=== PATIENT | female | born 1935 | race Caucasian/White ===

== ENCOUNTER 2018-06-27 12:54 | Emergency (ER) | payer MEDICARE, OTHER ==
[~2018-06-27] VITALS: Ht 154.9 cm; Wt 52.6 kg
[2018-06-27] MEDS ORDERED: CHLORTHALIDONE25 MG PO (13:20)
[2018-06-27] MEDS ORDERED: POTASSIUM CHLO10 ME1 PO (13:20)
--- NOTE | 2018-06-28 00:53 | EKG ---
[facility] [address] [place] [address] Signed Sinus rhythm with 1st degree AV block with frequent premature ventricular complexes and premature atrial complexes Otherwise normal ECG No previous ECGs available Confirmed by CANDACE POSADAS MD ([id number]) on 06/28/2018 12:53:19 AM Electronically Signed By: CANDACE POSADAS MD 06/28/18 0053 PATIENT NAME: MICHELLE LOMBARDI Stacia Electrocardiogram DATE OF : 35 PHYSICIAN: CANDACE POSADAS MD REPORT #: [id number] REPORT IS CONFIDENTIAL AND NOT TO BE RELEASED WITHOUT AUTHORIZATION
== END 2018-06-27 15:17 | disposition home or self-care (01) ==
LOC: ED 12:54
DX: T78.40XA Allergy, unspecified, initial encounter (principal); R05 Cough; I10 Essential (primary) hypertension; Z90.49 Acquired absence of other specified parts of digestive tract; Z91.030 Bee allergy status; Z91.048 Other nonmedicinal substance allergy status; Z79.899 Other long term (current) drug therapy
CPT/HCPCS: 71046; 80053; 83735; 83880; 84484; 85025; 93005; 93010; 94640; 99284-25

== ENCOUNTER 2018-12-10 07:46 | Emergency (ER) | payer MEDICARE, OTHER ==
[~2018-12-10] VITALS: Ht 154.9 cm; Wt 52.6 kg
[~2018-12-10 07:46] MED LIST: CHLORTHALIDONE25 MG PO; POTASSIUM CHLO10 ME1 PO
[2018-12-10] MEDS ORDERED: GABAPENTIN300 MG PO (07:56)
[2018-12-10] MEDS ORDERED: VENTOLIN HFA18 GM INH ×2 (07:57→10:26)
[2018-12-10] MEDS ORDERED: PREDNISONE20 MG PO (09:44)
== END 2018-12-10 10:33 | disposition home or self-care (01) ==
LOC: ED 07:46
DX: J45.901 Unspecified asthma with (acute) exacerbation (principal); I10 Essential (primary) hypertension; Z87.891 Personal history of nicotine dependence; Z91.030 Bee allergy status; Z79.899 Other long term (current) drug therapy
CPT/HCPCS: 71045; 80053; 83880; 84484; 85025; 94640; 96374; 99285-25; J2930

== ENCOUNTER 2018-12-25 17:39 | Emergency (ER) | payer MEDICARE, OTHER ==
[~2018-12-25] VITALS: Ht 154.9 cm; Wt 52.6 kg
[~2018-12-25 17:39] MED LIST changes: +GABAPENTIN300 MG PO; +PREDNISONE20 MG PO; +VENTOLIN HFA18 GM INH
--- OUTSIDE RECORDS SUMMARY | 2018-12-25 17:42 | XMS ---
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 - 2 Visits in 30 Days CARE PROVIDERS CK GILMORE Physician Floor Scraper 12/10/2018-Current PHONE: [phone] Ck Castro Treatment Current PAC PHONE: Unknown [facility] Current Orthopedic Surgery \T\ Fracture Clinic PHONE: Unknown Faisal has no Care Guidelines for this patient. E.DZabrina VISIT COUNT (12 MO.) 3 KATHY Echeverria TOTAL 3 NOTE: Visits indicate total known visits. ED/UCC VISIT TRACKING (12 MO.) 12/25/2018 17:40 [facility] [place] TYPE: Emergency COMPLAINT: - AFIB 12/10/2018 07:47 [facility] [place] TYPE: Emergency COMPLAINT: - SOB DIAGNOSES: - Shortness of breath - Personal history of nicotine dependence - Other usp (current) drug therapy - Essential (primary) hypertension - Bee allergy status - Unspecified asthma with (acute) exacerbation 06/27/2018 13:03 KATH[facility] [place] TYPE: Emergency COMPLAINT: - SOB/COUGH DIAGNOSES: - Essential (primary) hypertension - Cough - Other nonmedicinal substance allergy status - Acquired absence of other specified parts of digestive tract - Bee allergy status - Other terminal clerk (current) drug therapy - Allergy, unspecified, initial encounter INPATIENT VISIT TRACKING (12 MO.) No inpatient visits to display in this time frame [email or web address]
--- NOTE | 2018-12-26 11:24 | EKG ---
[facility] [address] [facility] [place], [place] [address] Signed Sinus tachycardia Inferior infarct , age undetermined Abnormal ECG When compared with ECG of 27-JUN-2018 13:12, Inferior infarct is now present Confirmed by MIRA TRIPATHI DO ([id number]) on 12/26/2018 11:23:41 AM Electronically Signed By: MIRA TRIPATHI DO 12/26/18 1124 PATIENT NAME: MARIA CMICHELLE Electrocardiogram DATE OF : 35 PHYSICIAN: MIRA TRIPATHI DO REPORT #: [id number] REPORT IS CONFIDENTIAL AND NOT TO BE RELEASED WITHOUT AUTHORIZATION
== END 2018-12-25 19:47 | disposition home or self-care (01) ==
LOC: ED 17:39
DX: R00.0 Tachycardia, unspecified (principal); I10 Essential (primary) hypertension; Z91.030 Bee allergy status; Z88.8 Allergy status to other drugs, medicaments and biological substances; Z79.899 Other long term (current) drug therapy
CPT/HCPCS: 71045; 80048; 84484; 85025; 85379; 93005; 93010; 96374; 99285-25

== ENCOUNTER 2019-09-17 11:11 | Emergency (ER) | payer MEDICARE, OTHER ==
[~2019-09-17] VITALS: Ht 154.9 cm; Wt 52.6 kg
--- OUTSIDE RECORDS SUMMARY | ~2019-09-17 | XMS | Encounter Summary ---
Demographics + + + | Address | [address] | | | [place] [address] | + + + | Home Phone | | + + + | Preferred Language | Unknown | + + + | Marital Status | | + + + | Amish Affiliation | Unknown | + + + | Race | Unknown | + + + | Ethnic Group | Unknown | + + + Author + + + | Author | [facility] | | | and [place] | + + + | Organization | [facility] | | | [...] Team Providers + +------+ + | Care Linderman Machine Operator Name | Role | Phone | + +------+ + | Jaz Desir | PCP | | | PA-C | | | + +------+ + Reason for Visit +--------+ + | Reason | Comments | +--------+ + | Other | [facility] Urgent Report | +--------+ + Encounter Details +--------+ + + + + | Date | Type | Department | Care Team | Description | +--------+ + + + + | 09/15/ | Documentati | [facility] | Raghu Montilla, | Other ([facility] | | 2019 | on | CARDIOLOGY [place] | Technologist | Urgent Report) | | | | [address] | | | | | | [place] | | | | | | [address] | | | | | | [phone] | | | +--------+ + + + [...] documented as of this encounter Progress Notes Raghu Montilla, Technologist - 09/16/2019 11:45 AM PDTReceived urgent report on : 020 Pt had an an urgent report: 09/15/2019 00:01, Possible 2nd degree AV block. 09/08/2019 04:26, Possible 2nd degree AV block. 09/13/2019 00:51, Possible 2nd degree AV block. 14 day monitor was placed on 09/04/2019 Medications: I called patient and I will continue to monitor. Please see attachment. 12:0 9 PM PDTdocumented in this encounter Plan of Treatment +--------+ + + + + | Date | Type | Specialty | Care Team | Description | +--------+ + + + + | 09/30/ | Office | Cardiology | Ana Cross | | | 2019 | Visit | | [address] | | | | | | [address] | | | | | | [place] [address] | | | | | | [phone] | | | | | | | | +--------+ + + + + | 11/09/ | Virtual | Cardiology | America Ana | | 2019 | Office | | [address] | | | | Visit | | [address] | | | | | | [place] [address] | | | | | | [phone] | | | | | | | | +--------+ + + + + | 12/01/ | Office | Cardiology | Alexander Darnell, | | | 2019 | Visit | | MD [address] | | | | | | [place], | | | | | | [place] [address] | | | | | | [phone] | | | | | | | | +--------+ + + + + documented as of this encounter Visit Diagnoses Not on filedocumented in this encounter"
--- OUTSIDE RECORDS SUMMARY | ~2019-09-17 | XMS | Encounter Summary ---
Demographics + + + | Address | [address] | | | [place] [address] | + + + | Home Phone | | + + + | Preferred Language | Unknown | + + + | Marital Status | | + + + | Synagogue Affiliation | Unknown | + + + | Race | Unknown | + + + | Ethnic Group | Unknown | + + + Author + + + | Author | [facility] | | | and [place] | + + + | Organization | [facility] | | | [...] Team Providers + +------+ + | Care Product Tester Name | Role | Phone | + +------+ + | Jaz Desir | PCP | | | PA-C | | | + +------+ + Reason for Visit +--------+ + | Reason | Comments | +--------+ + | Other | urgent report | +--------+ + Encounter Details +--------+ + + + + | Date | Type | Department | Care Team | Description | +--------+ + + + + | 09/11/ | Documentati | [facility] | Hermelinda Mcgovern, | Other (urgent | | 2020 | on | CARDIOLOGY [place] | Technologist | report) | | | | [address] | | | | | | [place] | | | | | | [address] | | | | | | [phone] | | | +--------+ + + + [...] + documented as of this encounter Progress Hermelinda Nunez Technologist - 09/12/2019 10:11 AM PDTReceived urgent report on :09/12/19 Pt had an an urgent report. 09/12/19 at 04:50 72 BPM for possible 2nd degree AV block with 2 :1 conduction < 40 BPM 14 day monitor was placed on 09/04/19 Medications:aspirin 325 MG EC tablet dilTIAZem (CARDIZEM CD) 180 mg 24 hr capsule I will continue to monitor. Please see attachment. documented in this encounter Plan of Treatment +--------+ + + + + | Date | Type | Specialty | Care Team | Description | +--------+ + + + + | 09/30/ | Office | Cardiology | Ana Cross | | | 2019 | Visit | | [address] | | | | | | [address] | | | | | | [place] [address] | | | | | | [phone] | | | | | | | | +--------+ + + + + | 11/09/ | Virtual | Cardiology | Ana Cross | | 2019 | Office | | [address] | | | | Visit | | [address] | | | | | | [place] [address] | | | | | | [phone] | | | | | | | | +--------+ + + + + | 12/01/ | Office | Cardiology | Alexander Darnell, | | | 2020 | Visit | | [address] | | | | | | [place], | | | | | | [place] [address] | | | | | | [phone] | | | | | | | | +--------+ + + + + documented as of this encounter Visit Diagnoses Not on filedocumented in this encounter"
--- OUTSIDE RECORDS SUMMARY | ~2019-09-17 | XMS | Encounter Summary ---
Demographics + + + | Address | [address] | | | [place] [address] | + + + | Home Phone | | + + + | Preferred Language | Unknown | + + + | Marital Status | | + + + | Episcopalian Affiliation | Unknown | + + + | Race | Unknown | + + + | Ethnic Group | Unknown | + + + Author + + + | Author | [facility] | | | and [place] | + + + | Organization | [facility] | | | [...] Team Providers + +------+ + | Care Private Eye Name | Role | Phone | + +------+ + | Jaz Desir | PCP | | | PA-C | | | + +------+ + Reason for Visit +---------+--------+ + | Reason | Onset | Comments | | | Date | | +---------+--------+ + | Testing | 08/17/ | | | | 2020 | | +---------+--------+ + Encounter Details +--------+ + + + + | Date | Type | Department | Care Team | Description | +--------+ + + + + | 08/17/ | Telephone | [facility] | Ana Cross | Testing | | 2020 | | CARDIOLOGY [place] | [address] | | | | | [address] | [address] | | | | | [place] | [place] [address] | | | | | [address] | [phone] | | | | | [phone] | | | +--------+ + + + [...] this encounter Miscellaneous Notes Telephone Encounter - AmericaAna, CLAMMER - 08/18/2019 4:58 PM PDTI called and spoke to her daughter Briseida about her recent labs, which had shown a potassium of 2.8, with a nor mal thyroid and renal function. I told her I was very concerned about the low potassium, an d have ordered her 20 mEq of potassium twice daily to start immediately. I also told her I would repeat the BMP in 1 week, and order the digoxin level again, as it was not done. I will see her as planned on August 27.Electronically signed by MYLES Cooper at 0 08/18/2019 5:00 PM PDTdocumented in this encounter Plan of [...] [address] | | | | | | [place] [address] | | | | | | [phone] | | | | | | | | +--------+ + + + + | 11/09/ | Virtual | Cardiology | Ana Cross | | 2019 | Office | | [address] | | | | Visit | | [address] | | | | | | [place] [address] | | | | | | [phone] | | | | | | | | +--------+ + + + + | 12/01/ | Office | Cardiology | Alexander Darnell, | | | 2019 | Visit | | MD [address] | | | | | | [place], | | | | | | [place] [address] | | | | | | [phone] | | | | | | | | +--------+ + + + + documented as of this encounter Visit Diagnoses Not on filedocumented in this encounter"
--- OUTSIDE RECORDS SUMMARY | ~2019-09-17 | XMS | Clinical Summary ---
Demographics + + + | Address | [address] | | | [place] [address] | + + + | Home Phone | | + + + | Preferred Language | Unknown | + + + | Marital Status | | + + + | Alevism Affiliation | Unknown | + + + | Race | Unknown | + + + | Ethnic Group | Unknown | + + + Author + + + | Author | [facility] | | | and [place] | + + + | Organization | [facility] | | [...] Team Providers + +------+ + | Care Cellophane Bath Mixer Name | Role | Phone | + +------+ + | Jaz Desir | PCP | | | PA-C | | | + +------+ + Allergies + + + + + + | Active Allergy | Reactions | Severity | Noted | Comments | | | | | Date | | + + + + + + | Methyldopa | Other (See Comments) | | 01/22/20 | Per patient | | | | | 20 | | + + + + + + | Amlodipine | Other (See Comments) | | 03/12/19 | Per patient | | | | | 20 | | + + + + + + | Bee Venom | Other (See Comments) | | 03/12/19 | Per patient | | | | | 20 | | + + + + + + | Valacyclovir | Nausea And Vomiting | | 03/12/19 | | | | | | 20 | | + + + + + + Medications + + + +---------+------+------+-------+ | Medication | Sig | Dispensed | Refills | Star | End | Statu | | | | | | t | Date | s | | | | | | Date | | | + + + +---------+------+------+-------+ | gabapentin | Take 300 mg by mouth | | 0 | | | Activ | | (NEURONTIN) 300 mg | 3 times daily. | | | | | e | | capsule | | | | | | | + + + +---------+------+------+-------+ | | Inhale 1 puff into | | 0 | | | Activ | | fluticasone-salmeter | the lungs 2 times | | | | | e | | ol (ADVAIRZAIDELA | daily. | | | | | | | INHUB) 250-50 | | | | | | | | mcg/puff diskus | | | | | | | | inhaler | | | | | | | + + + +---------+------+------+-------+ | Albuterol Sulfate | Inhale 2 puffs into | | 0 | | | Activ | | (VENTOLIN HFA IN) | the lungs as needed. | | | | | e | + + + +---------+------+------+-------+ | dilTIAZem | Take 1 capsule by | 30 | 11 | 02/2 | | Activ | | (CARDIZEM CD) 180 mg | mouth Daily. | capsule | | 4/20 | | e | | 24 hr capsule | | | | 20 | | | + + + +---------+------+------+-------+ | potassium chloride | Take 20 mEq by mouth | | 0 | | | Activ | | (KLOR-CON) 10 MEQ | Daily. | | | | | e | | ER tablet | | | | | | | + + + +---------+------+------+-------+ | aspirin 325 MG EC | Take 1 tablet by | 360 | 0 | 07/0 | | Activ | | tablet | mouth Daily. | tablet | | 9/20 | | e | | | | | | 20 | | | + + + +---------+------+------+-------+ | chlorthalidone 25 | Take 25 mg by mouth | | 0 | | 07/0 | Disco | | mg tablet | Daily. | | | | 11/08 | ntinu | | | | | | | 20 | ed | | | | | | | | (Ther | | | | | | | | apy | | | | | | | | compl | | | | | | | | eted) | + + + +---------+------+------+-------+ | digoxin (LANOXIN) | Take 1 tablet by | 30 | 11 | 06/19 | 08/20 | Disco | | 125 mcg tablet | mouth Daily. | tablet | | 10/08 | 03/10 | ntinu | | | | | | 20 | 20 | ed | | | | | | | | (Side | | | | | | | | | | | | | | | | effec | | | | | | | | ts) | + + + +---------+------+------+-------+ | potassium chloride | Take 2 capsules by | 120 | 11 | 07/21 | 070 | Disco | | (MICRO-K) 10 mEq CR | mouth 2 times daily | capsule | | 11/08 | 11/08 | ntinu | | capsule | (with breakfast & | | | 20 | 20 | ed | | | dinner). | | | | | (Charity | | | | | | | | ent | | | | | | | | Not | | | | | | | | Takin | | | | | | | | g) | + + + +---------+------+------+-------+ Active Problems + + + | Problem | Noted Date | + + + | Premature atrial contractions | 04/14/2019 | + + + | First degree AV block | 04/14/2019 | + + + | Essential hypertension | 04/14/2019 | + + + | Nonrheumatic aortic valve insufficiency | 04/14/2019 | + + + | Moderate mitral regurgitation by prior echocardiogram | 04/14/2019 | + + + | Mild tricuspid regurgitation by prior echocardiogram | 04/14/2019 | + + + | Tachycardia | 03/12/2019 | + + + Resolved Problems + + + + | Problem | Noted | Resolved | | | Date | Date | + + + + | Cardiac arrhythmia, unspecified | 03/12/19 | | | | 20 | 0 | + + + + Encounters +--------+ + + + + | Date | Type | Specialty | Care Team | Description | +--------+ + + + + | 09/16/ | Telephone | Cardiology | Ana Cross | Patient Concerns | 2019 | | | MY[address] Espinoza | | +--------+ + + + + | 09/16/ | Telephone | Cardiology | Betty Novoa, | Weakness; Emesis | | 2019 | | | RN | | +--------+ + + + + | 09/15/ | Documentati | Cardiology | Raghu Montilla, | Other ([facility] | 2019 | on | | Technologist | Urgent Report) | +--------+ + + + + | 09/11/ | Documentati | Cardiology | Hermelinda Mcgovern, | Other (urgent | 2019 | on | | Technologist | report) | +--------+ + + + + | 09/11/ | Documentati | Cardiology | Hermelinda Mcgovern, | Other (urgent | | 2019 | on | | Technologist | report) | +--------+ + + + + | 09/10/ | Documentati | Cardiology | Hermelinda Mcgovern, | Other (urgent | | 2019 | on | | Technologist | report) | +--------+ + + + + | 09/08/ | Telephone | Cardiology | Ana Cross | Testing | | 2019 | | | MYLES Espinoza | | +--------+ + + + + | 09/07/ | Documentati | Cardiology | Hermelinda Mcgovern, | Other (urgent | | 2019 | on | | Technologist | report) | +--------+ + + + + | 09/03/ | Procedure | Cardiology | Ana Cross | Tachycardia; First | | 2019 | visit | | MYLES Espinoza | degree AV block; | | | | | | Premature atrial | | | | | | contractions; | | | | | | Palpitations | +--------+ + + + + | 08/27/ | Office | Cardiology | Ana Cross | Tachycardia (Primary | | 2019 | Visit | | MYLES Espinoza | Dx); First degree | | | | | | AV block; Premature | | | | | | atrial contractions; | | | | | | Essential | | | | | | hypertension; | | | | | | Nonrheumatic aortic | | | | | | valve insufficiency; | | | | | | Moderate mitral | | | | | | regurgitation by | | | | | | prior | | | | | | echocardiogram; Mild | | | | | | tricuspid | | | | | | regurgitation by | | | | | | prior | | | | | | echocardiogram; | | | | | | Hypokalemia; | | | | | | Encounter for | | | | | | monitoring digoxin | | | | | | therapy; | | | | | | Palpitations | +--------+ + + + + | 08/20/ | Telephone | Cardiology | Ana Cross | Testing | | 2019 | | | MYLES Espinoza | | +--------+ + + + + | 08/17/ | Telephone | Cardiology | Ana Cross | Testing | | 2020 | | | MYLES Espinoza | | +--------+ + + + + | 07/06/ | Office | Cardiology | Ana Cross | Tachycardia (Primary | | 2019 | Visit | | MYLES Espinoza | Dx); First degree | | | | | | AV block; Premature | | | | | | atrial contractions; | | | | | | Essential | | | | | | hypertension; | | | | | | Nonrheumatic aortic | | | | | | valve insufficiency; | | | | | | Moderate mitral | | | | | | regurgitation by | | | | | | prior | | | | | | echocardiogram; Mild | | | | | | tricuspid | | | | | | regurgitation by | | | | | | prior | | | | | | echocardiogram; | | | | | | Screening for | | | | | | thyroid disorder; | | | | | | Encounter for | | | | | | monitoring digoxin | | | | | | therapy; Hypokalemia | +--------+ + + + + from Last 3 Months Social History + +-------+ +--------+------+ | Tobacco [...] on file | | + + + Last Filed Vital Signs + + + + + | Vital Sign | Reading | Time Taken | Comments | + + + + + | Blood Pressure | 110/64 | 08/28/2019 2:37 PM | | | | | PDT | | + + + + + | Pulse | 72 | 08/28/2019 2:37 PM | | | | | PDT | | + + + + + | Temperature | - | - | | + + + + + | Respiratory Rate | - | - | | + + + + + | Oxygen Saturation | 96% | 08/28/2019 2:37 PM | | | | | PDT | | + + + + + | Inhaled Oxygen | - | - | | | Concentration | | | | + + + + + | Weight | 51 kg (112 lb 8 oz) | 08/28/2019 2:37 PM | | | | | PDT | | + + + + + | Height | 152.4 cm (5') | 08/28/2019 2:37 PM | | | | | PDT | | + + + + + | Body Mass Index | 21.97 | 08/28/2019 2:37 PM | | | | | PDT | | + + + + + Plan of Treatment +--------+ + + + + | Date | Type | Specialty | Care Team | Description | +--------+ + + + + | 09/30/ | Office | Cardiology | Ana Cross | | | 2019 | Visit | | [address] | | | | | | [address] | | | | | | [place] [address] | | | | | | [phone] | | | | | | | | +--------+ + + + + | 11/09/ | Virtual | Cardiology | Ana Cross | | | 2019 | Office | | [address] | | | | Visit | | [address] | | | | | | [place] [address] | | | | | | [phone] | | | | | | | | +--------+ + + + + | 12/01/ | Office | Cardiology | Alexander Darnell, | | | 2019 | Visit | | [address] | | | | | | [place], | | | | | | [place] [address] | | | | | | [phone] | | | | | | | | +--------+ + + + + + + +-------+ + | Health Maintenance | Due Date | Last | Comments | | | | Done | | + + +-------+ + | Med Mgmt: Cr | | | | | | 6 | | | + + +-------+ + | Med Mgmt: K | | | | | | 6 | | | + + +-------+ + | Med Mgmt: eGFR | | | | | | 6 | | | + + +-------+ + | Medication | | | | | Management | 6 | | | + + +-------+ + | Vaccine: | | | | | Dtap/Tdap/Td (1 - | 5 | | | | Tdap) | | | | + + +-------+ + | Vaccine: Zoster (1 | | | | | of 2) | 6 | | | + + +-------+ + | Vaccine: | | | | | Pneumococcal 65+ (1 | 1 | | | | of 1 - PPSV23) | | | | + + +-------+ + | Adult Annual | | | | | Wellness Visit | 9 | | | + + +-------+ + | Vaccine: Influenza | | | | | (#1) | 0 | | | + + +-------+ + Procedures + +--------+ + + + | Procedure Name | Priori | Date/Time | Associated Diagnosis | Comments | | | ty | | | | + +--------+ + + + | ECG 12 LEAD | Routin | 08/28/2019 | Tachycardia First | Results for this | | | e | 2:50 PM | degree AV block | procedure are in the | | | | PDT | Premature atrial | results section. | | | | | contractions | | | | | | Essential | | | | | | hypertension | | | | | | Nonrheumatic aortic | | | | | | valve insufficiency | | | | | | Moderate mitral | | | | | | regurgitation by | | | | | | prior echocardiogram | | | | | | Mild tricuspid | | | | | | regurgitation by | | | | | | prior echocardiogram | | | | | | Hypokalemia | | | | | | Encounter for | | | | | | monitoring digoxin | | | | | | therapy | | + +--------+ + + + | LABS - EXTERNAL SCAN | | 08/15/2019 | | Results for this | | | | 12:00 AM | | procedure are in the | | | | PDT | | results section. | + +--------+ + + + from Last 3 Months Results ECG 12 lead (08/28/2019 2:50 PM PDT) + + + + + + | Component | Value | Ref Range | Performed | Pathologist | | | | | At | Signature | + + + + + + | VENTRICULAR | 76 | BPM | [facility] | | | RATE EKG | | | | | + + + + + + | ATRIAL RATE | 76 | BPM | [facility] | | + + + + + + | P-R | 346 | ms | [facility] | | | INTERVAL | | | | | + + + + + + | QRS | 68 | ms | [facility] | | | DURATION | | | | | + + + + + + | Q-T | 348 | ms | [facility] | | | INTERVAL | | | | | + + + + + + | Q-T | 391 | ms | [facility] | | | INTERVAL | | | | | | (CORRECTED) | | | | | + + + + + + | P WAVE AXIS | 60 | degrees | [facility] | | + + + + + + | QRS AXIS | 38 | degrees | [facility] | | + + + + + + | T AXIS | 47 | degrees | [facility] | | + + + + + + | INTERPRETAT | Sinus rhythm with marked | | [facility] | | | ION TEXT | sinus arrhythmia with | | | | | | 1st degree A-V blockLow | | | | | | voltage QRSNonspecific | | | | | | ST and T wave | | | | | | abnormalityAbnormal | | | | | | ECGWhen compared with | | | | | | ECG of 22-ETAHN-2020 | | | | | | 15:14,Premature | | | | | | supraventricular | | | | | | complexes are no longer | | | | | | PresentNonspecific T | | | | | | wave abnormality now | | | | | | evident in Anterior | | | | | | leadsQT has | | | | | | shortenedConfirmed by | | | | | | ANA JARAMILLO | | | | | | ([id number]) on 08/28/2019 | | | | | | 5:55:54 PM | | | | + + + + + + + + | Specimen | + + | | + + + + + | Narrative | Performed At | + + + | | | + + + + +---------+ + + | Performing | Address | City/State/Zipcode | Phone Number | | Organization | | | | + +---------+ + + | [facility] | | | | + +---------+ + + LABS - EXTERNAL SCAN (08/15/2019 12:00 AM PDT) + + + | Narrative | Performed At | + + + | Ordered by an | | | unspecified provider. | | + + + from Last 3 Months Insurance + +--------+ +--------+ +---------+--------+ | Payer | Benefi | Subscriber | Effect | Phone | Address | Type | | | t Plan | ID | tito | | | | | | / | | Dates | | | | | | Group | | | | | | + +--------+ +--------+ +---------+--------+ | MEDICARE | MEDICA | [id number] | 05/21/19 | [phone] | | Medica | | | RE | | 01-Pre | 5 | | re | | | PART A | | sent | | | | | | AND B | | | | | | + +--------+ +--------+ +---------+--------+ | CIGNA | CIGNA | [id number] | | [phone] | | Indemn | | | MDCR | | 017-Pr | 1 | | ity | | | SUPPLE | | esent | | | | | | MENT | | | | | | | | SOLUTI | | | | | | | | ONS | | | | | | + +--------+ +--------+ +---------+--------+ + +--------+ +--------+ + + | Guarantor Name | Accoun | Relation to | Date | Phone | Billing Address | | | t Type | Patient | of | | | | | | | | | | + +--------+ +--------+ + + | Kae Jeter | Person | Self [birth year] | [address] | | | al/Fam | | 1936 | [phone] | [place], [place] | | | [place] | | | [address] (Home) | [address] | + +--------+ +--------+ + + Advance Directives + + + + + | Type | Date Recorded | Patient | Explanation | | | | Insert Molding Operator | | + + + + + | Power of | | | | | Resolution Agent | | | | + + + + + | Advance | | | | | Directive | | | | + + + + +"
--- OUTSIDE RECORDS SUMMARY | ~2019-09-17 | XMS | Encounter Summary ---
Demographics + + + | Address | [address] | | | [place] [address] | + + + | Home Phone | | + + + | Preferred Language | Unknown | + + + | Marital Status | | + + + | Voodoo Affiliation | Unknown | + + + | Race | Unknown | + + + | Ethnic Group | Unknown | + + + Author + + + | Author | [facility] | | | and [place] | + + + | Organization | [facility] | | | [...] Team Providers + +------+ + | Care Supervisor Cold Rolling Name | Role | Phone | + [...] + + | 09/03/ | Procedure | [facility] | Ana Cross | Tachycardia; First | | 2019 | visit | CARDIOLOGY [place] | [address] | degree AV block; | | | | [address] | [address] | Premature atrial | | | | [address] | [place] [address] | contractions; | | | | [place] | [phone] | Palpitations | | | | [address] | | | | | | [phone] | | | +--------+ + + + [...] PDT14 day cardiac event [facility] EOB/Billing information discussed. Instructions given and [...] | | 2019 | Visit | | [address] | | | | | | [address] | | | | | | [place] [address] | | | | | | [phone] | | | | | | | | +--------+ + + + + | 11/09/ | Virtual | Cardiology | Ana Cross | | | 2019 | Office | | [address] | | | | Visit | | [address] | | | | | | [place] [address] | | | | | | [phone] | | | | | | | | +--------+ + + + + | 12/01/ | Office | Cardiology | Alexander Darnell, | | | 2019 | Visit | | MD [address] | | | | | | [place], | | | | | | [place] [address] | | | | | | | | | | | | (Fax) | | +--------+ + + + + [...]
--- OUTSIDE RECORDS SUMMARY | ~2019-09-17 | XMS | Encounter Summary ---
Demographics + + + | Address | [address] | | | [place] [address] | + + + | Home Phone | | + + + | Preferred Language | Unknown | + + + | Marital Status | | + + + | Roman Catholic Affiliation | Unknown | + + + | Race | Unknown | + + + | Ethnic Group | Unknown | + + + Author + + + | Author | [facility] | | | and [place] | + + + | Organization | [facility] | | | [...] Team Providers + +------+ + | Care Plant Controller Name | Role | Phone | + +------+ + | Jaz Desir | PCP | | | PA-C | | | + +------+ + Reason for Referral Diagnostic/Screening (Routine) + +--------+ + + + + | Status | Reason | Specialty | Diagnoses / | Referred By | Referred To | | | | | Procedures | Contact | Contact | + +--------+ + + + + | Authorizatio | | Radiology | Diagnoses | Alqaisi, | [facility] | | n not | | | Tachycardia | MD Martín | [address] | | Required | | | Cardiac | [address] | | | | | arrhythmia, | [address] | [place], [place] | | | | | unspecified | [place], | [address] | | | | | cardiac | [place] [address] | Phone: | | | | | arrhythmia | Phone: | [phone] | | | | | type | [phone] | Fax: | | | | | Procedures | Fax: | [phone] | | | | | ECHO | [phone] | | | | | | Complete | | | + +--------+ + + + + Reason for Visit + + + [...] Authorized | | Cardiology | Diagnoses | Brown, | Alerikaaitamela, | | | | | Unspecified | Jaz | MD Martín | | | | | atrial | Bhavani, | [address] | | | | | fibrillation | PA-C [address] | | | | | | (HCC) | [address] | [place], [place] | | | | | Procedures | Ave | [address] Phone: | | | | | CONSULT & 14 | [place], | [phone] | | | | | day monitor | [place] | Fax: | | | | | | [address] | [phone] | | | | | | Phone: | | | | | | | [phone] | | | | | | | Fax: | | | | | | | [phone] | | + +--------+ + + + + Encounter Details +--------+---------+ + + + | Date | Type | Department | Care Team | Description | +--------+---------+ + + + | 03/12/ | Office | [facility] | Martín Auguste MD | Tachycardia; Cardiac | | 2019 | Visit | CARDIOLOGY [place] | [address] | arrhythmia, | | | | [address] | [place] [address] | unspecified cardiac | | | | [place], [place] | [phone] | arrhythmia type | | | | [address] | | | | | | [phone] | | | +--------+---------+ + + + [...] +---------+ + | Yes | | | | + + +---------+ + + + + | Sex Assigned at | Date Recorded | | | | + + + | Not on file | | + + + documented as of this encounter Last Filed Vital Signs + + + + + | Vital Sign | Reading | Time Taken | Comments | + + + + + | Blood Pressure | 108/72 | 03/12/2019 2:25 PM | | | | | PST | | + + + + + | Pulse | 90 | 03/12/2019 2:25 PM | | | | | PST | | + + + + + | Temperature | - | - | | + + + + + | Respiratory Rate | - | - | | + + + + + | Oxygen Saturation | 100% | 03/12/2019 2:25 PM | | | | | PST | | + + + + + | Inhaled Oxygen | - | - | | | Concentration | | | | + + + + + | Weight | 53.5 kg (118 lb) | 03/12/2019 2:25 PM | | | | | PST | | + + + + + | Height | 152.4 cm (5') | 03/12/2019 2:25 PM | | | | | PST | | + + + + + | Body Mass Index | 23.05 | 03/12/2019 2:25 PM | | | | | PST | | + + + + + documented in this encounter Progress Notes Martín Auguste MD - 03/12/2019 2:00 PM PST Date of visit: 03/12/2019 Primary Care Physician: Jaz Desir PA-C CHIEF COMPLAINT: Chief Complaint Patient presents with Establish Care HISTORY OF PRESENT ILLNESS: Kae Jeter is 83 y.o. lady who was referred to my clinic with concerns about atria l fibrillation. She went to the doctor's office complaining of shortness of breath. She was found to have fast and irregular heart rate. ECG was suggestive of atrial fibrilla tion. The patient denied chest pain, palpitations or dizziness. She was found in the ER to have a low saturation and high heart rate. She feels better. Shortness of breath has improved. She has limited activity. REVIEW OF SYSTEMS: Negative except for pertinent items noted in HPI. Review of Systems Constitutional: Negative for fatigue. HENT: Negative for nosebleeds. Eyes: Negative for visual disturbance. Respiratory: Negative for cough. Shortness of breath. Cardiovascular: Negative for chest pain, palpitations and leg swelling. Gastrointestinal: Negative for nausea, vomiting, abdominal pain and blood in stool. Genitourinary: Negative for hematuria. Musculoskeletal: Negative for myalgias, back pain and arthralgias. Skin: Negative for color change. Neurological: Negative for dizziness, syncope and numbness. Hematological: Does not bruise/bleed easily. Psychiatric/Behavioral: The patient is not nervous/anxious. PHYSICAL EXAM: BP 108/72 | Pulse 90 | Ht 1.524 m (5') | Wt 53.5 kg (118 lb) | SpO2 100% | BMI 23.05 k g/m Physical Exam Constitutional: Well-developed. Neck: No JVD present. No thyromegaly present. Cardiovascular: Irregular rhythm, S1 normal and S2 normal. No murmur heard. Pulses: Carotid pulses are 2+ on the right side, and 2+ on the left side. Radial pulses are 2+ on the right side, and 2+ on the left side. Pulmonary/Chest: Effort normal and breath sounds normal. No wheezes. No rales. Abdominal: Soft. No tenderness. Musculoskeletal: No edema. Neurological: Alert. No cranial nerve deficit. Skin: Warm and dry. DATA: Blood tests: No results found for: WBC, RBC, HGB, HCT, PLT No results found for: NA, K, CL, CO2, ANIONGAP, GLUF, BUN, CREATININE, EGFR No results found for: CHOL, TRIG, LDL, LDL, GLUF No results found for: BNP, TSH, CRP No results found for: TOTEPI December 2018 WBC 7.6, hemoglobin 15.9, platelet 235 Sodium 136, potassium 3.4, BUN 18, creatinine 0.62 Troponin negative. EKG: January 11, 2020, reviewed personally on January 11, 2020. Sinus rhythm, heart rate 90, sinus arrhythmia, PACs, normally conducted, first-degree AV block. December 25, 2018, reviewed personally on March 12, 2019. Sinus tachycardic, heart rate 1 19, evidence of P waves on the tail of the T waves. Normal QRS voltage in duration, normal ST-T segment and QT interval. Last Echo: Last stress test: Last cath: Carotid US: AAA screening: Lower extremity US: OTHERS: Monitor for 14 days. January 2019. Predominantly sinus rhythm, average rate 97, slowest 6 4, maximum 158. 4325 single PVCs, 87 couplets and 1 triplet. 2 episodes of nonsustained V. tach, longest 6 beats. Total ventricular activity 0.24%. 87,524 single PACs, 1790 couplets and 60 triplets. Total supraventricular activity 4.89%. 579 episodes mainly at night. No atrial fibrillation. No symptoms were reported. Plan ASSESSMENT & PLAN: Kae Jeter is a 83 y.o. lady with the following medical conditions: 1. Hypertension 2. Asthma Referred for evaluation of arrhythmia with concerns about atrial fibrillation. I have reviewed her ECGs in details as well as the monitor. I do not believe the patient has atrial fibrillation. Her rhythm was sinus tachycardia, sinus arrhythmia with frequent PACs. The first-degree AV block made the P waves merges with the T waves. There is no indication for anticoagulation. I recommended an echocardiogram and Cardizem 120 mg once a day. Follow-up with [facility] [place] for review the results and the effect of the Cardizem. Follow-up with me as needed. Medications Placed This Encounter Medications dilTIAZem (DILTIAZEM CD) 120 mg 24 hr capsule Sig: Take 1 capsule by mouth Daily. Dispense: 90 capsule Refill: 3 The following portions of the patient's history were reviewed and updated as appropriate: Allergies, current medications. Family history, past medical history, past social history, past surgical history. Problem list. Thank you for allowing me to participate in the care of this patient. Please, do not hesitate to contact me for any further questions. Martín Auguste MD 03/12/2019 documented in this encounter Plan of Treatment +--------+ + + + + | Date | Type | Specialty | Care Team | Description | +--------+ + + + + | 09/30/ | Office | Cardiology | Ana Cross | | | 2019 | Visit | | [address] | | | | | | [address] | | | | | | [place] [address] | | | | | | [phone] | | | | | | | | +--------+ + + + + | 11/09/ | Virtual | Cardiology | Ana Cross | | | 2019 | Office | | [address] | | | | Visit | | [address] | | | | | | [place] [address] | | | | | | [phone] | | | | | | | | +--------+ + + + + | 12/01/ | Office | Cardiology | Alexander Darnell, | | | 2019 | Visit | | MD [address] | | | | | | [place] | | | | | | [place] [address] | | | | | | [phone] | | | | | | | | +--------+ + + + + + + +--------+ + + | Name | Type | Priori | Associated Diagnoses | Order Schedule | | | | ty | | | + + +--------+ + + | ECHO Complete | Echocardiog | Routin | Tachycardia | Expected: | | | mio | e | Cardiac arrhythmia, | 03/12/2019, Expires: | | | | | unspecified cardiac | 03/12/2020 | | | | | arrhythmia type | | + + +--------+ + + documented as of this encounter Procedures + +--------+ + + + | Procedure Name | Priori | Date/Time | Associated Diagnosis | Comments | | | ty | | | | + +--------+ + + + | ECG 12 LEAD | Routin | 03/12/2019 | Tachycardia | Results for this | | | e | 3:14 PM | | procedure are in the | | | | PST | | results section. | + +--------+ + + + documented in this encounter Results ECG 12 lead (03/12/2019 3:14 PM PST) + + + + + + | Component | Value | Ref Range | Performed | Pathologist | | | | | At | Signature | + + + + + + | VENTRICULAR | 90 | BPM | [facility] | | | RATE EKG | | | | | + + + + + + | ATRIAL RATE | 90 | BPM | [facility] | | + + + + + + | P-R | 254 | ms | [facility] | | | INTERVAL | | | | | + + + + + + | QRS | 74 | ms | [facility] | | | DURATION | | | | | + + + + + + | Q-T | 362 | ms | [facility] | | | INTERVAL | | | | | + + + + + + | Q-T | 442 | ms | [facility] | | | INTERVAL | | | | | | (CORRECTED) | | | | | + + + + + + | P WAVE AXIS | 78 | degrees | [facility] | | + + + + + + | QRS AXIS | 33 | degrees | [facility] | | + + + + + + | T AXIS | 28 | degrees | [facility] | | + + + + + + | INTERPRETAT | Sinus rhythm with 1st | | [facility] | | | ION TEXT | degree A-V block with | | | | | | Premature | | | | | | supraventricular | | | | | | complexesOtherwise | | | | | | normal ECGNo previous | | | | | | ECGs availableConfirmed | | | | | | by MARTÍN AUGUSTE MD | | | | | | ([id number]) on 03/12/2019 | | | | | | 3:52:02 PM | | | | + + [...] | | | + +---------+ + + documented in this encounter Visit Diagnoses + + | Diagnosis | + + | Tachycardia Tachycardia, unspecified | + + | Cardiac arrhythmia, unspecified cardiac arrhythmia type | + + documented in this encounter"
--- OUTSIDE RECORDS SUMMARY | ~2019-09-17 | XMS | Encounter Summary ---
Demographics + + + | Address | [address] | | | [place] [address] | + + + | Home Phone | | + + + | Preferred Language | Unknown | + + + | Marital Status | | + + + | Samaritan Affiliation | Unknown | + + + | Race | Unknown | + + + | Ethnic Group | Unknown | + + + Author + + + | Author | [facility] | | | and [place] | + + + | Organization | [facility] | | | [...] Team Providers + +------+ + | Care Digital Asset Manager Name | Role | Phone | [...] | | | | | fibrillation | [address] | | | | | | ([facility]) | [address] | [place], [place] | | | | | Procedures | Ave | [address] Phone: | | | | | CONSULT & 14 | [place], | [phone] | | | | | day monitor | [place] | Fax: | | | | | | [address] | [phone] | | | | | | Phone: | | | | | | | [phone] | | | | | | | Fax: | | | | | | | [phone] | | + +--------+ + + + + Encounter Details +--------+---------+ + + + | Date | Type | Department | Care Team | Description | +--------+---------+ + + + | 04/14/ | Office | [facility] | Ana Cross | Tachycardia (Primary | | 2019 | Visit | CARDIOLOGY [place] | [address] | Dx); Premature | | | | [address] | [address] | atrial contractions; | | | | [address] | [place] [address] | First degree AV | | | | [place] | [phone] | block; Essential | | | | [address] | | hypertension; | | | | [phone] | | Nonrheumatic aortic | | | [...] use. Exer cises seldom . Lives in [place] [facility] Medications Prior to Visit Medication Sig [...] mmHg v alve not well visualized, trace [place] EKG/EVENT MONITOR Event Monitor 2 week : [...] and anterior le ads.Rate 90 bpm , KS 254, QRS 74 ms, QTC 443, tracing personally reviewed by ms LABS Labs: 12/10/2018:( [facility] ER) CBC: WBC 5.7, RBC 4.9, hemoglobin 16.3, hematocrit 47.4, platel ets 202. CMP: Glucose 121, BUN 10, creatinine 0.55, GFR 106, sodium 137, potassium 3.2, alb umin 3.5 bilirubin 0.9, AST 24, ALT 15, alk phos 99, troponin T i <0.010, BNP 124 Labs: 12/25/2018: ( [facility] ER):CBC: WBC 7.6, RBC 4.9, hemoglobin 15.9, [...] for continuity of care purp ron MEEKS [facility] Cardiology 04/14/2019 Zach watson in this [...] [address] | | | | | | [place] [address] | | | | | | [phone] | | | | | | | | +--------+ + + + + | 11/09/ | Virtual | Cardiology | Ana Cross | | 2019 | Office | | [address] | | | | Visit | | [address] | | | | | | [place] [address] | | | | | | [phone] | | | | | | | | +--------+ + + + + | 12/01/ | Office | Cardiology | Alexander Darnell, | | | 2019 | Visit | | MD [address] | | | | | | [place], | | | | | | [place] [address] | | | | | | [phone] | | | | | | | [...]
--- OUTSIDE RECORDS SUMMARY | ~2019-09-17 | XMS | Encounter Summary ---
Demographics + + + | Address | [address] | | | [place] [address] | + + + | Home Phone | | + + + | Preferred Language | Unknown | + + + | Marital Status | | + + + | Episcopal Affiliation | Unknown | + + + | Race | Unknown | + + + | Ethnic Group | Unknown | + + + Author + + + | Author | [facility] | | | and [place] | + + + | Organization | [facility] | | [...] Team Providers + +------+ + | Care Crepe Machine Operator Name | Role | Phone [...] + + | 09/11/ | Documentati | [facility] | Hermelinda Mcgovern, | Other (urgent | | 2020 | on | CARDIOLOGY [place] | Technologist | report) | | | | [address] | | | | | | [place] | | | | | | [address] | | | | | | [phone] | | | +--------+ + + + [...] [address] | | | | | | [place] [address] | | | | | | [phone] | | | | | | | | +--------+ + + + + | 11/09/ | Virtual | Cardiology | Ana Cross | | | 2019 | Office | | [address] | | | | Visit | | [address] | | | | | | [place] [address] | | | | | | [phone] | | | | | | | | +--------+ + + + + | 12/01/ | Office | Cardiology | Alexander Darnell, | | | 2020 | Visit | | [address] | | | | | | [place], | | | | | | [place] [address] | | | | | | [phone] | | | | | | | | +--------+ + + + + documented as of this encounter Visit Diagnoses Not on filedocumented in this encounter"
--- OUTSIDE RECORDS SUMMARY | ~2019-09-17 | XMS | Encounter Summary ---
Demographics + + + | Address | [address] | | | [place] [address] | + + + | Home Phone | | + + + | Preferred Language | Unknown | + + + | Marital Status | | + + + | Sikhism Affiliation | Unknown | + + + | Race | Unknown | + + + | Ethnic Group | Unknown | + + + Author + + + | Author | [facility] | | | and [place] | + + + | Organization | [facility] | | | [...] Team Providers + +------+ + | Care Atm Mechanic Name | Role | Phone | [...] + + | 09/08/ | Telephone | [facility] | Ana Cross | Testing | | 2020 | | [facility]ARDIOLOGY [facility] | [address] | | | | | [address] | [address] | | | | | [address] | [place] [address] | | | | | [address] | [phone] | | | | | [phone] | | | +--------+ + + + [...] | Ana Cross | | 2019 | Visit | | [address] | | | | | | [address] | | | | | | [place] [address] | | | | | | [phone] | | | | | | | | +--------+ + + + + | 11/09/ | Virtual | Cardiology | Ana Cross | | 2019 | Office | | [address] | | | | Visit | | [address] | | | | | | [place] [address] | | | | | | [phone] | | | | | | | | +--------+ + + + + | 12/01/ | Office | Cardiology | Alexander Darnell, | | | 2020 | Visit | | [address] | | | | | | [place], | | | | | | [place] [address] | | | | | | [phone] | | | | | | | | +--------+ + + + + documented as of this encounter Visit Diagnoses Not on filedocumented in this encounter"
--- OUTSIDE RECORDS SUMMARY | ~2019-09-17 | XMS | Encounter Summary ---
Demographics + + + | Address | [address] | | | [place] [address] | + + + | Home Phone [...] Team Providers + +------+ + | Care Airdox Fitter Name | Role | Phone | + [...] + + | 02/06/ | Procedure | [facility] | Jaz Desir | Atrial fibrillation, | | 2019 | visit | CARDIOLOGY [place] | [address] | unspecified type | | | | [address] | [address] | ([facility] | | | | [address] | [place], [place] | | | | | [place], [place] | [address] | | | | | [address] | [phone] | | | | | [phone] | | | | | | | Inga Phelps DO | | | | | | [address] | | | | | | [place] | | | | | | [address] | | | | | | | [...] of this encounter Progress Notes Sandra Carrillo, Monument Stonecutter - 02/06/2019 2:15 PM PST14 day cardiac event monitor placed on patient. EOB/Billing information discussed. Instructions given and understood. P atient instructed to call [employer] for any billing or monitor questions. JDW:INTEGRITY ANALYST-AAMA. doc umented in this encounter Plan of [...] | | | | | | [place] [address] | | | | | | [phone] | | | | | | | | +--------+ + + + + | 11/09/ | Virtual | Cardiology | Ana Cross | | | 2019 | Office | | [address] | | | | Visit | | [address] | | | | | | [place] [address] | | | | | | [phone] | | | | | | | | +--------+ + + + + | 12/01/ | Office | Cardiology | Alexander Darnell, | | | 2019 | Visit | | MD [address] | | | | | | [place], | | | | | | [place] [address] | | | | | | [phone] | | | | | | | | +--------+ + + + + documented as of this encounter Visit Diagnoses + + | Diagnosis | + + | Atrial fibrillation, unspecified type (HCC) | + + documented in this encounter"
--- OUTSIDE RECORDS SUMMARY | ~2019-09-17 | XMS | Encounter Summary ---
Demographics + + + | Address | [address] | | | [place] [address] | + + + | Home Phone | | + + + | Preferred Language | Unknown | + + + | Marital Status | | + + + | Advent Affiliation | Unknown | + + + | Race | Unknown | + + + | Ethnic Group | Unknown | + + + Author + + + | Author | [facility] | | | and [place] | + + + | Organization | [facility] | | [...] + + | 09/10/ | Documentati | [facility] | Hermelinda Mcgovern, | Other (urgent | | 2020 | on | CARDIOLOGY [place] | Technologist | report) | | | | [address] | | | | | | [place] | | | | | | [address] | | | | | | [phone] | | | +--------+ + + + [...] [address] | | | | | | [place] [address] | | | | | | [phone] | | | | | | | | +--------+ + + + + | 11/09/ | Virtual | Cardiology | Ana Cross | | 2019 | Office | | [address] | | | | Visit | | [address] | | | | | | [place] [address] | | | | | | [phone] | | | | | | | | +--------+ + + + + | 12/01/ | Office | Cardiology | Alexander Darnell, | | | 2019 | Visit | | MD [address] | | | | | | [place], | | | | | | [place] [address] | | | | | | [phone] | | | | | | | | +--------+ + + + + documented as of this encounter Visit Diagnoses Not on filedocumented in this encounter"
--- OUTSIDE RECORDS SUMMARY | ~2019-09-17 | XMS | Encounter Summary ---
Demographics + + + | Address | [address] | | | [place] [address] | + + + | Home Phone [...] Team Providers + +------+ + | Care Air Control Electronics Operator Name | Role | Phone | [...] + + | 02/13/ | Documentati | [facility] | Hermelinda Mcgovern, | Other (urgent | | 2019 | on | CARDIOLOGY [place] | Technologist | report) | | | | [address] | | | | | | [facility] [place] | | | | | | [address] | | | | | | [phone] | | | +--------+ + + + [...] | | | | | | [place] [address] | | | | | | [phone] | | | | | | | | +--------+ + + + + | 11/09/ | Virtual | Cardiology | Ana Cross | | | 2019 | Office | | [address] | | | | Visit | | [address] | | | | | | [place] [address] | | | | | | [phone] | | | | | | | | +--------+ + + + + | 12/01/ | Office | Cardiology | Alexander Darnell, | | | 2019 | Visit | | MD [address] | | | | | | [place], | | | | | | [place] [address] | | | | | | [phone] | | | | | | | | +--------+ + + + + documented as of this encounter Visit Diagnoses Not on filedocumented in this encounter"
--- OUTSIDE RECORDS SUMMARY | ~2019-09-17 | XMS | Encounter Summary ---
Demographics + + + | Address | [address] | | | [place] [address] | + + + | Home Phone [...] Team Providers + +------+ + | Care Rubber Thread Spooler Name | Role | Phone | + [...] + + | 09/16/ | Telephone | [facility] | Betty Novoa, | Weakness; Emesis | | 2019 | | CARDIOLOGY [place] Rogers RN | | | | | [address] | | | | | | [place] | | | | | | [address] | | | | | | [phone] | | | +--------+ + + + [...] with any changes or concerns. AKASH Hernández [facility] umcaryn in this encounter Plan of Treatment +--------+ + + + + | Date | Type | Specialty | Care Team | Description | +--------+ + + + + | 09/30/ | Office | Cardiology | Ana Cross | | 2019 | Visit | | [address] | | | | | | [address] | | | | | | [place] [address] | | | | | | [phone] | | | | | | | | +--------+ + + + + | 11/09/ | Virtual | Cardiology | IjeomamauroAna | | | 2019 | Office | | [address] | | | | Visit | | [address] | | | | | | [place] [address] | | | | | | [phone] | | | | | | | | +--------+ + + + + | 12/01/ | Office | Cardiology | Alexander Darnell, | | | 2019 | Visit | | [address] | | | | | | [place], | | | | | | [place] [address] | | | | | | [phone] | | | | | | | | +--------+ + + + + documented as of this encounter Visit Diagnoses Not on filedocumented in this encounter"
--- OUTSIDE RECORDS SUMMARY | ~2019-09-17 | XMS | Encounter Summary ---
Demographics + + + | Address | [address] | | | [place] [address] | + + + | Home Phone | | + + + | Preferred Language | Unknown | + + + | Marital Status | | + + + | Sabianist Affiliation | Unknown | + + + [...] Team Providers + +------+ + | Care Dumpman Name | Role | Phone | + [...] + + | 09/07/ | Documentati | [facility] | Hermelinda Mcgovern, | Other (urgent | | 2020 | on | CARDIOLOGY [place] | Technologist | report) | | | | [address] | | | | | | [place] | | | | | | [address] | | | | | | [phone] | | | +--------+ + + + [...] documented as of this encounter Progress Hermelinda Nunez, Technologist - 09/08/2019 8:28 AM PDTReceived urgent [...] [address] | | | | | | [place] [address] | | | | | | [phone] | | | | | | | | +--------+ + + + + | 11/09/ | Virtual | Cardiology | Ana Cross | | 2019 | Office | | [address] | | | | Visit | | [address] | | | | | | [place] [address] | | | | | | [phone] | | | | | | | | +--------+ + + + + | 12/01/ | Office | Cardiology | Alexander Darnell, | | | 2019 | Visit | | MD [address] | | | | | | [place], | | | | | | [place] [address] | | | | | | [phone] | | | | | | | | +--------+ + + + + documented as of this encounter Visit Diagnoses Not on filedocumented in this encounter"
--- OUTSIDE RECORDS SUMMARY | ~2019-09-17 | XMS | Encounter Summary ---
Demographics + + + | Address | [address] | | | [place] [address] | + + + | Home Phone [...] Team Providers + +------+ + | Care Administrative Office Specialist Name | Role | Phone | [...] + + | 07/06/ | Office | [facility] | Soila Cross | Tachycardia (Primary | | 2019 | Visit | CARDIOLOGY TOMY | [address] | Dx); First degree | | | | [address] | [address] | AV block; Premature | | | | [address] | [place] [address] | atrial contractions; | | | | [place] | [phone] | Essential | | | | [address] | | hypertension; | | | | [phone] | | Nonrheumatic aortic | | | [...] in this encounter Patient Instructions Patient Instructions Soila Cross FNP - 07/07/2019 2:00 PM PDTI have ordered you non fasting labs to be done at [facility] in one month , but can drink water prior to [facility] labs done . Do not take your digoxin the day of your lab draw, take it after lab drawn I made changes to medications by adding digoxin 125 mcg daily in the morning See me back in 6 weeks, and I will have you establish care with Dr. Darnell in 4-5 months so h greyson primary life skills worker who comes to [place]. documented in this encounter Progress Notes Soila Cross FNP - 07/07/2019 2:00 PM PDTFormatting [...] pulmonary function since her asthma exacerbation in [facility]. She reports occasional mild pedal edema , [...] use. Exer cises seldom . Lives in [place] Outpatient Medications Prior to Visit Medication Sig [...] mmHg v alve not well visualized, trace NV EKG/EVENT MONITOR Event Monitor 2 week : [...] and anterior le ads.Rate 90 bpm , NV 254, QRS 74 ms, QTC 443, tracing personally reviewed by me EK07/07/2019:( Cardizem 180 mg) Sinus tachycardia with first-degree AV block, ongoing lo w voltage QRS leads III, aVL, aVF and anterolateral leads. Rate 103 bpm, NV 236 ms, QRS 75 ms, QTC 403 ms, tracing personally reviewed by me, and compared to EKG performed in February, rate is less well-controlled LABS Labs: 12/10/2018:( [facility]) CBC: WBC 5.7, RBC 4.9, hemoglobin 16.3, hematocrit 47.4, platel ets 202. CMP: Glucose 121, BUN 10, creatinine 0.55, GFR 106, sodium 137, potassium 3.2, alb umin 3.5 bilirubin 0.9, AST 24, ALT 15, alk phos 99, troponin T i <0.010, BNP 124 Labs: 12/25/2018: ( [facility] ER):CBC: WBC 7.6, RBC 4.9, hemoglobin [...] care with Dr. Darnell as her primary life skills worker who comes t o [place] so that she has a complete cardiology team of a life skills worker, as well as [facility]. She has an appointment with [...] previous notes for continuity of care purp ose Karen MEEKS [facility] Cardiology 07/07/2019 docume nted in this encounter Miscellaneous Notes Addendum Note - Soila Cross FNP - 07/07/2019 2:00 PM PDT Addended by: SOILA CROSS on: 08/18/2019 04:58 PM Modules accepted: Orders documented in this encounter Plan of Treatment +--------+ + + + + | Date | Type | Specialty | Care Team | Description | +--------+ + + + + | 09/30/ | Office | Cardiology | Soila Cross | | | 2019 | Visit | | [address] | | | | | | [address] | | | | | | [place] [address] | | | | | | [phone] | | | | | | | | +--------+ + + + + | 11/09/ | Virtual | Cardiology | Soila Cross | | 2019 | Office | | [address] | | | | Visit | | [address] | | | | | | [place] [address] | | | | | | [phone] | | | | | | | | +--------+ + + + + | 12/01/ | Office | Cardiology | Alexander Darnell, | | | 2019 | Visit | | [address] | | | | | | [place], | | | | | | [place] [address] | | | | | | [phone] | | | | | | | [...]
--- OUTSIDE RECORDS SUMMARY | ~2019-09-17 | XMS | Encounter Summary ---
Demographics + + + | Address | [address] | | | [place] [address] | + + + | Home Phone | | + + + | Preferred Language | Unknown | + + + | Marital Status | | + + + | Mormonism Affiliation | Unknown | + + + | Race | Unknown | + + + | Ethnic Group | Unknown | + + + Author + + + | Author | [facility] | | | and [place] | + + + | Organization | [facility] | | | and [...] Team Providers + +------+ + | Care Track Laying Equipment Operator Name | Role | Phone | [...] + + | 08/27/ | Office | [facility] | Ana Cross | Tachycardia (Primary | | 2020 | Visit | CARDIOLOGY ANA LAURA | [address] | Dx); First degree | | | | [address] | [address] [place] | AV block; Premature | | | | [address] | [place] [address] | atrial contractions; | | | | [place] | [phone] | Essential | | | | [address] | | hypertension; | | | | [phone] | | Nonrheumatic aortic | | | [...] non fasting labs to be done at [facility] in one month , but can drink [...] to follow up reports fro m her prosthetics lab technician that she may have atrial fibrillation as [...] evaluation for planned cataract surgery from her prosthetics lab technician Dr. Steve. Today, I reviewed all previous [...] weak. I r eceived notification from her prosthetics lab technician, Dr. Steve about her possible atrial fib, [...] use. Exer cises seldom . Lives in [place] Outpatient Medications Prior to Visit Medication Sig [...] mmHg v alve not well visualized, trace [place] EKG/EVENT MONITOR Event Monitor 2 week : [...] and anterior le ads.Rate 90 bpm , MN 254, QRS 74 ms, QTC 443, tracing personally reviewed by me EK07/07/2019:( Cardizem 180 mg) Sinus tachycardia with first-degree AV block, ongoing lo w voltage QRS leads III, aVL, aVF and anterolateral leads. Rate 103 bpm, MN 236 ms, QRS 75 ms, QTC 403 ms, tracing personally reviewed by me, and compared to EKG performed in February, rate is less well-controlled EK08/28/2019 (Cardizem 180/digoxin 125 )sinus rhythm with prolonged first-degree AV block. Rate 76 bpm, MN 346 ms, QRS 68 ms, QTC 391 ms, tracing personally reviewed by me and denise red to EKG performed in June, first-degree AV block has increased, and rate better controlled LABS Labs: 12/10/2018:( [facility]) CBC: WBC 5.7, RBC 4.9, hemoglobin 16.3, hematocrit 47.4, platel ets 202. CMP: Glucose 121, BUN 10, creatinine 0.55, GFR 106, sodium 137, potassium 3.2, alb umin 3.5 bilirubin 0.9, AST 24, ALT 15, alk phos 99, troponin T i <0.010, BNP 124 Labs: 12/25/2018: ( [facility] ER):CBC: WBC 7.6, RBC 4.9, hemoglobin [...] for planned cat aract surgery, as her prosthetics lab technician, Dr. Steve, had thought she might be [...] care with Dr. Darnell as her primary retinal angiographer who comes to [place] on 12/02/2019 so that she has a complete cardiology team of a retinal angiographer, as well as a ca rdiology nurse [...] notes for [facility] CAdoarnoldme walter in this encounter Plan of Treatment +--------+ + + + + | Date | Type | Specialty | Care Team | Description | +--------+ + + + + | 09/30/ | Office | Cardiology | America Ana | | 2019 | Visit | | [address] | | | | | | [address] | | | | | | [place] [address] | | | | | | [phone] | | | | | | | | +--------+ + + + + | 11/09/ | Virtual | Cardiology | Ana Cross | | 2019 | Office | | [address] | | | | Visit | | [address] | | | | | | [place] [address] | | | | | | [phone] | | | | | | | | +--------+ + + + + | 12/01/ | Office | Cardiology | Alexander Darnell, | | | 2019 | Visit | | MD [address] | | | | | | [place], | | | | | | [place] [address] | | | | | | [phone] | | | | | | | [...] Palpitations | | + +------+--------+ + + | Basic Metabolic | Lab | Routin | Essential | Expected: | | Panel | | e | hypertension | 09/28/2019, Expires: | | | | | Hypokalemia | 08/27/2020 | + +------+--------+ + + documented as [...] JARAMILLO | | | | | | ([id number]) on 08/28/2019 | | | | | [...]
--- OUTSIDE RECORDS SUMMARY | ~2019-09-17 | XMS | Encounter Summary ---
Demographics + + + | Address | [address] | | | [place] [address] | + + + | Home Phone | | + + + | Preferred Language | Unknown | + + + | Marital Status | | + + + | Quaker Affiliation | Unknown | + + + [...] Team Providers + +------+ + | Care Self Propelled Mining Machine Operator Name | Role | Phone [...] + + | 02/06/ | Documentati | [facility] | Hermelinda Mcgovern, | Other (end of study) | | 2019 | on | CARDIOLOGY [place]ERRON | Technologist | | | | | [address] | | | | | | [place], [place] | | | | | | [address] | | | | | | [phone] | | | +--------+ + + + [...] Technologist - 02/06/2019 11:59 PM PST Cardiac Flumer Date of Event Monitor: 02/06/19 Referring Physician: [...] | 09/30/ | Office | Cardiology | IjeomajasssooAna | | | 2019 | Visit | | [address] | | | | | | [address] [place] | | | | | | [place] [address] | | | | | | [phone] | | | | | | | | +--------+ + + + + | 11/09/ | Virtual | Cardiology | Ana Cross | | | 2019 | Office | | [address] | | | | Visit | | [address] | | | | | | [place] [address] | | | | | | [phone] | | | | | | | | +--------+ + + + + | 12/01/ | Office | Cardiology | Alexander Darnell, | | | 2019 | Visit | | [address] | | | | | | [place] | | | | | | [place] [address] | | | | | | [phone] | | | | | | | | +--------+ + + + + documented as of this encounter Visit Diagnoses + + | Diagnosis | + + | Atrial fibrillation, unspecified type (HCC) | + + documented in this encounter"
--- OUTSIDE RECORDS SUMMARY | ~2019-09-17 | XMS | Encounter Summary ---
Demographics + + + | Address | [address] [facility] [facility] | | | [place] [address] | + + + | Home Phone | | + + + | Preferred Language | Unknown | + + + | Marital Status | | + + + | Yarsanism Affiliation | Unknown | + + + | Race | Unknown | + + + | Ethnic Group | Unknown | + + + Author + + + | Author | [facility] | | | and [place] | + + + | Organization | [facility] | | | and [...] Team Providers + +------+ + | Care Woods Superintendent Name | Role | Phone | + [...] + + | 08/20/ | Telephone | [facility] | Ana Cross | Testing | | 2020 | | CARDIOLOGY ANA LAURA | [address] | | | | | [address] | [address] | | | | | [address] | [place] [address] | | | | | [place] | [phone] | | | | | [address] | | | | | | [phone] | | | +--------+ + + + [...] this encounter Miscellaneous Notes Telephone Encounter - IjeomaAna wade, MYLES - 08/21/2019 12:24 PM PDTReceived notificat ion from her regroover Dr. Steve on August 21, 2019 that she may be in atrial fib, and needs cardiac risk evaluation for cardiac surgery. I am seeing her on August 27, and we will repeat her EKG, and possibly order an event monitor if indicated. [facility] umcaryn in this encounter Plan of Treatment +--------+ + + + + | Date | Type | Specialty | Care Team | Description | +--------+ + + + + | 09/30/ | Office | Cardiology | Ana Cross | | 2019 | Visit | | [address] | | | | | | [address] | | | | | | [place] [address] | | | | | | [phone] | | | | | | | | +--------+ + + + + | 11/09/ | Virtual | Cardiology | Ana Cross | | 2019 | Office | | [address] | | | | Visit | | [address] | | | | | | [place] [address] | | | | | | [phone] | | | | | | | | +--------+ + + + + | 12/01/ | Office | Cardiology | Alexander Darnell, | | | 2019 | Visit | | MD [address] | | | | | | [place], | | | | | | [place] [address] | | | | | | [phone] | | | | | | | | +--------+ + + + + documented as of this encounter Visit Diagnoses Not on filedocumented in this encounter"
--- OUTSIDE RECORDS SUMMARY | ~2019-09-17 | XMS | Encounter Summary ---
Demographics + + + | Address | [address] | | | [place] [address] | + + + | Home Phone | | + + + | Preferred Language | Unknown | + + + | Marital Status | | + + + | Jainism Affiliation | Unknown | + + + | Race | Unknown | + + + | Ethnic Group | Unknown | + + + Author + + + | Author | [facility] | | | and [place] | + + + | Organization | [facility] | | | [...] Team Providers + +------+ + | Care Client Care Representative Name | Role | Phone | + +------+ + | Jaz Desir | PCP | | | PA-C | | | + +------+ + Reason for Visit + +--------+ + | Reason | Onset | Comments | | | Date | | + +--------+ + | Patient Concerns | 09/16/ | | | | 2020 | | + +--------+ + Encounter Details +--------+ + + + + | Date | Type | Department | Care Team | Description | +--------+ + + + + | 09/16/ | Telephone | [facility] | Ana Cross | Patient Concerns | | 2019 | | CARDIOLOGY CLAIRE | [address] | | | | | [address] | | | | | [address] | [place] [address] | | | | | [address] | [phone] | | | | | [phone] | | | +--------+ + + + [...] this encounter Miscellaneous Notes Telephone Encounter - America Ana Espinoza, MYLES - 09/17/2019 9:36 AM BLANCAI called her Daugh Perez back and spoke to her. She reports her mother is not having a lot of emesis, but is having a small amount at [facility] every other day, and though [...] to see her back sooner, possibly in [place] on September 29. She appreciated the call. [...] [address] | | | | | | [place] [address] | | | | | | [phone] | | | | | | | | +--------+ + + + + | 11/09/ | Virtual | Cardiology | Ana Cross | | | 2019 | Office | | [address] | | | | Visit | | [address] [place] | | | | | | [place] [address] | | | | | | [phone] | | | | | | | | +--------+ + + + + | 12/01/ | Office | Cardiology | Alexander Darnell, | | | 2019 | Visit | | [address] | | | | | | [place], | | | | | | [place] [address] | | | | | | [phone] | | | | | | | | +--------+ + + + + documented as of this encounter Visit Diagnoses Not on filedocumented in this encounter"
--- OUTSIDE RECORDS SUMMARY | ~2019-09-17 | XMS | Encounter Summary ---
Demographics + + + | Address | [address] | | | [place] [address] | + + + | Home Phone | | + + + | Preferred Language | Unknown | + + + | Marital Status | | + + + | Pentecostal Affiliation | Unknown | + + + | Race | Unknown | + + + | Ethnic Group | Unknown | + + + Author + + + | Author | [facility] | | | and [place] | + + + | Organization | [facility] | | | [...] Providers + +------+ + | Care Track Equipment Operator Name | Role | Phone | + +------+ + | Jaz Desir | PCP | | | PA-C | | | + +------+ + Encounter Details +--------+ + + + + | Date | Type | Department | Care Team | Description | +--------+ + + + + | 11// | Transcribed | [facility] | Jaz Desir | Atrial fibrillation, | | 2019 | Orders | CARDIOLOGY [place] | CAROL Beckham | unspecified type | | | | [address] | [address] | ([facility]) (Primary Dx) | | | | [place], [place] | [place], [place] | | | | | [address] | [address] | | | | | [phone] | [phone] | | | | | | | [...] [address] | | | | | | [place] [address] | | | | | | [phone] | | | | | | | | +--------+ + + + + | 11/09/ | Virtual | Cardiology | Ana Cross | | | 2019 | Office | | [address] | | | | Visit | | [address] | | | | | | [place] [address] | | | | | | [phone] | | | | | | | | +--------+ + + + + | 12/01/ | Office | Cardiology | Alexander Darnell, | | | 2019 | Visit | | MD [address] | | | | | | [place], | | | | | | [place] [address] | | | | | | [phone] | | | | | | | [...]
[2019-09-17] MEDS ORDERED: ONDANSETRON ODT8 MG PO (18:50)
[2019-09-17] MEDS ORDERED: K-TAB ER20 MEQ PO (18:50)
--- NOTE | 2019-09-18 21:33 | EKG ---
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
== END 2019-09-17 19:16 | disposition home or self-care (01) ==
LOC: ED 11:11
DX: E87.6 Hypokalemia (principal); I10 Essential (primary) hypertension; J45.909 Unspecified asthma, uncomplicated; Z91.030 Bee allergy status; Z88.8 Allergy status to other drugs, medicaments and biological substances; Z79.899 Other long term (current) drug therapy
CPT/HCPCS: 71046; 80053; 83735; 84443; 84484; 85025; 93005; 93010; 96374; 99285-25; J3480; J7040; J7060

== ENCOUNTER 2019-12-09 17:48 | Observation (INO) | payer MEDICARE, OTHER ==
[~2019-12-09] VITALS: Ht 154.9 cm; Wt 53.0 kg
--- OUTSIDE RECORDS SUMMARY | ~2019-12-09 | XMS | Encounter Summary ---
Demographics + + + | Address | [address] | | | [place] [address] | + + + | Home Phone | | + + + | Preferred Language | Unknown | + + + | Marital Status | | + + + | Denominational Affiliation | Unknown | + + + | Race | White | + + + | Ethnic Group | Not or | + + + Author + + + | Author | [facility] | | | and [place] | + + + | Organization | [facility] | | | and [place] | + + + | Address | Unknown | + + + | Phone | Unavailable | + + + Support + + +---------+ + | Name | Relationship | Address | Phone | + + +---------+ + | Briseida Guerrero | ECON | Unknown | | + + +---------+ + Care Team Providers + +------+ + | Care Snowmobile Mechanic Name | Role | Phone | + +------+ + | Jaz Desir | PCP | | | PA-C | | | + +------+ + Reason for Visit +---------+--------+ + | Reason | Onset | Comments | | | Date | | +---------+--------+ + | Results | 10/26/ | | | | 2020 | | +---------+--------+ + Encounter Details +--------+ + + + + | Date | Type | Department | Care Team | Description | +--------+ + + + + | 10/26/ | Telephone | [facility] | Mariah Ogden Jo | Results | | 2020 | | [facility] | L, Curer [employer]am [employer]ber | | | | | CARE [address] | | | | | | [place] | | | | | | [address] | | | | | | [phone] | | | +--------+ + + + + Social History + +-------+ +--------+------+ | Tobacco Use | Types | Packs/Day | Years | Date | | | | | Used | | + +-------+ +--------+------+ | Never Smoker | | | | | + +-------+ +--------+------+ + +---+---+---+ | Smokeless Tobacco: | | | | | Never Used | | | | + +---+---+---+ + + +---------+ + | Alcohol Use | Drinks/Week | oz/Week | Comments | + + +---------+ + | Yes | | | 1 beer every 2-3 | | | | | month | + + +---------+ + + + + + | Alcohol Habits | Answer | Date Recorded | + + + + | How often do you have a drink containing | Monthly or less | 04/15/2019 | | alcohol? | | | + + + + | How many drinks containing alcohol do you | 1 or 2 | 04/15/2019 | | have on a typical day when you are | | | | drinking? | | | + + + + | How often do you have six or more drinks on | Never | 04/15/2019 | | one occasion? | | | + + + + + + + | Sex Assigned at | Date Recorded | | | | + + + | Not on file | | + + + documented as of this encounter Miscellaneous Notes Telephone Encounter - Mariah Ogden, Curer Foam [employer]ber - 10/27/2019 10:54 AM PDTFormat ting of this note might be different from the original. Reason For Call: RESULTS Called patient and left message to call us back. When patient calls back please notify of the following results: COVID-19 testing as of: 10:54 AM PDT 10/27/2019 Lab Results Component Value Date/Time COVID19 Not Detected 10/25/2019 07:31 AM [facility] umented in this encounter Plan of Treatment +--------+ + + + + | Date | Type | Specialty | Care Team | Description | +--------+ + + + + | 12/10/ | Procedure | Cardiology | Alexander Darnell, | | 2019 | visit | | MD [address] | | | | | | [place] | | | | | | [place] [address] | | | | | | [phone] | | | | | | | | +--------+ + + + + | 03/18/ | Office | Cardiology | Ana Cross | | | 2020 | Visit | | [address] | | | | | | [address] [place] | | | | | | [place] [address] | | | | | | [phone] | | | | | | | | +--------+ + + + + documented as of this encounter Visit Diagnoses Not on filedocumented in this encounter"
--- OUTSIDE RECORDS SUMMARY | ~2019-12-09 | XMS | Encounter Summary ---
Demographics + + + | Address | [address] | | | [place] [address] | + + + | Home Phone | | + + + | Preferred Language | Unknown | + + + | Marital Status | | + + + | Church Affiliation | Unknown | + + + | Race | White | + + + | Ethnic Group | Not or | + + + Author + + + | Author | [facility] | | | and [place] | + + + | Organization | [facility] | | | and [...] Team Providers + +------+ + | Care Jewel Oliving Machine Operator Name | Role | Phone | + +------+ + | Jaz Desir | PCP | | | PA-C | | | + +------+ + Encounter Details +--------+ + + + + | Date | Type | Department | Care Team | Description | +--------+ + + + + | 10/29/ | [facility] | [facility] | Aries Steve | | | 2019 | Encounter | MED CTR OR [facility] | MD [address] | | | | | [address] | [place] | | | | | [place] | [address] | | | | | [address] | | | | | | [phone] | | | +--------+ + + + [...] + + documented as of this encounter Last Filed Vital Signs + + + + + | Vital Sign | Reading | Time Taken | Comments | + + + + + | Blood Pressure | 141/77 | 10/30/2019 12:20 PM | | | | | PDT | | + + + + + | Pulse | 70 | 10/30/2019 12:20 PM | | | | | PDT | | + + + + + | Temperature | 36.4 C (97.5 F) | 10/30/2019 12:01 PM | | | | | PDT | | + + + + + | Respiratory Rate | 16 | 10/30/2019 12:01 PM | | | | | PDT | | + + + + + | Oxygen Saturation | 95% | 10/30/2019 12:20 PM | | | | | PDT | | + + + + + | Inhaled Oxygen | - | - | | | Concentration | | | | + + + + + | Weight | 51.7 kg (114 lb) | 10/30/2019 9:15 AM | | | | | PDT | | + + + + + | Height | 152.4 cm (5') | 10/30/2019 9:15 AM | | | | | PDT | | + + + + + | Body Mass Index | 22.26 | 10/30/2019 9:15 AM | | | | | PDT | | + + + + + documented in this encounter Discharge Instructions Instructions Aries Steve MD - 10/30/2019 INSTRUCTIONS FOR AFTER YOUR CATARACT SURGERY 1. Your doctor will tell you when to remove your patch and when to use drops if t hey are needed. Expect your vision may be blurry and that your eye may be red and/or puffy. You may experience some double vision. You may take Tylenol or Ibuprofen the night of surger y if you experience some discomfort or pain. 2. No heavy lifting (25 pound maximum), no strenuous activity, no bending over, a nd no eye makeup for one week. Avoid eye rubbing. 3. Expect a small amount of irritation and itching in the eye, especially during the first week after surgery. If you experience significant pain or decreasing vision, plehortencia e call the office immediately. If this is after normal business hours, tell the answering se karena that you recently had cataract surgery and need to speak with the doctor. 4. There are no limitations on walking, reading, watching TV, working on the [employer] uter, shaving, bathing, or shampooing your hair. Do take care to avoid getting dirty water i n your eye though. 5. We suggest using sunglasses when you are outside. You may use your current gla sses or readers for reading. 6. Eye drops are sometimes needed after surgery. If instructed to use them, pleas e do so to ensure proper healing. Do not discontinue drops until directed by the doctor. If you are running out, call our office or your pharmacy for a refill. 7. If you have any questions or concerns at all, please call our office at . YOUR APPOINTMENT WITH YOUR SURGEON TOMORROW. Please bring your surgery kit and all drops to each follow-up appointment, including other eye drops you may be taking. MD Ada Carrion MD Daniel Hanson, MD David A. Lewis, M D [address] | [place] [address] | P: [phone] | F: [phone] | [place] documented in this encounter Medications at Time of Discharge + + + +---------+ + + | Medication | Sig | Dispensed | Refills | Start | End Date | | | | | | Date | | + + + +---------+ + + | Albuterol Sulfate | Inhale 2 puffs into | | 0 | | | | (VENTOLIN HFA IN) | the lungs as needed. | | | | | + + + +---------+ + + | | Inhale 1 puff into | | 0 | | | | fluticasone-salmeter | the lungs 2 times | | | | | | ol (ADVAIRZAIDELA | daily. | | | | | | INHUB) 250-50 | | | | | | | mcg/puff diskus | | | | | | | inhaler | | | | | | + + + +---------+ + + | gabapentin | Take 300 mg by mouth | | 0 | | | | (NEURONTIN) 300 mg | 2 times daily . | | | | | | capsule | | | | | | + + + +---------+ + + | potassium chloride | Take 20 mEq by mouth | | 0 | | | | (KLOR-CON) 10 MEQ | 2 times daily . | | | | | | ER tablet | | | | | | + + + +---------+ + + | aspirin 325 MG EC | Take 1 tablet by | 360 | 0 | 08/28/19 | | | tablet | mouth Daily. | tablet | | 20 | 0 | + + + +---------+ + + | dilTIAZem | Take 1 capsule by | 30 | 11 | 04/14/19 | | | (CARDIZEM CD) 180 mg | mouth Daily. | capsule | | 20 | 0 | | 24 hr capsule | | | | | | + + + +---------+ + + documented as of this encounter H&P Notes Aries Steve MD - 10/30/2019 10:57 AM PDTSURGICAL INTERIM HISTORY & PHYSICAL UPDATE Pt. Name/Age/: Kae Jeter 84 y.o. 1935 Date of admission: 10/30/2019 The current H&P was reviewed. The patient was reexamined. Re-evaluation of the patient co nfirms the necessity for the scheduled procedure. No change has occurred in the patient s condition since the H&P was completed less than 30 days ago. VERIFICATION OF CONSENT (PARQ) The patient was counseled regarding the procedure, its indications, risks, potential compli cations and alternatives. Any questions were answered. Consent was obtained. Electronically signed by: Aries Steve MD, 10/30/2019 10:57 AM PDT [facility] Electronically signed by Aries Steve MD at 0 10/30/2019 10:57 AM PDTEdwardsAries MD - 10/27/2019 9:28 AM PDTPROVIDENCE [address] [address] HISTORY AND PHYSICAL ARIES STEVE MD Patient: KAE JETER Admitting: ARIES STEVE MR #: [id number] LOC: PT TYPE: Adm Date: 10/30/2019 : 1935 PREOPERATIVE HISTORY AND PHYSICAL DATE OF PROCEDURE: 10/30/2019 CHIEF COMPLAINT: Poor vision. HISTORY OF PRESENT ILLNESS: Kae is an 84-year-old female, who is reporting blurry vis ion in her right eye. She is having difficulty seeing to drive, read, and recognize people when they are close to her and care for herself due to her vision. She notes glare halos an d rings around lights. She desires improved visual acuity and wants cataract extraction fro m her right eye. PAST MEDICAL HISTORY: Arthritis, asthma, GERD, hypertension, history of shingles. FAMILY HISTORY: Hypertension, arthritis, and cancer. SOCIAL HISTORY: Drinks alcohol socially. Denies tobacco and recreational drug use. SURGICAL HISTORY: Stomach ulcer, fractured femur repair, left forearm surgery, cholecystec bri, and cataract surgery of the left eye. REVIEW OF SYSTEMS: A 13-point review of systems positive for irregular heartbeat, dry mout h, postnasal drip, asthma, arthritis, back pain, easy bruising, and seasonal allergies. MEDICATIONS: Chlorthalidone. Diltiazem. Advair. Gabapentin. Potassium chloride. ALLERGIES: AMLODIPINE, METHYLDOPA, BEE VENOM, AND VALTREX. PHYSICAL EXAMINATION: VITAL SIGNS: Blood pressure 127/83 with a pulse of 69. GENERAL: Oriented to time, place and person. Mood and affect appropriate. Well-developed , well-nourished. HEENT: Normocephalic, atraumatic. Best corrected visual acuity of the right eye is 20/60, with glare testing drops unable to see chart. Visual vann are full to finger counting bi laterally. Extraocular motility is full bilaterally. Pupils are equally round and reactive to light with no afferent pupillary defect. 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 Anterior chambers deep and q uiet. Iris is normal. There is 3-4+ nuclear sclerosis, vacuoles including centrally, corti toni changes, and 2+ oil droplet changes to the lens of the right eye. Posterior segment exa m shows a somewhat suspicious appearing optic nerve with a cup-to-disc ratio was 0.65. The retina is grossly normal in appearance. There is a vitreous floater. HEART: Irregularly irregular rhythm. At the time of auscultation, regular rate. LUNGS: Clear to auscultation bilaterally. ADMITTING IMPRESSION: Visually significant cataract of the right eye. PLAN: Extracapsular cataract extraction using phacoemulsification, intraocular lens implan t, right eye. This is to be done under monitored anesthesia care and supplemented by retrob ulbar block. The patient got clearance from cardiology to proceed, after she was assessed d ue to her irregular heart rhythm when she was here for her exam, so we will proceed as plann ed. ARIES STEVE MD Dictated by ARIES STEVE MD 10/27/2019 09:28:02 Transcribed on 10/27/2019 10:30:57 by mikel job# [id number] Confirmation #: [id number] signed by Aries Steve MD at 10/30/2019 10:56 AM PDTdocumented in this encounter Miscellaneous Notes Op Note - Aries Steve MD - 10/30/2019 12:00 PM PDTDATE OF PROCEDURE: 10/30/2019 PREOPERATIVE DIAGNOSIS: Visually significant cataract of the right eye. POSTOPERATIVE DIAGNOSIS: Visually significant cataract of the right eye. NAME OF PROCEDURE: Extracapsular cataract extraction using phacoemulsification and implant ation of an intraocular lens, right eye. SURGEON: Aries tSeve MD ANESTHESIA: MAC with retrobulbar block ESTIMATED BLOOD LOSS: Minimal COMPLICATIONS: None SUMMARY OF PROCEDURE: Risks, benefits, and alternatives were discussed with the patient, wh o wished to proceed with cataract surgery. Informed consent was freely obtained prior to pro ceeding. The patient was taken to the operating room where anesthesia was initiated without complica tion. The patient was then prepped and draped in the usual sterile ophthalmic fashion and a microscope brought into position and adjusted. Initially a paracentesis incision was made, a nd the anterior chamber of the eye was filled with Viscoat. Next, a guarded blade was used t o make an incision 0.35 mm deep and perpendicular to the corneal surface along the temporal clear cornea. A keratome was then used to tunnel into the cornea and then angle down to ent er the anterior chamber of the eye, forming a triplanar incision. A cystotome was then used to initiate a rhexis, which was completed in a continuous curvilinear fashion using capsulor rhexis forceps. Using a hydrodissection canula, the lens nucleus was then hydrodissected fro m the surrounding capsule. A phacoemulsification handpiece was then used to remove the lens nucleus using a 2-handed technique with a Stacey lens chopper. The total cumulative dispers tito energy was 14.38. An irrigation and aspiration handpiece was then used to remove the pipe s cortex, and then the capsular bag was gently polished. Provisc was then used to inflate th e capsular bag, and a PCB00 lens with a power of 22.0 diopters was inserted into the capsula r bag and adjusted using a Sinskey hook. The irrigation and aspiration handpiece was then u sed to remove the Provisc. Balanced salt solution was then used to adjust the volume and pre ssure of the eye until it was at an appropriate level. Vigamox was instilled into the anteri or chamber of the eye (approximately 0.2mL) and more to hydrate the wound edges to act as a depot antibiotic. Weck sponges were then used to confirm that these incisions were watertigh t. After confirming that they were watertight, a subconjunctival injection of 0.3 mL of Balaji alog-10 was administered, the patient was undraped, anesthesia was reversed, and a patch was applied to the eye. The patient was taken to the recovery area in stable condition, where p ostop instructions and followup instructions were given. documented in this encounter Plan of Treatment +--------+ + + + + | Date | Type | Specialty | Care Team | Description | +--------+ + + + + | 12/10/ | Procedure | Cardiology | Alexander Darnell, | | | 2019 | visit | | [address] | | | | | | [place] | | | | | | [place] [address] | | | | | | [phone] | | | | | | | | +--------+ + + + + | 03/18/ | Office | Cardiology | Ana Cross | | | 2020 | Visit | | [address] | | | | | | [address] | | | | | | [place] [address] | | | | | | [phone] | | | | | | | | +--------+ + + + + documented as of this encounter Procedures + +--------+ + + + | Procedure Name | Priori | Date/Time | Associated Diagnosis | Comments | | | ty | | | | + +--------+ + + + | EXTRACTION CATARACT | | 10/30/2019 | Age-related | | | W/ OR W/O LENS | | 11:27 AM | nuclear cataract, | | | IMPLANT | | PDT | right eye | | + +--------+ + + + documented in this encounter Visit Diagnoses Not on filedocumented in this encounter Administered Medications + +--------+---------+------+------+------+ | Medication Order | MAR | Action | Dose | Rate | Site | | | Action | Date | | | | + +--------+---------+------+------+------+ + +---+ | acetaminophen (TYLENOL) tablet | | | 325-650 mg 325-650 mg, Oral, | | | EVERY 4 HOURS PRN, Pain, Starting | | | Jackie 10/30/19 at 1157, | | | Post-op/Phase II | | + +---+ | | | + +---+ | albuterol 2.5 mg/3 mL nebulizer | | | solution 2.5 mg 2.5 mg, | | | Nebulization, ONCE PRN, Wheezing, | | | Starting Jackie 10/30/19 at 1157, | | | For 1 dose, Notify anesthesia if | | | patient is wheezing and does not | | | have a history of asthma or COPD | | | or current smoking., | | | Recovery/Phase I | | + +---+ | | | + +---+ + +-------+ +--------+---+---+ | apraclonidine (IOPIDINE) 1% | Given | 10/30/19 | 1 drop | | | | ophthalmic solution 1 drop 1 | | 20 9:46 | | | | | drop, Right Eye, EVERY 10 MIN, | | AM PDT | | | | | First dose on Sun10/30/19 at | | | | | | | 0945, For 2 doses, Pre-op | | | | | | + +-------+ +--------+---+---+ +-------+ +--------+---+---+ | Given | 10/30/19 | 1 drop | | | | | 20 9:28 | | | | | | AM PDT | | | | +-------+ +--------+---+---+ +---+---+ | | | +---+---+ + +-------+ +--------+---+---+ | cyclopentolate (CYCLOGYL) 1% | Given | 10/30/19 | 1 drop | | | | ophthalmic solution 1 drop 1 | | 20 9:54 | | | | | drop, Right Eye, EVERY 10 MIN | | AM PDT | | | | | PRN, prep eye for procedure, | | | | | | | Starting Sun10/30/19 at 0916, For | | | | | | | 3 doses, Only give 3rd dose 10 | | | | | | | minutes later if pupil is not | | | | | | | dilated at least 6mm, Pre-op | | | | | | + +-------+ +--------+---+---+ +-------+ +--------+---+---+ | Given | 10/30/19 | 1 drop | | | | | 20 9:45 | | | | | | AM PDT | | | | +-------+ +--------+---+---+ | Given | 10/30/19 | 1 drop | | | | | 20 9:26 | | | | | | AM PDT | | | | +-------+ +--------+---+---+ + +---+ | | | + +---+ | dextrose 50% injection 12.5-25 | | | g 12.5-25 g, Intravenous, EVERY | | | 15 MIN PRN, Low Blood Sugar, Give | | | 12.5g (25 mL) IV if blood | | | glucose 50-69 mg/dL. Give 25g | | | (50 mL) IV if blood glucose < 50, | | | Starting [facility] 10/30/19 at 0916, | | | Repeat in 15 min if blood glucose | | | remains < 70 mg/dL. Repeat | | | blood glucose in 30 min once | | | blood glucose > 70., Pre-op | | + +---+ | | | + +---+ | dextrose 50% injection 12.5-25 | | | g 12.5-25 g, Intravenous, EVERY | | | 15 MIN PRN, Low Blood Sugar, For | | | hypoglycemia. Give 12.5g (25ml) | | | IV if blood glucose 50-69 | | | mg/dL. Give 25g (50ml) IV if | | | blood glucose < 50, Starting Jackie | | | 10/30/19 at 1157, Give over 2 min. | | | Repeat in 15 min if blood | | | glucose remains < 70 mg/dL. | | | Repeat blood glucose in 30 min | | | once blood glucose > 70., | | | Recovery/Phase I | | + +---+ | | | + +---+ + +-------+ +--------+---+---+ | flurbiprofen (OCUFEN) 0.03% | Given | 10/30/19 | 1 drop | | | | ophthalmic solution 1 drop 1 | | 20 9:45 | | | | | drop, Right Eye, EVERY 10 MIN, | | AM PDT | | | | | First dose on Jackie 10/30/19 at | | | | | | | 0945, For 2 doses, Pre-op | | | | | | + +-------+ +--------+---+---+ +-------+ +--------+---+---+ | Given | 10/30/19 | 1 drop | | | | | 20 9:26 | | | | | | AM PDT | | | | +-------+ +--------+---+---+ +---+---+ | | | +---+---+ + +---------+ +---+---+---+ | lactated ringers (LR) infusion | New Bag | 10/30/19 | | | | | at 10-100 mL/hr, Intravenous, | | 20 11:32 | | | | | CONTINUOUS, Starting Jackie 10/30/19 | | AM PDT | | | | | at 0945, TKO., Pre-op | | | | | | + +---------+ +---+---+---+ + +---+ | | | + +---+ | ondansetron (ZOFRAN) injection | | | 4 mg 4 mg, Intravenous, EVERY 4 | | | HOURS PRN, Nausea, Vomiting, | | | Starting Jackie 10/30/19 at 1157, | | | Recovery/Phase I | | + +---+ | | | + +---+ | oxyCODONE (ROXICODONE) tablet 5 | | | mg 5 mg, Oral, ONCE PRN, Pain, | | | Starting [facility] 10/30/19 at 1157, For | | | 1 dose, If able to take oral | | | medication., Recovery/Phase I | | + +---+ | | | + +---+ + +-------+ +--------+---+---+ | phenylephrine (SHAYLA-SYNEPHRINE) | Given | 10/30/19 | 1 drop | | | | 2.5% ophthalmic solution 1 drop | | 20 9:54 | | | | | 1 drop, Right Eye, EVERY 10 MIN | | AM PDT | | | | | PRN, prep eye for procedure, | | | | | | | Starting [facility] 10/30/19 at 0916, For | | | | | | | 3 doses, Only give 3rd dose 10 | | | | | | | minutes later if pupil is not | | | | | | | dilated at least 6mm, Pre-op | | | | | | + +-------+ +--------+---+---+ +-------+ +--------+---+---+ | Given | 10/30/19 | 1 drop | | | | | 20 9:45 | | | | | | AM PDT | | | | +-------+ +--------+---+---+ | Given | 10/30/19 | 1 drop | | | | | 20 9:26 | | | | | | AM PDT | | | | +-------+ +--------+---+---+ +---+---+ | | | +---+---+ + +-------+ +--------+---+---+ | proparacaine (ALCAINE) 0.5% | Given | 10/30/19 | 1 drop | | | | ophthalmic solution 1 drop 1 | | 20 9:54 | | | | | drop, Right Eye, EVERY 10 MIN | | AM PDT | | | | | PRN, prep eye for procedure, | | | | | | | Starting Jackie 10/30/19 at 0916, For | | | | | | | 3 doses, Only give 3rd dose 10 | | | | | | | minutes later if pupil is not | | | | | | | dilated at least 6mm, Pre-op | | | | | | + +-------+ +--------+---+---+ +-------+ +--------+---+---+ | Given | 10/30/19 | 1 drop | | | | | 20 9:45 | | | | | | AM PDT | | | | +-------+ +--------+---+---+ | Given | 10/30/19 | 1 drop | | | | | 20 9:26 | | | | | | AM PDT | | | | +-------+ +--------+---+---+ +---+---+ | | | +---+---+ + +-------+ +--------+---+---+ | tropicamide (MYDRIACYL) 1% | Given | 10/30/19 | 1 drop | | | | ophthalmic solution 1 drop 1 | | 20 9:54 | | | | | drop, Right Eye, EVERY 10 MIN | | AM PDT | | | | | PRN, prep eye for procedure, | | | | | | | Starting [facility] 10/30/19 at 0916, For | | | | | | | 3 doses, Only give 3rd dose 10 | | | | | | | minutes later if pupil is not | | | | | | | dilated at least 6mm, Pre-op | | | | | | + +-------+ +--------+---+---+ +-------+ +--------+---+---+ | Given | 10/30/19 | 1 drop | | | | | 20 9:45 | | | | | | AM PDT | | | | +-------+ +--------+---+---+ | Given | 10/30/19 | 1 drop | | | | | 20 9:26 | | | | | | AM PDT | | | | +-------+ +--------+---+---+ +---+---+ | | | +---+---+ documented in this encounter"
--- OUTSIDE RECORDS SUMMARY | ~2019-12-09 | XMS | Encounter Summary ---
Demographics + + + | Address | [address] | | | [place] [address] | + + + | Home Phone | | + + + | Preferred Language | Unknown | + + + | Marital Status | | + + + | Jain Affiliation | Unknown | + + + | Race | White | + + + | Ethnic Group | Not or | + + + Author + + + | Author | [facility] | | | and [place] | + + + | Organization | [facility] | | | [...] Team Providers + +------+ + | Care Knife Blade Polisher Name | Role | Phone | + +------+ + | Jaz Desir | PCP | | | PA-C | | | + +------+ + Reason for Visit + + + | Reason | Comments | + + + | Pre-op Exam | | + + + Encounter Details +--------+ + + + + | Date | Type | Department | Care Team | Description | +--------+ + + + + | 09/26/ | Clinical | [facility] | [facility], | Pre-op testing | | 2020 | Support | CARE [address] | Jaime Garcia MD | (Primary Dx) | | | | [place] | [address] | | | | | [address] | [place] | | | | | [phone] | [address] | | | | | | | [...] + + + | Blood Pressure | - | - | | + + + + + | Pulse | 104 | 09/27/2019 7:16 AM | | | | | PDT | | + + + + + | Temperature | 36.8 C (98.2 F) | 09/27/2019 7:16 AM | | | | | PDT | | + + + + + | Respiratory Rate | - | - | | + + + + + | Oxygen Saturation | 90% | 09/27/2019 7:16 AM | | | | | PDT | | + + + + + | Inhaled Oxygen | - | - | | | Concentration | | | | + + + + + | Weight | - | - | | + + + + + | Height | - | - | | + + + + + | Body Mass Index | - | - | | + + + + + documented in this encounter Progress Notes Stephy Vega RN - 09/27/2019 7:20 AM PDTPatient had low 02 at 90% and HR at 104. Zhang felipe is feeling well, asymptomatic. Advised to go in to be evaluated. Daughter and patient declined and only wanting covid swab for pre procedure. Stephy Vega RN Bettye Bradford Feed Preparation Operator - 09/27/2019 7:20 AM PDT.PRE-PROCEDURE COVID TEST (Asymptomatic Testing Only) Affix Patient Label [] Photo ID Verified Patient Name:Kae Jeter Provider:MATTIE MACIAS URGENT NURSE :1935 Date:09/27/19 MyChart: Pending Activation Symptom Screen: [] Patient identified as having at least one of the symptoms below: ? Cough, Shortness of Breath, Fever >100.4, Chills, Sore Throat, Body Aches or Muscle Pain, Headache, nausea, vomiting, diarrhea, change in smell and/or taste [] Patient is not symptomatic of symptoms consistent with COVID-19 Testing Protocol: MA/RN Proceed to testing if ANY of the following conditions are present: DRIVE THRU SWAB SCREENING [x] Asymptomatic, regardless of age, pre-procedure screening only [] Asymptomatic - testing requested by authorized [facility] personnel, [facility] Infection Prevention Nurse or Caregiver Health [] Asymptomatic, regardless of age, pre-travel screening only [] Asymptomatic, regardless of age, housing screening PROVIDER EVALUATION REQUIRED [] Patient identified as having symptoms associated with COVID-19, patient encouraged to notify their PCP or procedure ordering physician of symptoms. Discharge: [] Social Distancing/Quarantine Guidelines documented in this encounter Plan of Treatment [...] | | | | | | [place] [address] | | | | | | [phone] | | | | | | | | +--------+ + + + + | 03/18/ | Office | Cardiology | Ana Cross | | | 2020 | Visit | | [address] | | | | | | [address] | | | | | | [place] [address] | | | | | | [phone] | | | | | | | | +--------+ + + + + documented as of this encounter Procedures + +--------+ + + + | Procedure Name | Priori | Date/Time | Associated Diagnosis | Comments | | | ty | | | | + +--------+ + + + | CORONAVIRUS | Routin | 09/27/2019 | Pre-op testing | Results for this | | (COVID-19) NAAT | e | 7:17 AM | | procedure are in the | | | | PDT | | results section. | + +--------+ + + + documented in this encounter Results Coronavirus (COVID-19) NAAT (09/27/2019 7:17 AM PDT) + + + + + + | Component | Value | Ref Range | Performed | Pathologist | | | | | At | Signature | + + + + + + | SARS-CoV-2, | Not DetectedComment: | Not Detected | REFERENCE | | | NAAT | Testing was performed | | LAB [facility] | | | (COVID-19) | using the Aptima | | - [facility] | | | | SARS-CoV-2 assay.This | | | | | | test was developed and | | | | | | its performance | | | | | | characteristics | | | | | | determinedby [facility] | | | | | | Laboratories. This test | | | | | | has not been FDA cleared | | | | | | orapproved. This test | | | | | | has been authorized by | | | | | | FDA under an Emergency | | | | | | UseAuthorization (EUA). | | | | | | This test is only | | | | | | authorized for the | | | | | | duration oftime the | | | | | | declaration that | | | | | | circumstances exist | | | | | | justifying | | | | | | theauthorization of the | | | | | | emergency use of in | | | | | | vitro diagnostic tests | | | | | | fordetection of | | | | | | SARS-CoV-2 virus and/or | | | | | | diagnosis of COVID-19 | | | | | | infectionunder section | | | | | | 564(b)(1) of the Act, 21 | | | | | | U.S.C. 360bbb-3(b)(1), | | | | | | unlessthe authorization | | | | | | is terminated or revoked | | | | | | sooner.When diagnostic | | | | | | testing is negative, the | | | | | | possibility of a | | | | | | falsenegative result | | | | | | should be considered in | | | | | | the context of a | | | | | | patient'srecent | | | | | | exposures and the | | | | | | presence of clinical | | | | | | signs and | | | | | | symptomsconsistent with | | | | | | COVID-19. An individual | | | | | | without symptoms of | | | | | | COVID-19and who is not | | | | | | shedding SARS-CoV-2 | | | | | | virus would expect to | | | | | | have anegative (not | | | | | | detected) result in this | | | | | | assay. | | | | + + + + + + + + | Specimen | + + | Tissue - Specimen | | from throat | | (specimen) | + + + + + | Narrative | Performed At | + + + | Performed at: [address] [address], | REFERENCE LAB | | [place], [place] [id number] Glass Crusher: Geovany Yost MD, Phone: | [facility] [place] | | [phone] | | + + + + + + + + | Performing | Address | City/State/Zipcode | Phone Number | | Organization | | | | + + + + + | REFERENCE LAB | [address] | [place], [place] | [phone] | | [facility] | [address] [address] | [address] | | + + + + + documented in this encounter Visit Diagnoses + + | Diagnosis | + + | Pre-op testing - Primary Preoperative examination, unspecified | + + documented in this encounter Additional Health Concerns + + + + + | Infection | Onset Date | Last Indicated | Resolved Time | + + + + + | Rule out COVID-19 | 09/27/2019 | 09/27/2019 | 09/29/2019 1:05 AM | | | | | PDT | + + + + + documented as of this encounter"
--- OUTSIDE RECORDS SUMMARY | ~2019-12-09 | XMS | Encounter Summary ---
Demographics + + + | Address | [address] | | | [place] [address] | + + + | Home Phone | | + + + | Preferred Language | Unknown | + + + | Marital Status | | + + + | Gnosticism Affiliation | Unknown | + + + | Race | White | + + + | Ethnic Group | Not or | + + + Author + + + | Author | [facility] | | | and [place] | + + + | Organization | [facility] | | | [...] Team Providers + +------+ + | Care Glazier Metal Furniture Name | Role | Phone | + +------+ + | Jaz Desir | PCP | | | PA-C | | | + +------+ + Encounter Details +--------+ + + + + | Date | Type | Department | Care Team | Description | +--------+ + + + + | 10/29/ | [facility] | [facility] | Aries Steve | | | 2019 | Encounter | MED CTR OR INTRA OP | MD [address] | | | | | [address] | [place] | | | | | [place] | [address] | | | | | [address] | | | | | | [phone] | | | +--------+ + + + [...] walking, reading, watching TV, working on the Patreon uter, shaving, bathing, or shampooing your hair. [...] Lewis, M D [address] | [place] [address] | P: [phone] | F: [phone] | [employer] documented in this encounter Medications at Time [...] Steve MD, 10/30/2019 10:57 AM PDT [facility] Electronically signed by Aries Steve MD at 0 10/30/2019 10:57 AM PDTEdwardsAries MD - 10/27/2019 9:28 AM PDTPROVIDENCE [address] [address] HISTORY AND PHYSICAL ARIES STEVE MD Patient: KAE JETER Admitting: ARIES STEVE MR #: [id number] LOC: PT TYPE: Adm Date: 10/30/2019 : [...] Transcribed on 10/27/2019 10:30:57 by mikel job# [id number] Confirmation #: [id number] signed by Aries Steve MD at 10/30/2019 [...] an intraocular lens, right eye. SURGEON: Aries Stvee MD ANESTHESIA: MAC with retrobulbar block ESTIMATED [...] [place] | | | | | | [place] [address] | | | | | | [phone] | | | | | | | | +--------+ + + + + | 03/18/ | Office | Cardiology | Ana Cross | | | 2020 | Visit | | [address] | | | | | | [address] | | | | | | [place] [address] | | | | | | [phone] | | | | | | | [...] glucose < 50, | | | Starting [facility] 10/30/19 at 0916, | | | [...] ONCE PRN, Pain, | | | Starting [facility] 10/30/19 at 1157, For | | [...] | | | | | | Starting [facility] 10/30/19 at 0916, For | | [...] | | | | | | Starting [facility] 10/30/19 at 0916, For | | [...]
--- OUTSIDE RECORDS SUMMARY | ~2019-12-09 | XMS | Encounter Summary ---
Demographics + + + | Address | [address] [facility] | | | [place] [address] | + + + | Home Phone | | + + + | Preferred Language | Unknown | + + + | Marital Status | | + + + | Mosque Affiliation | Unknown | + + + | Race | White | + + + | Ethnic Group | Not or | + + + Author + + + | Author | [facility] | | | and [place] | + + + | Organization | [facility] | | | [...] Team Providers + +------+ + | Care Customer Care Manager Name | Role | Phone | + +------+ + | Jaz Desir | PCP | | | PA-C | | | + +------+ + Reason for Visit + +--------+ + | Reason | Onset | Comments | | | Date | | + +--------+ + | Medication Question | 10/28/ | | | | 2019 | | + +--------+ + Encounter Details +--------+ + + + + | Date | Type | Department | Care Team | Description | +--------+ + + + + | 10/28/ | Telephone | [facility] | Ana Cross | Medication Question | | 2019 | | CARDIOLOGY CLAIRE | [address] | | | | | [address] | | | | | [address] | [place] [address] | | | | | [address] | [phone] | | | | | [phone] | | | +--------+ + + + [...] this encounter Miscellaneous Notes Telephone Encounter - Kovatch, Elaine L, Air Antisubmarine Officer - 10/29/2019 1:45 PM PDTCalled and relayed message to pt daughter. No questions at this time. elephone Encounter - Elaine Grullon Air Antisubmarine Officer - 2019 1:29 PM PDTPt daughter called and is wondering if Kae is to continue taking 4 tab s of potassium or cut back to 2 tabs a day. Please advise. Thank you elephone Encounter - Elaine Grullon Medical Assistant - 10/29/2019 1:28 PM PDT ----- Message from MYLES Cooper sent at 10/16/2019 12:06 PM PDT ----- Regarding: labs Pauline, Please let her daughter Briseida know I saw her labs performed 10/15/2019, and they looked goo d with normal potassium and kidney function. Thanks MB doc umented in this encounter Plan of Treatment +--------+ + + + + | Date | Type | Specialty | Care Team | Description | +--------+ + + + + | 12/10/ | Procedure | Cardiology | Alexander Darnell, | | | 2019 | visit | | [address] | | | | | | [place], | | | | | | [place] [address] | | | | | | [phone] | | | | | | | | +--------+ + + + + | 03/18/ | Office | Cardiology | Ana Cross | | | 2020 | Visit | | [address] | | | | | | [address] | | | | | | [place] [address] | | | | | | [phone] | | | | | | | | +--------+ + + + + documented as of this encounter Visit Diagnoses Not on filedocumented in this encounter"
--- OUTSIDE RECORDS SUMMARY | ~2019-12-09 | XMS | Encounter Summary ---
Demographics + + + | Address | [address] | | | [place] [address] | + + + | Home Phone | | + + + | Preferred Language | Unknown | + + + | Marital Status | | + + + | Mosque Affiliation | Unknown | + + + | Race | White | + + + | Ethnic Group | Not or | + + + Author + + + | Author | [facility] | | | and [place] | + + + | Organization | [facility] | | | [...] Team Providers + +------+ + | Care Ux Developer Designer Name | Role | Phone | + [...] Clinical | [facility] | [facility], | Pre-op testing | | 2020 | Support | CARE [address] | Jaime Garcia MD | (Primary Dx) | | | | [place] | [address] | | | | | [address] | [place] | | | | | [phone] | [address] | | | | | | | [...] only wanting covid swab for pre procedure. Stpehy Vega RN Bettye Bradford Digital Media Sales Consultant - 09/27/2019 7:20 AM PDT.PRE-PROCEDURE COVID TEST [...] [] Asymptomatic - testing requested by authorized [facility] personnel, [facility] Infection Prevention Nurse or Caregiver Health [] [...] | | | | | | [place] [address] | | | | | | [phone] | | | | | | | | +--------+ + + + + | 03/18/ | Office | Cardiology | Ana Cross | | | 2020 | Visit | | [address] | | | | | | [address] | | | | | | [place] [address] | | | | | | [phone] | | | | | | | [...] + | Performed at: [address] - [address] [address], | REFERENCE LAB | | [place], [place] [id number] Associate Professor Of Physics: Geovany Yost MD, Phone: | [facility] [place] | | [phone] | | + + + + + + + + | Performing | Address | City/State/Zipcode | Phone Number | | Organization | | | | + + + + + | REFERENCE LAB | [address] | [place], [place] | [phone] | | [facility] | [address] | [address] | | + + + + + [...]
--- OUTSIDE RECORDS SUMMARY | ~2019-12-09 | XMS | Encounter Summary ---
Demographics + + + | Address | [address] | | | [place] [address] | + + + | Home Phone | | + + + | Preferred Language | Unknown | + + + | Marital Status | | + + + | Restoration Affiliation | Unknown | + + + | Race | White | + + + | Ethnic Group | Not or | + + + Author + + + | Author | [facility] | | | and [place] | + + + | Organization | [facility] | | [...] Team Providers + +------+ + | Care Home Health Scheduler Name | Role | Phone | + [...] + + | 10/28/ | Telephone | [facility] | Ana Cross | Medication Question | | 2019 | | CARDIOLOGY CLAIRE | [address] | | | | | [address] | [address] | | | | | [address] | [place] [address] | | | | | [address] | [phone] | | | | | [phone] | | | +--------+ + + + [...] Notes Telephone Encounter - Kovatch, Elaine L, Fleet Maintenance Manager - 10/29/2019 1:45 PM PDTCalled and relayed message to pt daughter. No questions at this time. elephone Encounter - Elaine Grullon Fleet Maintenance Manager - 2019 1:29 PM PDTPt daughter called [...] | | | | | | [place] [address] | | | | | | [phone] | | | | | | | | +--------+ + + + + | 03/18/ | Office | Cardiology | Ana Cross | | | 2020 | Visit | | [address] | | | | | | [address] | | | | | | [place] [address] | | | | | | [phone] | | | | | | | | +--------+ + + + + documented as of this encounter Visit Diagnoses Not on filedocumented in this encounter"
--- OUTSIDE RECORDS SUMMARY | ~2019-12-09 | XMS | Encounter Summary ---
Demographics + + + | Address | [address] | | | [place] [address] | + + + | Home Phone | | + + + | Preferred Language | Unknown | + + + | Marital Status | | + + + | Catholic Affiliation | Unknown | + + + | Race | White | + + + | Ethnic Group | Not or | + + + Author + + + | Author | [facility] | | | and [place] | + + + | Organization | [facility] | | | [...] Team Providers + +------+ + | Care Site Safety Manager Name | Role | Phone | + +------+ + | Jaz Desir | PCP | | | PA-C | | | + +------+ + Encounter Details +--------+ + + + + | Date | Type | Department | Care Team | Description | +--------+ + + + + | 09/07/ | Orders Only | [facility] | Jason Steve, | Nuclear sclerotic | | 2019 | | MED CTR PROVIDER | [address] | cataract of right | | | | SURGICAL [address] | [place], [place] | eye (Primary Dx) | | | | [place], | [address] | | | | | [place] [address] | | | | | | [phone] | | | +--------+ + + + [...] + + documented as of this encounter Plan of Treatment +--------+ + + + + | Date | Type | Specialty | Care Team | Description | +--------+ + + + + | 12/10/ | Procedure | Cardiology | Alexander Darnell, | | | 2019 | visit | | [address] | | | | | | [place], | | | | | | [place] [address] | | | | | | [phone] | | | | | | | | +--------+ + + + + | 03/18/ | Office | Cardiology | Ana Cross | | | 2020 | Visit | | [address] | | | | | | [address] | | | | | | [place] [address] | | | | | | [phone] | | | | | | | | +--------+ + + + + documented as of this encounter Visit Diagnoses + + | Diagnosis | + + | 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
--- OUTSIDE RECORDS SUMMARY | ~2019-12-09 | XMS | Encounter Summary ---
Demographics + + + | Address | [address] | | | [place] [address] | + + + | Home Phone | | + + + | Preferred Language | Unknown | + + + | Marital Status | | + + + | Restoration Affiliation | Unknown | + + + | Race | White | + + + | Ethnic Group | Not or | + + + Author + + + | Author | [facility] | | | and [place] | + + + | Organization | [facility] | | | and [...] Team Providers + +------+ + | Care Director Of Global Sales Name | Role | Phone | + +------+ + | Jaz Desir | PCP | | | PA-C | | | + +------+ + Reason for Visit +--------+ + | Reason | Comments | +--------+ + | Other | 14 day event monitor | +--------+ + Encounter Details +--------+ + + + + | Date | Type | Department | Care Team | Description | +--------+ + + + + | 09/03/ | Procedure | [facility] | Ana Cross | Tachycardia; First | | 2019 | visit | CARDIOLOGY [place] | [address] | degree AV block; | | | | [address] | [address] | Premature atrial | | | | [address] | [place] [address] | contractions; | | | | [place] | [phone] | Palpitations | | | | [address] | | | | | | [phone] | | | +--------+ + + + [...] + + documented as of this encounter Progress Notes Daniella Akbar CMA - 09/04/2019 10:30 AM PDT14 day cardiac event monitor placed on [facility] nt. EOB/Billing information discussed. Instructions given and understood.Electronically sign ed by Daniella Akbar CMA at 09/04/2019 10:41 AM PDTdocumented in this encounter Plan of Treatment +--------+ + + + + | Date | Type | Specialty | Care Team | Description | +--------+ + + + + | 12/10/ | Procedure | Cardiology | Alexander Darnell, | | 2019 | visit | | MD [address] | | | | | | [place] | | | | | | [place] [address] | | | | | | [phone] | | | | | | | | +--------+ + + + + | 03/18/ | Office | Cardiology | Ana Cross | | | 2020 | Visit | | [address] | | | | | | [address] | | | | | | [place] [address] | | | | | | [phone] | | | | | | | | +--------+ + + + + documented as of this encounter Visit Diagnoses + + | Diagnosis | + + | Tachycardia Tachycardia, unspecified | + + | First degree AV block First degree atrioventricular block | + + | Premature atrial contractions Supraventricular premature beats | + + | Palpitations | + + documented in this encounter"
--- OUTSIDE RECORDS SUMMARY | ~2019-12-09 | XMS | Encounter Summary ---
Demographics + + + | Address | [address] [facility] | | | [place] [address] | + + + | Home Phone | | + + + | Preferred Language | Unknown | + + + | Marital Status | | + + + | Catholic Affiliation | Unknown | + + + | Race | White | + + + | Ethnic Group | Not or | + + + Author + + + | Author | [facility] | | | and [place] | + + + | Organization | [facility] | | [...] Team Providers + +------+ + | Care Souvenir Assembler Name | Role | Phone | + [...] eye (Primary Dx) | | | | [place], | [address] | | | | | [place] [address] | | | | | | [phone] | | | +--------+ + + + [...] [place], | | | | | | [place] [address] | | | | | | [phone] | | | | | | | | +--------+ + + + + | 03/18/ | Office | Cardiology | Ana Cross | | | 2020 | Visit | | [address] | | | | | | [address] | | | | | | [place] [address] | | | | | | [phone] | | | | | | | | +--------+ + + + + documented as of this encounter Visit Diagnoses + + | Diagnosis | + + | 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
--- OUTSIDE RECORDS SUMMARY | ~2019-12-09 | XMS | Encounter Summary ---
Demographics + + + | Address | [address] | | | [place] [address] | + + + | Home Phone | | + + + | Preferred Language | Unknown | + + + | Marital Status | | + + + | Restorationist Affiliation | Unknown | + + + | Race | White | + + + | Ethnic Group | Not or | + + + Author + + + | Author | [facility] | | | and [place] | + + + | Organization | [facility] | | | and [place] | + + + | Address | Unknown | + + + | Phone | Unavailable | + + + Support + + +---------+ + | Name | Relationship | Address | Phone | + + +---------+ + | Briseida Guererro | ECON | Unknown | | + + +---------+ + Care Team Providers + +------+ + | Care Ceo Name | Role | Phone | + +------+ + | Jaz Desir | PCP | | | PA-C | | | + +------+ + Encounter Details +--------+ + + + + | Date | Type | Department | Care Team | Description | +--------+ + + + + | 12/30/ | Transcribed | [facility] | Jaz Desir | Atrial fibrillation, | | 2019 | Orders | CARDIOLOGY [place] | CAROL Beckham | unspecified type | | | | [address] | [address] | ([facility]) (Primary Dx) | | | | [place] | [place], [place] | | | | | [address] | [address] | | | | | [phone] | [phone] | | | | | | | | +--------+ + + + + Social History + +-------+ +--------+------+ | Tobacco Use | Types | Packs/Day | Years | Date | | | | | Used | | + +-------+ +--------+------+ | Never Assessed | | | | | + +-------+ +--------+------+ + + + | Sex Assigned at [...] | | | | | | [place] [address] | | | | | | [phone] | | | | | | | | +--------+ + + + + | 03/18/ | Office | Cardiology | Ana Cross | | | 2020 | Visit | | [address] | | | | | | [address] | | | | | | [place] [address] | | | | | | [phone] | | | | | | | | +--------+ + + + + + +------+--------+ + + | Name | Type | Priori | Associated Diagnoses | Order Schedule | | | | ty | | | + +------+--------+ + + | Event monitor - 2 | ECG | Routin | Atrial | 1 Occurrences | | week | | e | fibrillation, | starting 12/30/2018 | | | | | unspecified type | until 12/31/2019 | | | | | (HCC) | | + +------+--------+ + + documented as of this encounter Visit Diagnoses + + | Diagnosis | + + | Atrial fibrillation, unspecified type (HCC) - Primary | + + documented in this encounter"
--- OUTSIDE RECORDS SUMMARY | ~2019-12-09 | XMS | Encounter Summary ---
Demographics + + + | Address | [address] | | | [place] [address] | + + + | Home Phone | | + + + | Preferred Language | Unknown | + + + | Marital Status | | + + + | Judaism Affiliation | Unknown | + + + | Race | White | + + + | Ethnic Group | Not or | + + + Author + + + | Author | [facility] | | | and [place] | + + + | Organization | [facility] | | [...] Team Providers + +------+ + | Care Avionics Repair Technician Name | Role | Phone | + [...] + + + + | 09/07/ | Documentati | [facility] | Hermelinda Mcgovern, | Other (urgent | | 2020 | on | CARDIOLOGY [place] | Technologist | report) | | | | [address] | | | | | | [place], [place] | | | | | | [address] | | | | | | [phone] | | | +--------+ + + + [...] documented as of this encounter Progress Notes Hermelinda Mcgovern, Technologist - 09/08/2019 8:28 AM PDTReceived urgent report 09/08/19 Pt had a urgent report 09/08/19 st 00:04 for possible 2nd degree AV Block with 2:1 conductio n < 40 BPM 14 day monitor was placed 09/04/19 Medication: aspirin 325 MG EC tablet digoxin (LANOXIN) 125 mcg tablet dilTIAZem (CARDIZEM CD) 180 mg 24 hr capsule Called Pt left message with her daughter Will continue to monitor Please see attachment Associated attestation - Martín Auguste MD - 09/09/2019 12:30 PM PDTEvidence of significant bradycardia and second-degree AV block. I recommend to stop digoxin. documented in this encounter Plan of Treatment [...] | | | | | | [place] [address] | | | | | | [phone] | | | | | | | | +--------+ + + + + | 03/18/ | Office | Cardiology | Ana Cross | | | 2020 | Visit | | MY[address] Espinoza [address] | | | | | | [address] | | | | | | [place] [address] | | | | | | [phone] | | | | | | | | +--------+ + + + + documented as of this encounter Visit Diagnoses Not on filedocumented in this encounter"
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
--- OUTSIDE RECORDS SUMMARY | ~2019-12-09 | XMS | Encounter Summary ---
Demographics + + + | Address | [address] | | | [place] [address] | + + + | Home Phone | | + + + | Preferred Language | Unknown | + + + | Marital Status | | + + + | Tenriism Affiliation | Unknown | + + + | Race | White | + + + | Ethnic Group | Not or | + + + Author + + + | Author | [facility] | | | and [place] | + + + | Organization | [facility] | | | [...] Team Providers + +------+ + | Care Furnace Clerk Name | Role | Phone | + +------+ + | Jaz Desir | PCP | | | PA-C | | | + +------+ + Reason for Visit +--------+ + | Reason | Comments | +--------+ + | Other | end of study | +--------+ + Encounter Details +--------+ + + + + | Date | Type | Department | Care Team | Description | +--------+ + + + + | 02/06/ | Documentati | [facility] | Hermelinda Mcgovern, | Other (end of study) | | 2019 | on | [facility]ARDI[facility]Y [place] | Technologist | | | | | [address] | | | | | [facility] [place] | | | | | | [address] | | | | | | [phone] | | | +--------+ + + + [...] encounter Progress Notes Hermelinda Mcgovern, Technologist - 02/06/2019 11:59 PM PST Cardiac Remote Sensing Surveyor Date of Event Monitor: 02/06/19 Referring Physician: No Patient:Kae Jeter : 1935 Age: 83 y.o. female INDICATIONS: Unspecified atrial fibrillation Procedure: Continuous ambulatory ECG for the duration of 13 days and 21 hours. During this recording, the underlying rhythm is in his rhythm the lowest heart rate was 64 BPM, the hig hest heart rate 158 BPM, averaging 97 BPM. During this recording interval, 4.89% PACs were recorded; there were no episodes of supraventricular tachycardia. Also, there were 0.24% PV Cs were recorded; there were 2 episodes of nonsustained ventricular tachycardia the longest and fastest of which was 6 beats at 194 bpm. There were 579 episodes of missed beats observ ed. The heart rate trends did demonstrate a normal circadian pattern. In the patient's diar y, no symptoms were reported. Impressions: 1: Sinus rhythm as described above. 2: Atrial and ventricular ectopy as above. No atrial fibrillation was identified. 3: There were 579 episodes of missed beats which occurred primarily at night. 4: No entries in Patient Diary. Recomendations: Clinical correlation suggested. Inga Phelps DO documented in this enco unter Plan of Treatment +--------+ + + + + | Date | Type | Specialty | Care Team | Description | +--------+ + + + + | 12/10/ | Procedure | Cardiology | Alexander Darnell, | | | 2019 | visit | | [address] | | | | | | [address] | | | | | | [place] [address] | | | | | | [phone] | | | | | | | | +--------+ + + + + | 03/18/ | Office | Cardiology | [facility] | | | 2020 | Visit | | [address] | | | | | | [address] | | | | | | [place] [address] | | | | | | [phone] | | | | | | | | +--------+ + + + + documented as of this encounter Visit Diagnoses + + | Diagnosis | + + | Atrial fibrillation, unspecified type (HCC) | + + documented in this encounter"
--- OUTSIDE RECORDS SUMMARY | ~2019-12-09 | XMS | Encounter Summary ---
Demographics + + + | Address | [address] | | | [place] [address] | + + + | Home Phone | | + + + | Preferred Language | Unknown | + + + | Marital Status | | + + + | Restorationism Affiliation | Unknown | + + + | Race | White | + + + | Ethnic Group | Not or | + + + Author + + + | Author | [facility] | | | and [place] | + + + | Organization | [facility] | | | [...] Team Providers + +------+ + | Care Outside Salesman Name | Role | Phone | + [...] + + | 09/10/ | Documentati | [facility] | Hermelinda Mcgovern, | Other (urgent | | 2020 | on | CARDIOLOGY [place] | Technologist | report) | | | | [address] | | | | | | [place], [place] | | | | | | [address] | | | | | | [phone] | | | +--------+ + + + [...] encounter Progress Notes Hermelinda Mcgovern, Technologist - 09/11/2019 12:37 PM PDTReceived urgent report on :09/11/19 Pt had an an urgent report. 09/11/19 at 07:00 for a possible 3rd degree AV Block 14 day monitor was placed on 09/04/19 Medications: aspirin 325 MG EC tablet digoxin (LANOXIN) 125 mcg tablet dilTIAZem (CARDIZEM CD) 180 mg 24 hr capsule I called patient and talked to her daughter and she is going to call her mother I will continue to monitor. Please see attachment. Associated attestation - Martín Auguste MD - 09/11/2019 1:04 PM PDTPatient has been called and asked to stop Digoxin. documented in this encounter Plan of Treatment +--------+ + + + + | Date | Type | Specialty | Care Team | Description | +--------+ + + + + | 12/10/ | Procedure | Cardiology | Alexander Darnell, | | 2019 | visit | | [address] | | | | | | [address] | | | | | | [place] [address] | | | | | | [phone] | | | | | | | | +--------+ + + + + | 03/18/ | Office | Cardiology | Ana Cross | | | 2020 | Visit | | [address] | | | | | | [address] | | | | | | [place] [address] | | | | | | [phone] | | | | | | | | +--------+ + + + + documented as of this encounter Visit Diagnoses Not on filedocumented in this encounter"
--- OUTSIDE RECORDS SUMMARY | ~2019-12-09 | XMS | Encounter Summary ---
Demographics + + + | Address | [address] | | | [place] [address] | + + + | Home Phone | | + + + | Preferred Language | Unknown | + + + | Marital Status | | + + + | Church Affiliation | Unknown | + + + | Race | White | + + + | Ethnic Group | Not or | + + + Author + + + | Author | [facility] | | | and [place] | + + + | Organization | [facility] | | | [...] Team Providers + +------+ + | Care Civil Design Technician Name | Role | Phone | + +------+ + | Jaz Desir | PCP | | | PA-C | | | + +------+ + Reason for Visit + +--------+ + | Reason | Onset | Comments | | | Date | | + +--------+ + | Weakness | 09/16/ | | | | 2020 | | + +--------+ + | Emesis | 09/16/ | | | | 2020 | | + +--------+ + Encounter Details +--------+ + + + + | Date | Type | Department | Care Team | Description | +--------+ + + + + | 09/16/ | Telephone | [facility] | Betty Novoa, | Weakness; Emesis | | 2019 | | CARDIOLOGY [place] | [place] | | | | | [address] | | | | | | [place] | | | | | | [address] | | | | | | [phone] | | | +--------+ + + + [...] this encounter Miscellaneous Notes Telephone Encounter - Betty Novoa RN - 09/17/2019 8:47 AM PDT I called her daughter back, and she is going to take her mother to ER. See telephone note First conversation: Patient's daughter, Briseida, called the office this morning with c/o patient deterioration. Patient has a 14 day monitor followed by MYLES Cooper. Patient also sees Dr. Monterroso. Tomorrow is the last day of the monitor. Patient recently had hypokalemia and is supposed to get follow up labs drawn next week. Per Briseida, patient has been weak, hasn't had an appetite, and is not able to complete ADLs. Patient can get herself up to go to the bathroom, but is unable to fix her own meals or saf kevin care for herself. Family has been having to go to the house 4x per day to help her. Charity ent normally can complete ADLs and was self-sufficient until about a week ago, which she has been declining every day. Patient has also been vomiting. Per Briseida, patient threw up and Sunday during the middle of the night, and also yesterday during the day. Daughter lamb s not want to take patient to the ER. This RN is reaching out to Ana Cross to let her know the situation. Briseida advised to call the office back with any changes or concerns. AKASH [facility]dez [facility] umented in this encounter Plan of Treatment [...] | | | | | | [place] [address] | | | | | | [phone] | | | | | | | | +--------+ + + + + | 03/18/ | Office | Cardiology | Ana Cross | | | 2020 | Visit | | [address] | | | | | | [address] | | | | | | [place] [address] | | | | | | [phone] | | | | | | | | +--------+ + + + + documented as of this encounter Visit Diagnoses Not on filedocumented in this encounter"
--- OUTSIDE RECORDS SUMMARY | ~2019-12-09 | XMS | Encounter Summary ---
Demographics + + + | Address | [address] | | | [place] [address] | + + + | Home Phone | | + + + | Preferred Language | Unknown | + + + | Marital Status | | + + + | Hoahaoism Affiliation | Unknown | + + + | Race | White | + + + | Ethnic Group | Not or | + + + Author + + + | Author | [facility] | | | and [place] | + + + | Organization | [facility] | | [...] Team Providers + +------+ + | Care Gate Tender Name | Role | Phone | + +------+ + | Jaz Desir | PCP | | | PA-C | | | + +------+ + Reason for Visit +---------+--------+ + | Reason | Onset | Comments | | | Date | | +---------+--------+ + | Testing | 08/20/ | | | | 2020 | | +---------+--------+ + Encounter Details +--------+ + + + + | Date | Type | Department | Care Team | Description | +--------+ + + + + | 08/20/ | Telephone | [facility] | Ana Cross | Testing | | 2020 | | CARDIOLOGY [place] | [address] | | | | | [address] | | | | | [address] | [place] [address] | | | | | [place] | [phone] | | | | | [address] | | | | | | [phone] | | | +--------+ + + + [...] this encounter Miscellaneous Notes Telephone Encounter - Ana Cross, AIR BRAKES INSPECTOR - 08/21/2019 12:24 PM PDTReceived notificat ion from her graduate internship Dr. Steve on August 21, 2019 that she may be in atrial fib, and needs cardiac risk evaluation for cardiac surgery. I am seeing her on August 27, and we will repeat her EKG, and possibly order an event monitor if indicated. [facility] umcaryn in this encounter Plan of Treatment +--------+ + + + + | Date | Type | Specialty | Care Team | Description | +--------+ + + + + | 12/10/ | Procedure | Cardiology | Alexander Darnell, | | 2019 | visit | | MD [address] | | | | | | [place], | | | | | | [place] [address] | | | | | | [phone] | | | | | | | | +--------+ + + + + | 03/18/ | Office | Cardiology | Ana Cross | | | 2020 | Visit | | [address] | | | | | | [address] | | | | | | [place] [address] | | | | | | [phone] | | | | | | | | +--------+ + + + + documented as of this encounter Visit Diagnoses Not on filedocumented in this encounter"
--- OUTSIDE RECORDS SUMMARY | ~2019-12-09 | XMS | Encounter Summary ---
Demographics + + + | Address | [address] | | | [place] [address] | + + + | Home Phone | | + + + | Preferred Language | Unknown | + + + | Marital Status | | + + + | Jainism Affiliation | Unknown | + + + | Race | White | + + + | Ethnic Group | Not or | + + + Author + + + | Author | [facility] | | | and [place] | + + + | Organization | [facility] | | | [...] + +------+ + | Care Director Of Income Tax Name | Role | Phone | + +------+ + | Jaz Desir | PCP | | | PA-C | | | + +------+ + Encounter Details +--------+ + + + + | Date | Type | Department | Care Team | Description | +--------+ + + + + | 10/01/ | [facility] | [facility] | Aries Sena | | | 2019 | Encounter | MED CTR OR INTRA OP | MD [address] | | | | | [address] | [place] | | | | | [place] | [address] | | | | | [address] | | | | | | [phone] | | | +--------+ + + + [...] + + + | Blood Pressure | 133/82 | 10/02/2019 11:15 AM | | | | | PDT | | + + + + + | Pulse | 78 | 10/02/2019 11:15 AM | | | | | PDT | | + + + + + | Temperature | 36.2 C (97.2 F) | 10/02/2019 11:02 AM | | | | | PDT | | + + + + + | Respiratory Rate | 16 | 10/02/2019 11:02 AM | | | | | PDT | | + + + + + | Oxygen Saturation | 96% | 10/02/2019 11:15 AM | | | | | PDT | | + + + + + | Inhaled Oxygen | - | - | | | Concentration | | | | + + + + + | Weight | 51.7 kg (114 lb) | 10/02/2019 8:59 AM | | | | | PDT | | + + + + + | Height | 154.9 cm (5' 1") | 10/02/2019 8:59 AM | | | | | PDT | | + + + + + | Body Mass Index | 21.54 | 10/02/2019 8:59 AM | | | | | PDT | | + + + + + documented in this encounter Discharge Instructions Instructions Aries Sena MD - 10/02/2019 INSTRUCTIONS FOR AFTER YOUR CATARACT SURGERY 1. [...] you experience significant pain or decreasing vision, pleas e call the office immediately. If this is after normal business hours, tell the answering se karena that you recently had cataract surgery and need to speak with the doctor. 4. There are no limitations on walking, reading, watching TV, working on the [employer] uter, shaving, bathing, or shampooing your hair. [...] Lewis, M D [address] | [place] [address] | P: [phone] | F: [phone] | [employer] documented in this encounter Medications at Time [...] as of this encounter H&P Notes Aries Sena MD - 10/02/2019 10:15 AM PDTSURGICAL INTERIM HISTORY & PHYSICAL UPDATE Pt. Name/Age/: Kae Meyerette 84 y.o. 1935 Date of admission: 10/02/2019 The current H&P was reviewed. The patient [...] Consent was obtained. Electronically signed by: Aries Sena MD, 10/02/2019 10:15 AM PDT [facility] Electronically signed by Aries Sena MD at 0 10/02/2019 10:15 AM PDTEdwardsAries MD - 09/30/2019 3:01 PM [address]PROVIDENCE [address] [id number] HISTORY AND PHYSICAL ARIES SENA MD Patient: KAE JETER Admitting: ARIES SENA MR #: [id number] LOC: PT TYPE: Adm Date: 10/02/2019 : 1935 PREOPERATIVE HISTORY AND PHYSICAL DATE OF PROCEDURE: 10/02/2019. CHIEF COMPLAINT: Poor vision. HISTORY OF PRESENT ILLNESS: Kae is an 84-year-old female who is reporting blurry visi on in her left eye. She is having difficulty seeing to drive, watch TV or movies, read, per form detailed oriented work, write checks or fill out forms, take part in sports or hobbies, and function around the house due to her vision. She notes glare halos and rings around li ghts and worsening of her vision. She desires improved visual acuity and wants cataract ex traction from her left eye. PAST MEDICAL HISTORY: Arthritis, asthma, GERD, hypertension, and shingles. FAMILY HISTORY: Hypertension, arthritis, and cancer. SOCIAL HISTORY: Drinks alcohol. Denies tobacco and recreational drug use. SURGICAL HISTORY: Stomach ulcer surgery, fractured femur repair, left forearm surgery, and cholecystectomy. REVIEW OF SYSTEMS: A 13-point review of systems positive for irregular heartbeat, dry mout h, postnasal drip, asthma, arthritis, back pain, easy bruising, and seasonal allergies. MEDICATIONS: Chlorthalidone. Diltiazem. Advair Diskus. Gabapentin. Potassium chloride. ALLERGIES: METHYLDOPA. BEE VENOM. VALTREX. AMLODIPINE. PHYSICAL EXAMINATION: VITAL SIGNS: Blood pressure 127/83 with a pulse of 69. GENERAL: Oriented to time, place and person. Mood and affect appropriate. Well-developed and well-nourished. HEENT: Normocephalic, atraumatic. Best corrected visual acuity in the left eye is 20/80. Unable to see chart with glare testing. Visual vann are full to finger counting bilatera lly. Extraocular motility is full bilaterally. Pupils are equally round and reactive to li ght with no afferent pupillary defect. 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 Anterior chambers are deep and quiet. Iris is normal. There is 4+ nuclear sclerosis, vacuoles, cortical changes, and 2+ posterior subcapsular cataract, along with 3+ oil droplet cataracts in the lens of the le ft eye. Posterior segment exam shows a somewhat blurry view, but appears to have a mildly s uspicious appearing optic nerve with cup-to-disc ratio of likely 0.65. The retina appears g rossly normal, though the view is limited. There is a posterior vitreous detachment. HEART: Irregularly irregular rhythm at the time of auscultation. Regular rate. (She was assessed by cardiology after her visit here, at that time was noted to have sinus rhythm and has a history of sinus tachycardia with a pronounced first-degree AV block, but no atrial f ibrillation, now rate controlled on medications. Cardiology felt that she was safe to proce ed with cataract surgery.) LUNGS: Clear to auscultation bilaterally. ADMITTING IMPRESSION: 1. Visually significant cataract of the left eye. 2. Glaucoma suspect. PLAN: Extracapsular cataract extraction using phacoemulsification, intraocular lens implan t, left eye. This is to be done under monitored anesthesia care and supplemented by retrobu lbar block. Discussed options for corneal astigmatism and she prefers to use a standard pipe s implant with postoperative glasses. ARIES SENA MD Dictated by ARIES SENA MD 09/30/2019 15:01:54 Transcribed on 09/30/2019 16:26:17 by mikel job# [id number] Confirmation #: [id number] signed by Aries Sena MD at 10/02/2019 10:15 AM PDTdocumented in this encounter Miscellaneous Notes Op Note - Aries Sena MD - 10/02/2019 11:00 AM PDTDATE OF PROCEDURE: 10/02/2019 PREOPERATIVE DIAGNOSIS: Visually significant cataract of the left eye. POSTOPERATIVE DIAGNOSIS: Visually significant cataract of the left eye. NAME OF PROCEDURE: Extracapsular cataract extraction using phacoemulsification and implant ation of an intraocular lens, left eye. SURGEON: Aries Sena MD ANESTHESIA: MAC with retrobulbar block ESTIMATED [...] The total cumulative dispers tito energy was 22.95. An irrigation and aspiration handpiece was then [...] [place], | | | | | | [place] [address] | | | | | | [phone] | | | | | | | | +--------+ + + + + | 03/18/ | Office | Cardiology | Ana Cross | | | 2020 | Visit | | [address] | | | | | | [address] | | | | | | [place] [address] | | | | | | [phone] | | | | | | | | +--------+ + + + + documented as of this encounter Procedures + +--------+ + + + | Procedure Name | Priori | Date/Time | Associated Diagnosis | Comments | | | ty | | | | + +--------+ + + + | EXTRACTION CATARACT | | 10/02/2019 | Age-related | | | W/ OR W/O LENS | | 10:26 AM | nuclear cataract, | | | IMPLANT | | PDT | left eye | | + +--------+ + + + documented in this encounter Visit Diagnoses + + | Diagnosis | + + | HTN (hypertension) Unspecified essential hypertension | + + | 1st degree AV block First degree atrioventricular block | + + | GERD (gastroesophageal reflux disease) Esophageal reflux | + + | Asthma, mild intermittent Unspecified asthma | + + documented in this encounter Administered Medications + +--------+---------+------+------+------+ | Medication Order | MAR | Action | Dose | Rate | Site | | | Action | Date | | | | + +--------+---------+------+------+------+ + +---+ | acetaminophen (TYLENOL) tablet | | | 325-650 mg 325-650 mg, Oral, | | | EVERY 4 HOURS PRN, Pain, Starting | | | Jackie 10/02/19 at 1104, | | | Post-op/Phase II | | + +---+ | | | + +---+ + +-------+ +--------+---+---+ | apraclonidine (IOPIDINE) 1% | Given | 10/02/19 | 1 drop | | | | ophthalmic solution 1 drop 1 | | 20 9:12 | | | | | drop, Left Eye, EVERY 10 MIN, | | AM PDT | | | | | First dose on Jackie 10/02/19 at | | | | | | | 0930, For 2 doses, Pre-op | | | | | | + +-------+ +--------+---+---+ +---+---+ | | | +---+---+ + +-------+ +--------+---+---+ | cyclopentolate (CYCLOGYL) 1% | Given | 10/02/19 | 1 drop | | | | ophthalmic solution 1 drop 1 | | 20 9:12 | | | | | drop, Left Eye, EVERY 10 MIN PRN, | | AM PDT | | | | | prep eye for procedure, Starting | | | | | | | Jackie 10/02/19 at 0902, For 3 | | | | | | | doses, Only give 3rd dose 10 | | | | | | | minutes later if pupil is not | | | | | | | dilated at least 6mm, Pre-op | | | | | | + +-------+ +--------+---+---+ + +---+ | | | [...] glucose < 50, | | | Starting Jackie 10/02/19 at 0902, | | | Repeat in 15 min if blood glucose | | | remains < 70 mg/dL. Repeat | | | blood glucose in 30 min once | | | blood glucose > 70., Pre-op | | + +---+ | | | + +---+ + +-------+ +--------+---+---+ | flurbiprofen (OCUFEN) 0.03% | Given | 10/02/19 | 1 drop | | | | ophthalmic solution 1 drop 1 | | 20 9:12 | | | | | drop, Left Eye, EVERY 10 MIN, | | AM PDT | | | | | First dose on Jackie 10/02/19 at | | | | | | | 0930, For 2 doses, Pre-op | | | | | | + +-------+ +--------+---+---+ +---+---+ | | | +---+---+ + + + +---+---+---+ | lactated ringers (LR) infusion | Continue | 10/02/19 | | | | | at 10-100 mL/hr, Intravenous, | d by | 20 10:26 | | | | | CONTINUOUS, Starting Sun10/02/19 | Anesthes | AM PDT | | | | | at 0930, TKO., Pre-op | ia | | | | | + + + +---+---+---+ +---------+ +---+-------+---+ | New Bag | 10/02/19 | | 100 | | | | 20 9:19 | | mL/hr | | | | AM PDT | | | | +---------+ +---+-------+---+ +---+---+ | | | +---+---+ + +-------+ +--------+---+---+ | phenylephrine (SHAYLA-SYNEPHRINE) | Given | 10/02/19 | 1 drop | | | | 2.5% ophthalmic solution 1 drop | | 20 9:12 | | | | | 1 drop, Left Eye, EVERY 10 MIN | | AM PDT | | | | | PRN, prep eye for procedure, | | | | | | | Starting [facility] 10/02/19 at 0902, For | | | | | | | 3 doses, Only give 3rd dose 10 | | | | | | | minutes later if pupil is not | | | | | | | dilated at least 6mm, Pre-op | | | | | | + +-------+ +--------+---+---+ +---+---+ | | | +---+---+ + +-------+ +--------+---+---+ | proparacaine (ALCAINE) 0.5% | Given | 10/02/19 | 1 drop | | | | ophthalmic solution 1 drop 1 | | 20 9:12 | | | | | drop, Left Eye, EVERY 10 MIN PRN, | | AM PDT | | | | | prep eye for procedure, Starting | | | | | | | Jackie 10/02/19 at 0902, For 3 | | | | | | | doses, Only give 3rd dose 10 | | | | | | | minutes later if pupil is not | | | | | | | dilated at least 6mm, Pre-op | | | | | | + +-------+ +--------+---+---+ +---+---+ | | | +---+---+ + +-------+ +--------+---+---+ | tropicamide (MYDRIACYL) 1% | Given | 10/02/19 | 1 drop | | | | ophthalmic solution 1 drop 1 | | 20 9:12 | | | | | drop, Left Eye, EVERY 10 MIN PRN, | | AM PDT | | | | | prep eye for procedure, Starting | | | | | | | Jackie 10/02/19 at 0902, For 3 | | | | | | | doses, Only give 3rd dose 10 | | | | | | | minutes later if pupil is not | | | | | | | dilated at least 6mm, Pre-op | | | | | | + +-------+ +--------+---+---+ +---+---+ | | | +---+---+ documented in this encounter
--- OUTSIDE RECORDS SUMMARY | ~2019-12-09 | XMS | Encounter Summary ---
Demographics + + + | Address | [address] | | | [place] [address] | + + + | Home Phone | | + + + | Preferred Language | Unknown | + + + | Marital Status | | + + + | Christian Affiliation | Unknown | + + + | Race | White | + + + | Ethnic Group | Not or | + + + Author + + + | Author | [facility] | | | and [place] | + + + | Organization | [facility] | | [...] Team Providers + +------+ + | Care Day Haul Youth Supervisor Name | Role | Phone | + +------+ + | Jaz Desir | PCP | | | PA-C | | | + +------+ + Encounter Details +--------+---------+ + + + | Date | Type | Department | Care Team | Description | +--------+---------+ + + + | 09// | Surgery | [facility] | Power Aries Erica, | RIGHT EXTRACTION | | 2020 | | MED CTR OR INTRA OP | MD [address] | CATARACT W/ OR W/O | | | | [address] | [place], [place] | LENS IMPLANT | | | | [place], [place] | [address] | | | | | [address] | | | | | | [phone] | | | +--------+---------+ + + + Social History [...] walking, reading, watching TV, working on the [employer], shaving, bathing, or shampooing your hair. Do [...] MD David A. Lewis, M D [address] | [place] [address] | P: [phone] | F: [phone] | [employer] documented in this encounter Medications at Time [...] | | | | | | ol (ADVAIR, WIXELA | daily. | | | | | [...] Steve MD, 10/30/2019 10:57 AM PDT [facility] Electronically signed by Aries Steve MD at 0 10/30/2019 10:57 AM PDTEdwardsAries MD - 10/27/2019 9:28 [address]PROVIDENCE [address] [address] HISTORY AND PHYSICAL ARIES STEVE MD Patient: KAE JETER Admitting: ARIES STEVE MR #: [id number] LOC: PT TYPE: Adm Date: 10/30/2019 : [...] Transcribed on 10/27/2019 10:30:57 by mikel job# [id number] Confirmation #: [id number] signed by Aries Steve MD at 10/30/2019 [...] an intraocular lens, right eye. SURGEON: Aries Steve MD ANESTHESIA: MAC with retrobulbar block ESTIMATED [...] handpiece was then used to remove the piep s cortex, and then the capsular bag [...] [place] | | | | | | [place] [address] | | | | | | [phone] | | | | | | | | +--------+ + + + + | 03/18/ | Office | Cardiology | Ana Cross | | | 2020 | Visit | | [address] | | | | | | [address] | | | | | | [place] [address] | | | | | | [phone] | | | | | | | [...] + | Diagnosis | + + | Age-related nuclear cataract, right eye | + + documented in this encounter [...] | | | | First dose on [facility] 10/30/19 at | | | | | | | 0945, For 2 doses, Pre-op | | | | | | + +-------+ +--------+---+---+ +-------+ +--------+---+---+ | Given | 10/30/19 | 1 drop | | | | | 20 9:28 | | | | | | AM PDT | | | | +-------+ +--------+---+---+ +---+---+ | | | +---+---+ + +-------+ + +---+ + | balanced salts sterile | Given | 10/30/19 | 1 | | [facility] | | ophthalmic irrigation solution | | 20 11:44 | Applicat | | t | | PRN, Starting [facility] 10/30/19 at | | AM PDT | ion | | | | 1144, Intra-op | | | | | | + +-------+ + +---+ + +---+---+ | | | +---+---+ + +-------+ [...] | | | | | | Starting [facility] 10/30/19 at 0916, For | | [...] glucose < 50, | | | Starting [facility] 10/30/19 at 0916, | | | [...] | | | + +---+ + +-------+ +--------+---+ + | EPINEPHrine 1 mg/mL injection | Given | 10/30/19 | 0.4 mg | | [facility] | | PRN, Starting Jackie 10/30/19 at | | 20 11:44 | | | t | | 1144, Intra-op | | AM PDT | | | | + +-------+ +--------+---+ + +---+---+ | | | +---+---+ + +-------+ +--------+---+---+ | flurbiprofen (OCUFEN) 0.03% [...] +---+---+ | | | +---+---+ + +-------+ +-------+---+---+ | hyaluronate & chondroitin | Given | 10/30/19 | 1 kit | | | | hyaluronate (DUOVISC) intraocular | | 20 11:44 | | | | | kit PRN, Starting Jackie 10/30/19 | | AM PDT | | | | | at 1144, Intra-op | | | | | | + +-------+ +-------+---+---+ +---+---+ | | | +---+---+ + +---------+ +---+---+---+ | lactated ringers (LR) infusion | New Bag | 10/30/19 | | | | | at 10-100 mL/hr, Intravenous, | | 20 11:32 | | | | | CONTINUOUS, Starting Sun10/30/19 | | AM PDT | | | | | at 0945, TKO., Pre-op | | | | | | + +---------+ +---+---+---+ +---+---+ | | | +---+---+ + +-------+ +-------+---+ + | lidocaine (PF) 2% injection | Given | 10/30/19 | 4 mLs | | [facility] | | PRN, Starting Sun10/30/19 at | | 20 11:44 | | | t | | 1144, Intra-op | | AM PDT | | | | + +-------+ +-------+---+ + +---+---+ | | | +---+---+ + +-------+ +--------+---+ + | moxifloxacin (VIGAMOX) 0.5 % | Given | 10/30/19 | 0.5 mg | | [facility] | | intracameral injection PRN, | | 20 11:45 | | | t | | Starting [facility] 10/30/19 at 1145, | | AM PDT | | | | | Intra-op | | | | | | + +-------+ +--------+---+ + + +---+ | | | + +---+ [...] ONCE PRN, Pain, | | | Starting Jackie 10/30/19 at 1157, For | | | [...] | | +---+---+ + +-------+ +--------+---+---+ | povidone-iodine 5 % ophthalmic | Given | 10/30/19 | 1 drop | | | | solution PRN, Starting Jackie | | 20 11:36 | | | | | 10/30/19 at 1136, Intra-op | | AM PDT | | | | + +-------+ +--------+---+---+ [...] | | | | | | Starting [facility] 10/30/19 at 0916, For | | [...] +---+---+ | | | +---+---+ + +-------+ +------+---+ + | triamcinolone acetonide | Given | 10/30/19 | 5 mg | | [facility] | | (KENALOG-10) 10 mg/mL injection | | 20 11:45 | | | t | | PRN, Starting Jackie 10/30/19 at | | AM PDT | | | | | 1145, Intra-op | | | | | | + +-------+ +------+---+ + +---+---+ | | | +---+---+ + +-------+ [...] | | | | | | Starting [facility] 10/30/19 at 0916, For | | [...]
--- OUTSIDE RECORDS SUMMARY | ~2019-12-09 | XMS | Encounter Summary ---
Demographics + + + | Address | [address] | | | [place] [address] | + + + | Home Phone | | + + + | Preferred Language | Unknown | + + + | Marital Status | | + + + | Nondenominational Affiliation | Unknown | + + + | Race | White | + + + | Ethnic Group | Not or | + + + Author + + + | Author | [facility] | | | and [place] | + + + | Organization | [facility] | | | [...] Team Providers + +------+ + | Care Latin Dance Instructor Name | Role | Phone | + +------+ + | Jaz Desir | PCP | | | PA-C | | | + +------+ + Encounter Details +--------+ + + + + | Date | Type | Department | Care Team | Description | +--------+ + + + + | 09/29/ | Orders Only | [facility] | Jason Steve, | Nuclear sclerotic | | 2019 | | MED CTR PROVIDER | [address] | cataract of left eye | | | | SURGICAL [address] | [place], [place] | (Primary Dx) | | | | [place], | [address] | | | | | [place] [address] | | | | | | [phone] | | | +--------+ + + + [...] 12/10/ | Procedure | Cardiology | Alexander Darnell Alfonso, | | | 2019 | visit | | [address] | | | | | | [place], | | | | | | [place] [address] | | | | | | [phone] | | | | | | | | +--------+ + + + + | 03/18/ | Office | Cardiology | Ana Cross | | | 2020 | Visit | | [address] | | | | | | [address] | | | | | | [place] [address] | | | | | | [phone] | | | | | | | | +--------+ + + + + documented as of this encounter Visit Diagnoses + + | Diagnosis | + + | 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
--- OUTSIDE RECORDS SUMMARY | ~2019-12-09 | XMS | Encounter Summary ---
Demographics + + + | Address | [address] | | | [place] [address] | + + + | Home Phone | | + + + | Preferred Language | Unknown | + + + | Marital Status | | + + + | Evangelical Affiliation | Unknown | + + + | Race | White | + + + | Ethnic Group | Not or | + + + Author + + + | Author | [facility] | | | and [place] | + + + | Organization | [facility] | | | and [place] | + [...] Team Providers + +------+ + | Care Sign Manufacturer Name | Role | Phone | + [...] + + | 09/11/ | Documentati | [facility] | Hermelinda Mcgovern, | Other (urgent | | 2020 | on | [facility] [place] | Technologist | report) | | | | [address] | | | | | | [place], [place] | | | | | | [address] | | | | | | [phone] | | | +--------+ + + + [...] encounter Progress Notes Hermelinda Mcgovern, Technologist - 09/12/2019 7:45 AM PDTReceived urgent report on :09/12/19 Pt had an an urgent report. 14 day monitor was placed on 09/04/19 Medications: aspirin 325 MG EC tablet digoxin (LANOXIN) 125 mcg tablet dilTIAZem (CARDIZEM CD) 180 mg 24 hr capsul e I will continue to monitor. Please see attachment. Associated attestation - Martín Auguste MD - 09/12/2019 7:56 PM PDTAgree documented in this encounter Plan of Treatment +--------+ + + + + | Date | Type | Specialty | Care Team | Description | +--------+ + + + + | 12/10/ | Procedure | Cardiology | Alexander Darnell, | | | 2019 | visit | | [address] | | | | | | [place] | | | | | | [place] [address] | | | | | | [phone] | | | | | | | | +--------+ + + + + | 03/18/ | Office | Cardiology | Ana Cross | | | 2020 | Visit | | [address] | | | | | | [address] | | | | | | [place] [address] | | | | | | [phone] | | | | | | | | +--------+ + + + + documented as of this encounter Visit Diagnoses Not on filedocumented in this encounter"
--- OUTSIDE RECORDS SUMMARY | ~2019-12-09 | XMS | Encounter Summary ---
Demographics + + + | Address | [address] | | | [place] [address] | + + + | Home Phone | | + + + | Preferred Language | Unknown | + + + | Marital Status | | + + + | Islam Affiliation | Unknown | + + + | Race | White | + + + | Ethnic Group | Not or | + + + Author + + + | Author | [facility] | | | and [place] | + + + | Organization | [facility] | | | [...] Team Providers + +------+ + | Care Creative Specialist Name | Role | Phone | + +------+ + | Jaz Desir | PCP | | | PA-C | | | + +------+ + Encounter Details +--------+ + + + + | Date | Type | Department | Care Team | Description | +--------+ + + + + | 12/30/ | Transcribed | [facility] | Jaz Desir | Atrial fibrillation, | | 2019 | Orders | CARDIOLOGY [place] | CAROL Beckham | unspecified type | | | | [address] | [address] | ([facility]) (Primary Dx) | | | | [place] | [place], [place] | | | | | [address] | [address] | | | | | [phone] | [phone] | | | | | | | [...] | | | | | | [place] [address] | | | | | | [phone] | | | | | | | | +--------+ + + + + | 03/18/ | Office | Cardiology | Ana Cross | | | 2020 | Visit | | [address] | | | | | | [address] | | | | | | [place] [address] | | | | | | [phone] | | | | | | | [...]
--- OUTSIDE RECORDS SUMMARY | ~2019-12-09 | XMS | Encounter Summary ---
Demographics + + + | Address | [address] | | | [place] [address] | + + + | Home Phone [...] + + + | Author | [facility] | | | and [place] | + + + | Organization | [facility] | | | [...] Team Providers + +------+ + | Care Spray Rig Operator Name | Role | Phone | [...] + + + | Authorized | | | Diagnoses | Alqaisi, | [facility] | | | | | Tachycardia | MD Martín | HOSPITAL | | | | | Cardiac | [address] | | | | | arrhythmia, | [address] | [address] | | | | | unspecified | [place], | [place], [place] | | | | | cardiac | [place] [address] | [address] | | | | | arrhythmia | Phone: | Phone: | | | | | type | [phone] | [phone] | | | | | Procedures | Fax: | Fax: | | | | | ECHO | [phone] | [phone] | | | | | Complete | [...] | Cardiology | Diagnoses | Thang, | Alchiqui, | | | | | Unspecified | Jaz | MD Martín | | | | | atrial | Bhavani, | [address] | | | | | fibrillation | PA-C [address] | | | | | | (HCC) | [address] | [place], [place] | | | | | Procedures | Ave | [address] Phone: | | | | | CONSULT & 14 | [place], | [phone] | | | | | day monitor | [place] | Fax: | | | | | | [address] | [phone] | | | | | | Phone: | | | | | | | [phone] | | | | | | | Fax: | | | | | | | [phone] | | + +--------+ + + + + Encounter Details +--------+---------+ + + + | Date | Type | Department | Care Team | Description | +--------+---------+ + + + | 03/12/ | Office | [facility] | Martín Auguste MD | Tachycardia; Cardiac | | 2019 | Visit | CARDIOLOGY [place] | [address] | arrhythmia, | | | | [address] | [place] [address] | unspecified cardiac | | | | [place], [place] | [phone] | arrhythmia type | | | | [address] | | | | | | [phone] | | | +--------+---------+ + + + [...] once a day. Follow-up with Patria toledo [place] for review the results and the effect [...] [place] | | | | | | [place] [address] | | | | | | [phone] | | | | | | | | +--------+ + + + + | 03/18/ | Office | Cardiology | Ana Cross | | | 2020 | Visit | | [address] | | | | | | [address] | | | | | | [place] [address] | | | | | | [phone] | | | | | | | [...]
--- OUTSIDE RECORDS SUMMARY | ~2019-12-09 | XMS | Encounter Summary ---
Demographics + + + | Address | [address] | | | [place] [address] | + + + | Home Phone | | + + + | Preferred Language | Unknown | + + + | Marital Status | | + + + | Orthodoxy Affiliation | Unknown | + + + | Race | White | + + + | Ethnic Group | Not or | + + + Author + + + | Author | [facility] | | | and [place] | + + + | Organization | [facility] | | [...] Team Providers + +------+ + | Care Planning Director Name | Role | Phone | + +------+ + | Jaz Desir | PCP | | | PA-C | | | + +------+ + Reason for Visit + + + | Reason | Comments | + + + | Follow-up, Office | Echo done | | Visit | | + + + Evaluate & [...] [address] | | | | | | ([facility]) | [address] | [place], [place] | | | | | Procedures | Ave | [address] Phone: | | | | | CONSULT & 14 | [place] | [phone] | | | | | day monitor | [place] | Fax: | | | | | | [address] | [phone] | | | | | | Phone: | | | | | | | [phone] | | | | | | | Fax: | | | | | | | [phone] | | + +--------+ + + + + Encounter Details +--------+---------+ + + + | Date | Type | Department | Care Team | Description | +--------+---------+ + + + | 04/14/ | Office | [facility] | Ana Cross | Tachycardia (Primary | | 2019 | Visit | CARDIOLOGY [place] | [address] | Dx); Premature | | | | [address] | [address] | atrial contractions; | | | | [address] | [place] [address] | First degree AV | | | | [place] | [phone] | block; Essential | | | | [address] | | hypertension; | | | | [phone] | | Nonrheumatic aortic | | | [...] | | | | prior echocardiogram | +--------+---------+ + + + Social History [...] + + + | Blood Pressure | 110/70 | 04/14/2019 2:53 PM | | | | | PST | | + + + + + | Pulse | 89 | 04/14/2019 2:53 PM | | | | | PST | | + + + + + | Temperature | - | - | | + + + + + | Respiratory Rate | - | - | | + + + + + | Oxygen Saturation | 95% | 04/14/2019 2:53 PM | | | | | PST | | + + + + + | Inhaled Oxygen | - | - | | | Concentration | | | | + + + + + | Weight | 53.4 kg (117 lb 11.2 | 04/14/2019 2:53 PM | | | | oz) | PST | | + + + + + | Height | 152.4 cm (5') | 04/14/2019 2:53 PM | | | | | PST | | + + + + + | Body Mass Index | 22.99 | 04/14/2019 2:53 PM | | | | | PST | | + + + + + documented in this encounter Patient Instructions Patient Instructions Ana Cross FNP - 04/14/2019 3:00 PM PSTYour echo looked go od Your heart rate still a little high, so I have increased your Diltiazem to 180 mg, so stop Cardizem 120 mg. I made no other changes to medications See me back in 6 weeks, but sooner if needed Please bring your medication bottles to all clinic visits to help us maintain safe care for you, and ensure accurate medication record Greg documented in this encounter Progress Notes Ana Cross FNP - 04/14/2019 3:00 PM PSTFormatting of this note might be differe nt from the original. Date of visit: 04/14/2019 Primary Care Physician: Jaz Desir PA-C CHIEF COMPLAINT: Chief Complaint Patient presents with Follow-up, Office Visit Echo done HISTORY OF PRESENT ILLNESS: Ms. Kae Jeter is an 83 year old woman who is here today to follow up on results of her echo, and response to Cardizem. She is accompanied today by her daughter Briseida who contributed to history. She is a patient of Dr. Auguste and last seen by him 03/12/2019 for consultation on pos sible atrial fibrillation.. Today, I reviewed all previous documentation available to me in electronic medical akil rds and from external sources. She has a history of fast and irregular heart rate, hypertension , and asthma She had been consulted by Dr. Auguste for concern of atrial fib and he noted per her EKG a nd event monitor, her rhythm was sinus tachycardia, sinus arrhythmia with frequent PAC's, an d noted first-degree AV block made the P waves merges with the T waves. He felt there was no indication for anticoagulation. He recommended an echocardiogram and Cardizem 120 mg once a day. Her current and previous testing and procedures are detailed below She reports today that she has felt improved on Cardizem, and her heart rate and blood pr essure have been controlled, and denies any dyspnea, and feels her breathing and activity t marsha has improved, and she feels she is back to her baseline pulmonary function since he r asthma exacerbation in December. She reports occasional mild pedal edema , and denies any dizziness or syncope, or any sign s or symptoms of stroke. She exercises minimally due to limited mobility and walker. She denies any smoking history, drink 2 servings of tea lately ,and drinks a beer every 2 -3 month, and denies use of recreational or illicit drugs . She did not bring her medications with her, but I personally reviewed pharmacy dispense re cord. REVIEW OF SYSTEMS: Negative except for pertinent items noted in HPI. Constitutional: Denies fatigue or unexplained weight loss. Appetite is average . Weight i s stable. Denies night sweats fevers or chills HENT: Denies nosebleeds. Moderate hearing Loss with hearing aids Denies dysphagia Eyes: Cataracts, needs surgery .Denies visual disturbance or double vision. Respiratory/Sleep::Mild HUMPHREYS with more extreme exertions. Asthma . Denies cough Denies he moptysis or excessive sputum production. Denies snoring, orthopnea, PND. Cardiovascular: Occasional pedal edema. Denies chest pain, palpitations Denies history o f rheumatic fever. Denies claudication . Denies AAA. Gastrointestinal: Occasional GERD . Denies nausea, vomiting, abdominal pain and blood in stool.Hx PUD in 1990. . Genitourinary: Denies hematuria. Musculoskeletal: Osteoporosis affecting back , and osteoarthritis affecting knees. Denies m yalgias.. Skin: Denies color change. Denies rash or lesions Neurological: Denies history of stroke/Transient ischemic attack.Denies history of seizures . Denies dizziness, syncope and numbness. Hematological/Oncology . Bruises easily. Denies bleeding Denies history of cancer. Hx blo od transfusion with PUD 1980 Endocrine: Denies diabetes or thyroid disease. Denies excessive thirst or hunger. Psychiatric/Behavioral:Occasional Situational Anxiety. Denies any history of depression or anxiety or other psychiatric illness. Vaccines: Current on flu vaccine?. Current on post 65 pneumonia vaccine?. Habits/Social : Denies history of smoking. EtOH use: 1 beer every 2 months . Drinks 1-2 s ervings of Tea daily , occasional soda. . Denies recreational or illicit drug use. Exer cises seldom . Lives in [place] [facility] Medications Prior to Visit Medication Sig Dispense Refill Albuterol Sulfate (VENTOLIN HFA IN) Inhale 2 puffs into the lungs as needed. chlorthalidone 25 mg tablet Take 25 mg by mouth Daily. dilTIAZem (DILTIAZEM CD) 120 mg 24 hr capsule Take 1 capsule by mouth Daily. 90 capsule 3 fluticasone-salmeterol (ADVAIR, WIXELA INHUB) 250-50 mcg/puff diskus inhaler Inhale 1 p uff into the lungs 2 times daily. gabapentin (NEURONTIN) 300 mg capsule Take 300 mg by mouth 3 times daily. potassium chloride (MICRO-K) 10 mEq CR capsule Take 10 mEq by mouth Daily. No facility-administered medications prior to visit. PHYSICAL EXAM: Wt Readings from Last 3 Encounters: 04/14/19 53.4 kg (117 lb 11.2 oz) 03/12/19 53.5 kg (118 lb) Temp Readings from Last 3 Encounters: No data found for Temp BP Readings from Last 3 Encounters: 04/14/19 110/70 03/12/19 108/72 Pulse Readings from Last 3 Encounters: 04/14/19 89 03/12/19 90 GENERAL: Frail elderly woman , in no distress. Appears approximately stated age. HEENT: Normocephalic, atraumatic. EYES: PERRL, EOM normal. MOUTH: Oral mucosae moist, dentition adequate, no lesions noted NECK: No JVD, lymphadenopathy, thyromegaly, bruits. Carotid pulses are 2+ bilaterally LUNGS/CHEST: Clear bilaterally, with no rales, rhonchi or wheezing noted, respirations unl abored HEART: Nondisplaced PMI, regular rate and rhythm but some acceleration in rate with exerti on, S1, S2 normal. No murmurs, rubs or gallops noted. ABDOMEN: Soft, nontender, no organomegaly, masses or bruits. Bowel sounds are normal in a ll 4 quadrants. The abdominal aortic pulsation is not palpable. EXTREMITIES: Trace pedal Edema to right foot, none on left. . Radial pulses 2+ bilaterall y. Femoral pulses are 2+ bilaterally without bruits. DP and PT pulses are 2+ bilaterally. No clubbing. SKIN: Warm and dry, capillary refill is normal, no lesions. NEUROLOGIC: Awake, alert and oriented x 3. No focal motor or sensory deficits. PSYCHIATRIC: Appropriate, affect appears normal DATA: Blood tests: No results found for: WBC, RBC, HGB, HCT, PLT No results found for: NA, K, CL, CO2, ANIONGAP, GLUF, BUN, CREATININE, EGFR No results found for: CHOL, TRIG, LDL, LDL, GLUF No results found for: BNP, TSH, CRP No results found for: TOTEPI CARDIAC PROCEDURES/IMAGING-none VASCULAR TESTING AND PROCEDURES-none ECHO Echo: 04/11/2019: EF 65%, LV normal in size with mild LVH and septal knuckle present, mild diastolic dysfunction. RV normal in size and function. Mild LAE. Sinus of Valsalva throug h ascending aorta normal caliber. IVC WNL. No evidence of pericardial effusion, fat pad pr esent. No pleural effusion. Aortic valve trileaflet, mildly calcified, sclerosis without s tenosis, mild to moderate AI. Mitral valve normal with mild MAC, mild to moderate MR. Mild TR with velocity 2.5 m/s, estimated PASP 25 mmHg, no pulmonary hypertension, RVSP 28 mmHg v alve not well visualized, trace SD EKG/EVENT MONITOR Event Monitor 2 week : 01/2019: Predominantly sinus rhythm, average rate 97, slowest 64, m aximum 158. 4325 single PVC's, 87 couplets and 1 triplet. 2 episodes of nonsustained V. tac h, longest 6 beats. Total ventricular activity 0.24%. 87,524 single PAC's, 1790 couplets a nd 60 triplets. Total supraventricular activity 4.89%. 579 episodes mainly at night. No a trial fibrillation. No symptoms were reported. EK03/12/2019: SR with first degree AVB Low voltage QRS lead III, AVL, AVF and anterior le ads.Rate 90 bpm , SD 254, QRS 74 ms, QTC 443, tracing personally reviewed by ky LABS Labs: 12/10/2018:( [facility]) CBC: WBC 5.7, RBC 4.9, hemoglobin 16.3, hematocrit 47.4, platel ets 202. CMP: Glucose 121, BUN 10, creatinine 0.55, GFR 106, sodium 137, potassium 3.2, alb umin 3.5 bilirubin 0.9, AST 24, ALT 15, alk phos 99, troponin T i <0.010, BNP 124 Labs: 12/25/2018: ( [facility] ER):CBC: WBC 7.6, RBC 4.9, hemoglobin 15.9, hematocrit 46.8, platele ts 235. BMP: Glucose 98, BUN 18, creatinine 0.62, GFR 92, sodium 136, potassium 3.4, chlorid e 96, CO2 30, troponin T <0.010 ASSESSMENT & PLAN: She was here today with her daughter to follow up on results of her Echo and response to Cardizem. She has problems as detailed below Her Echo performed on April 11 is detailed above and reports a normal EF of 65%, LV no rmal in size with mild LVH, mild diastolic dysfunction, RV normal in size and function, mild LAE no pericardial or pleural effusion, mild to moderate AI, no aortic stenosis, mild to mo derate MR, and mild TR, and no pulmonary hypertension I reviewed the tests results in detail with her and her daughter. Symptomatically she feels better since she has been Cardizem, but her heart rates remai ns elevated, and I noticed it quickly increased in rate with exertion, so I have increased h er diltiazem to 180 mg daily I made no other changes to cardiac medications today, and she should continue chlortha lidone 25 mg daily, and potassium 10 mEq daily, and I have also encouraged her to use her Ad vair as prescribed twice daily to help avoid future asthma exacerbations. I will see her back on May 25 to follow-up on her response to increased dose of Cardizem, but sooner if needed. 1. Cardiac arrhythmia, unspecified cardiac arrhythmia type 2. Tachycardia 3. Premature atrial contractions 4. First degree AV block 5. Essential hypertension 6. Nonrheumatic aortic valve insufficiency 7. Moderate mitral regurgitation by prior echocardiogram 8. Mild tricuspid regurgitation by prior echocardiogram No orders of the defined types were placed in this encounter. @ASSESSMENTPLANEND@ The following portions of the patient's history were personally reviewed by me and updated as appropriate: EKG tracings, other specialty provider and PCP notes,any Hospital admission and discharge summaries, any ER records , current and previous cardiac testing and procedure reports and d colin, medication bottles NOT brought to visit today but pharmacy dispense record personall y reviewed by me. Allergies, current medications.labs Family history, past medical history, past social history, past surgical history. Problem list. This encounter was dictated with voice recognition software and may contain inadvertent rec ognition errors. Portions of this chart may have been copied from previous notes for continuity of care purp ron MEEKS [facility] Cardiology 04/14/2019 Zach watson in this encounter Plan of Treatment +--------+ + + + + | Date | Type | Specialty | Care Team | Description | +--------+ + + + + | 12/10/ | Procedure | Cardiology | Alexander Darnell, | | | 2019 | visit | | [address] | | | | | | [place] | | | | | | [place] [address] | | | | | | [phone] | | | | | | | | +--------+ + + + + | 03/18/ | Office | Cardiology | Ana Cross | | | 2020 | Visit | | [address] | | | | | | [address] | | | | | | [place] [address] | | | | | | [phone] | | | | | | | | +--------+ + + + + documented as of this encounter Procedures + +--------+ + + + | Procedure Name | Priori | Date/Time | Associated Diagnosis | Comments | | | ty | | | | + +--------+ + + + | ECHO-EXTERNAL SCAN | | 04/22/2019 | | Results for this | | | | 12:00 AM | | procedure are in the | | | | PST | | results section. | + +--------+ + + + documented in this encounter Results ECHO-EXTERNAL SCAN (04/22/2019 12:00 AM PST) + + + | Narrative | Performed At | + + + | Ordered by an | | | unspecified provider. | | + + + documented in this encounter Visit Diagnoses + + | Diagnosis | + + | Tachycardia - Primary Tachycardia, unspecified | + + | Premature atrial contractions Supraventricular premature beats | + + | First degree AV block First degree atrioventricular block | + + | Essential hypertension Unspecified essential hypertension | + + | Nonrheumatic aortic valve insufficiency Aortic valve disorders | + + | Moderate mitral regurgitation by prior echocardiogram Mitral valve disorders | + + | Mild tricuspid regurgitation by prior echocardiogram Diseases of tricuspid valve | + + documented in this encounter"
--- OUTSIDE RECORDS SUMMARY | ~2019-12-09 | XMS | Encounter Summary ---
Demographics + + + | Address | [address] | | | [place] [address] | + + + | Home Phone | | + + + | Preferred Language | Unknown | + + + | Marital Status | | + + + | Denominational Affiliation | Unknown | + + + | Race | White | + + + | Ethnic Group | Not or | + + + Author + + + | Author | [facility] | | | and [place] | + + + | Organization | [facility] | | | [...] Team Providers + +------+ + | Care Licensed Occupational Therapist Name | Role | Phone | + [...] + + | 09/10/ | Documentati | [facility] | Hermelinda Mcgovern, | Other (urgent | | 2020 | on | CARDIOLOGY [place] | Technologist | report) | | | | [address] | | | | | | [place], [place] | | | | | | [address] | | | | | | [phone] | | | +--------+ + + + [...] | | | | | | [place] [address] | | | | | | [phone] | | | | | | | | +--------+ + + + + | 03/18/ | Office | Cardiology | Ana Cross | | | 2020 | Visit | | [address] | | | | | | [address] | | | | | | [place] [address] | | | | | | [phone] | | | | | | | | +--------+ + + + + documented as of this encounter Visit Diagnoses Not on filedocumented in this encounter"
--- OUTSIDE RECORDS SUMMARY | ~2019-12-09 | XMS | Encounter Summary ---
Demographics + + + | Address | [address] | | | [place] [address] | + + + | Home Phone | | + + + | Preferred Language | Unknown | + + + | Marital Status | | + + + | Christian Affiliation | Unknown | + + + | Race | White | + + + | Ethnic Group | Not or | + + + Author + + + | Author | [facility] | | | and [place] | + + + | Organization | [facility] | | | and [...] Team Providers + +------+ + | Care Farm Management Adviser Name | Role | Phone | + [...] + + | 02/06/ | Documentati | [facility] | Hermelinda Mcgovern, | Other (end of study) | | 2019 | on | CARDIOLOGY [place] | Technologist | | | | | [address] | | | | | | [facility] | | | | | | [address] | | | | | | [phone] | | | +--------+ + + + [...] Technologist - 02/06/2019 11:59 PM PST Cardiac Bench Jeweler Date of Event Monitor: 02/06/19 Referring Physician: [...] | | | | | | [place] [address] | | | | | | [phone] | | | | | | | | +--------+ + + + + | 03/18/ | Office | Cardiology | [facility] | | | 2020 | Visit | | [address] | | | | | | [address] | | | | | | [place] [address] | | | | | | [phone] | | | | | | | | +--------+ + + + + documented as of this encounter Visit Diagnoses + + | Diagnosis | + + | Atrial fibrillation, unspecified type (HCC) | + + documented in this encounter"
--- OUTSIDE RECORDS SUMMARY | ~2019-12-09 | XMS | Encounter Summary ---
Demographics + + + | Address | [address] | | | [place] [address] | + + + | Home Phone | | + + + | Preferred Language | Unknown | + + + | Marital Status | | + + + | Jehovah'S Witness Affiliation | Unknown | + + + | Race | White | + + + | Ethnic Group | Not or | + + + Author + + + | Author | [facility] | | | and [place] | + + + | Organization | [facility] | | | and [...] Team Providers + +------+ + | Care Organizational Research Consultant Name | Role | Phone | + [...] [address] | | | | | | ([facility]) | [address] | [place], [place] | | | | | Procedures | Ave | [address] Phone: | | | | | CONSULT & 14 | [place] | [phone] | | | | | day monitor | [place] | Fax: | | | | | | [address] | [phone] | | | | | | Phone: | | | | | | | [phone] | | | | | | | Fax: | | | | | | | [phone] | | + +--------+ + + + + Encounter Details +--------+---------+ + + + | Date | Type | Department | Care Team | Description | +--------+---------+ + + + | 04/14/ | Office | [facility] | Ana Cross | Tachycardia (Primary | | 2019 | Visit | CARDIOLOGY [place] | [address] | Dx); Premature | | | | [address] | [address] | atrial contractions; | | | | [address] | [place] [address] | First degree AV | | | | [place] | [phone] | block; Essential | | | | [address] | | hypertension; | | | | [phone] | | Nonrheumatic aortic | | | [...] use. Exer cises seldom . Lives in [place] [facility] Medications Prior to Visit Medication Sig [...] mmHg v alve not well visualized, trace AR EKG/EVENT MONITOR Event Monitor 2 week : [...] and anterior le ads.Rate 90 bpm , AR 254, QRS 74 ms, QTC 443, tracing personally reviewed by ms LABS Labs: 12/10/2018:( [facility] ER) CBC: WBC 5.7, RBC 4.9, hemoglobin 16.3, hematocrit 47.4, platel ets 202. CMP: Glucose 121, BUN 10, creatinine 0.55, GFR 106, sodium 137, potassium 3.2, alb umin 3.5 bilirubin 0.9, AST 24, ALT 15, alk phos 99, troponin T i <0.010, BNP 124 Labs: 12/25/2018: ( [facility] ER):CBC: WBC 7.6, RBC 4.9, hemoglobin 15.9, [...] for continuity of care purp ron MEEKS [facility] Cardiology 04/14/2019 Zach watson in this [...] [place] | | | | | | [place] [address] | | | | | | [phone] | | | | | | | | +--------+ + + + + | 03/18/ | Office | Cardiology | Ana Cross | | | 2020 | Visit | | [address] | | | | | | [address] | | | | | | [place] [address] | | | | | | [phone] | | | | | | | [...]
--- OUTSIDE RECORDS SUMMARY | ~2019-12-09 | XMS | Encounter Summary ---
Demographics + + + | Address | [address] | | | [place] [address] | + + + | Home Phone | | + + + | Preferred Language | Unknown | + + + | Marital Status | | + + + | Pentecostalism Affiliation | Unknown | + + + | Race | White | + + + | Ethnic Group | Not or | + + + Author + + + | Author | [facility] | | | and [place] | + + + | Organization | [facility] | | | and [...] Team Providers + +------+ + | Care City Designer Name | Role | Phone | [...] + + + + | 09/03/ | Documentati | [facility] | Hermelinda Mcgovern, | Other (end of study) | | 2020 | on | CARDIOLOGY [facility] | Technologist | | | | | [address] | | | | | | [facility] [place] | | | | | | [address] | | | | | | [phone] | | | +--------+ + + + [...] encounter Progress Notes Hermelinda Mcgovern, Technologist - 09/04/2019 11:59 PM PDT Date of Event Monitor: 09/04/19 Referring Physician: [place]: Kae Jeter : 1935 Age: 84 y.o. female INDICATIONS: I49.3 Ventricular premature depol., I44.0 AV block, 1st degree, R. 1. Monitor for 2 weeks 2. Predominantly sinus rhythm 3. Average rate 83, maximum 161, minimum 53. 4. Multiple episodes of second-degree AV block 5. Few episodes of complete heart block and pauses 2.3 seconds. 6. 3409 atrial runs, longest for 1 minute and 19 seconds at a rate of 119. 7. The patient was called during the monitor and her digoxin was stopped. documented in this enco unter Plan of Treatment +--------+ + + + + | Date | Type | Specialty | Care Team | Description | +--------+ + + + + | 12/10/ | Procedure | Cardiology | Alexander Darnell, | | | 2019 | visit | | [address] | | | | | | [place] | | | | | | [place] [address] | | | | | | [phone] | | | | | | | | +--------+ + + + + | 03/18/ | Office | Cardiology | Ana Cross | | | 2020 | Visit | | [address] | | | | | | [address] | | | | | | [place] [address] | | | | | | [phone] | | | | | | | | +--------+ + + + + documented as of this encounter Visit Diagnoses Not on filedocumented in this encounter"
--- OUTSIDE RECORDS SUMMARY | ~2019-12-09 | XMS | Encounter Summary ---
Demographics + + + | Address | [address] | | | [place] [address] | + + + | Home Phone | | + + + | Preferred Language | Unknown | + + + | Marital Status | | + + + | Scientologist Affiliation | Unknown | + + + | Race | White | + + + | Ethnic Group | Not or | + + + Author + + + | Author | [facility] | | | and [place] | + + + | Organization | [facility] | | | [...] Team Providers + +------+ + | Care Fuels Sales Representative Name | Role | Phone | + [...] + + | 09/03/ | Procedure | [facility] | Ana Cross | Tachycardia; First | | 2019 | visit | CARDIOLOGY [place] | [address] | degree AV block; | | | | [address] | [address] | Premature atrial | | | | [address] | [place] [address] | contractions; | | | | [place] | [phone] | Palpitations | | | | [address] | | | | | | [phone] | | | +--------+ + + + [...] PDT14 day cardiac event monitor placed on [facility] nt. EOB/Billing information discussed. Instructions given and [...] | | | | | | [place] [address] | | | | | | [phone] | | | | | | | | +--------+ + + + + | 03/18/ | Office | Cardiology | Ana Cross | | | 2020 | Visit | | [address] | | | | | | [address] | | | | | | [place] [address] | | | | | | [phone] | | | | | | | [...]
--- OUTSIDE RECORDS SUMMARY | ~2019-12-09 | XMS | Clinical Summary ---
Demographics + + + | Address | [address] | | | [place] [address] | + + + | Home Phone | | + + + | Preferred Language | Unknown | + + + | Marital Status | | + + + | Shinto Affiliation | Unknown | + + + | Race | White | + + + | Ethnic Group | Not or | + + + Author + + + | Author | [facility] | | | and [place] | + + + | Organization | [facility] | | | [...] Team Providers + +------+ + | Care Legal Consultant Name | Role | Phone | [...] | Methyldopa | Other (See Comments) | Low | 03/12/19 | Fatigued | | | | | 20 | | + + + + + + | Amlodipine | Unknown | | 03/12/19 | | | | | | 20 | | + + + + + + | Bee Venom | Other (See Comments) | Low | 03/12/19 | Red line went up | | | | | 20 | my arm | + + + + + + | Valacyclovir | Nausea And Vomiting | Low | 03/12/19 | | | | | [...] Activ | | (NEURONTIN) 300 mg | 2 times daily . | | | | | e | | capsule | | | | | | | + + + +---------+------+------+-------+ | | Inhale 1 puff into | | 0 | | | Activ | | fluticasone-salmeter | the lungs 2 times | | | | | e | | ol (CORINE MARADIAGA | daily. | | | | | [...] e | + + + +---------+------+------+-------+ | potassium chloride | Take 20 mEq by mouth | | 0 | | | Activ | | (KLOR-CON) 10 MEQ | 2 times daily . | | | | | e | | ER tablet | | | | | | | + + + +---------+------+------+-------+ | dilTIAZem | Take 1 capsule by | 30 | 11 | 11/19 | | Activ | | (DILTIAZEM CD) 120 | mouth Daily. | capsule | | 320 | | e | | mg 24 hr capsule | | | | 20 | | | + + + +---------+------+------+-------+ | dilTIAZem | Take 1 capsule by | 30 | 11 | 02/ | 11/19 | Disco | | (CARDIZEM CD) 180 mg | mouth Daily. | capsule | | 4/20 | 3/20 | ntinu | | 24 hr capsule | | | | 20 | 20 | ed | | | | | | | | (Dose | | | | | | | | | | | | | | | | adjus | | | | | | | | tment | | | | | | | | ) | + + + +---------+------+------+-------+ | aspirin 325 MG EC | Take 1 tablet by | 360 | 0 | 07/0 | 10/21 | Disco | | tablet | mouth Daily. | tablet | | 11/08 | 03/10 | ntinu | | | | | | | 20 | ed | | | | | | | | (Ther | | | | | | | | apy | | | | | | | | compl | | | | | | | | eted) | + + + +---------+------+------+-------+ Active Problems + + + | Problem | Noted Date | + + + | 2nd degree AV block | 10/01/2019 | + + + | Risk factors for obstructive sleep apnea | 10/01/2019 | + + + | Premature atrial contractions | 04/14/2019 | + + + | 1st degree AV block | 04/14/2019 | + + + | HTN (hypertension) | 04/14/2019 | + + + | Nonrheumatic aortic valve insufficiency | 04/14/2019 | + + + | Moderate mitral regurgitation by prior echocardiogram | 04/14/2019 | + + + + + | Overview: Echo: 04/11/2019: EF 65%, LV normal in size with | | mild LVH and septal knuckle present, mild diastolic dysfunction. | | RV normal in size and function. Mild LAE. Sinus of Valsalva | | through ascending aorta normal caliber. IVC WNL. No evidence of | | pericardial effusion, fat pad present. No pleural effusion. | | Aortic valve trileaflet, mildly calcified, sclerosis without | | stenosis, mild to moderate AI. Mitral valve normal with mild | | MAC, mild to moderate MR. Mild TR with velocity 2.5 m/s, | | estimated PASP 25 mmHg, no pulmonary hypertension, RVSP 28 mmHg | | valve not well visualized, trace GA | + + + + + | Mild tricuspid regurgitation by prior echocardiogram | 04/14/2019 | + + + | Tachycardia | 03/12/2019 | + + + | Osteoporosis | | + + + | Frail elderly | | + + + + + | Overview: Age (born 1936) + Osteoporosis | + + + +---+ | GERD (gastroesophageal reflux disease) | | + +---+ | Asthma, mild intermittent | | + +---+ | Shingles | | + +---+ Resolved Problems + + + + | [...] Office | Cardiology | Alexander Darnell, | PAT (paroxysmal | | 2020 | Visit | | MD | atrial tachycardia) | | | | | | ([facility]) (Primary Dx); | | | | | | PSVT (paroxysmal | | | | | | supraventricular | | | | | | tachycardia) ([facility]); | | | | | | Mobitz type 1 second | | | | | | degree | | | | | | atrioventricular | | | | | | block; First degree | | | | | | AV block; Essential | | | | | | hypertension; 2nd | | | | | | degree AV block | +--------+ + + + + | 11/09/ | Virtual | Cardiology | Ana Cross | First degree AV | | 2019 | Office | | [address] | block (Primary Dx); | | | Visit | | | 2nd degree AV block; | | | | | | Tachycardia; | | | | | | Essential | | | | | | hypertension; Mild | | | | | | tricuspid | | | | | | regurgitation by | | | | | | prior | | | | | | echocardiogram; | | | | | | Moderate mitral | | | | | | regurgitation by | | | | | | prior | | | | | | echocardiogram; | | | | | | Nonrheumatic aortic | | | | | | valve insufficiency; | | | | | | Premature atrial | | | | | | contractions; Risk | | | | | | factors for | | | | | | obstructive sleep | | | | | | apnea; Palpitations; | | | | | | Hypokalemia | +--------+ + + + + | 11/05/ | Telephone | Cardiology | Ana Cross | Medication Question | | 2019 | | | [address] | | +--------+ + + + + | 10/29/ | Surgery | | Jason Steve, | RIGHT EXTRACTION | | 2019 | | | MD | CATARACT W/ OR W/O | | | | | | LENS IMPLANT | +--------+ + + + + | 10/29/ | Anesthesia | | Patrick García, | | | 2019 | Event | | MD | | +--------+ + + + + | 10/29/ | Hospital | | Jason Steve, | | | 2019 | Encounter | | MD | | +--------+ + + + + | 10/28/ | Telephone | Cardiology | Ana Cross | Medication Question | | 2019 | | | [address] | | +--------+ + + + + | 10/26/ | Telephone | Urgent Care | Mariah Ogden | Results | | 2019 | | | Stacia Wind Operations Supervisor | | +--------+ + + + + | 10/26/ | Orders Only | General Surgery | Jason Steve, | 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 | | | | | | eye (Primary Dx) | +--------+ + + + + | 10/24/ | Hospital | Urgent Care | | Pre-op testing | | 2019 | Encounter | | | (Primary Dx) | +--------+ + + + + | 10/21/ | Telephone | Cardiology | Ana Cross | Lab Results | | 2019 | | | [address] | | +--------+ + + + + | 10/16/ | Telephone | Cardiology | Ijeomamauro Ana | LABS | | 2019 | | | [address] | | +--------+ + + + + | 10/01/ | Surgery | | Jason Stvee, | LEFT EXTRACTION | | 2019 | | | MD | CATARACT W/ OR W/O | | | | | | LENS IMPLANT | +--------+ + + + + | 10/01/ | Anesthesia | | Ajay Ann MD | | | 2019 | Event | | | | +--------+ + + + + | 10/01/ | Hospital | | Jason Steve, | | | 2019 | Encounter | | MD | | +--------+ + + + + | 09/30/ | Office | Cardiology | Ana Cross | Tachycardia (Primary | | 2020 | Visit | | [address] | Dx); First degree | | | | | | AV block; Essential | | | | | | hypertension; Mild | | | | | | tricuspid | | | | | | regurgitation by | | | | | | prior | | | | | | echocardiogram; | | | | | | Moderate mitral | | | | | | regurgitation by | | | | | | prior | | | | | | echocardiogram; | | | | | | Nonrheumatic aortic | | | | | | valve insufficiency; | | | | | | Premature atrial | | | | | | contractions; 2nd | | | | | | degree AV block; | | | | | | Risk factors for | | | | | | obstructive sleep | | | | | | apnea; Hypokalemia; | | | | | | Palpitations | +--------+ + + + + | 09/29/ | Orders Only | General Surgery | Jason Steve, | Nuclear sclerotic | | 2019 | | | 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 left eye | | | | | | (Primary Dx) | +--------+ + + + + | 09/26/ | Clinical | Immediate Care | Nadeen, | Pre-op testing | | 2020 | Support | | Jaime Garcia MD | (Primary Dx) | +--------+ + + + + | 09/17/ | Documentati | Cardiology | Raghu Montilla, | Other ([employer] | | 2019 | on | | Technologist | Alert) | +--------+ + + + + | 09/16/ | Telephone | Cardiology | Ana Cross | Patient Concerns | | 2019 | | | [address] | | +--------+ + + + + | 09/16/ | Telephone | Cardiology | Betty Novoa, | Weakness; Emesis | | 2019 | | | RN | | +--------+ + + + + | 09/15/ | Documentati | Cardiology | Raghu Montilla, | Other ([employer] | | 2019 | on | | [...] (urgent | | 2020 | on | | Technologist | report) | +--------+ + + + + from [...] | Height | 152.4 cm (5') | 11/10/2019 11:08 AM | | | [...] [place], | | | | | | [place] [address] | | | | | | [phone] | | | | | | | | +--------+ + + + + | 03/18/ | Office | Cardiology | [facility] | | | 2020 | Visit | | [address] | | | | | | [address] | | | | | | [place] [address] | | | | | | [phone] | | | | | | | [...] | | | + + +-------+ + Implants + +--------+------+ +--------+--------+--------+ | Implanted | Type | Area | Manufacture | Device | Shelf | Model | | | | | r | | Expira | / | | | | | | Identi | tion | Serial | | | | | | fier | Date | / Lot | + +--------+------+ +--------+--------+--------+ | Lens Tecnis Preloaded Pcb | Generi | | SAHNI | | 03/21/ | [id number] | | 22.0 - [id number]: | c | | MEDICAL | | 2020 | 219 | | Qty: 1 on 10/02/2019 by | | | [employer] - | | | /[id number] | | Jason Steve MD at [facility] | | | [place] | | | [address] | | [facility] | | | | | | / | | CENTER | | | | | | | + +--------+------+ +--------+--------+--------+ | Lens Tecnis Preloaded Pcb | Generi | | SAHNI | | 03/21/ | [id number] | | 22.0 - [id number]: | c | | MEDICAL | | 2022 | 0220 | | Qty: 1 on 10/30/2019 by | | | [employer] - | | | /[id number] | | Jason Steve MD at [facility] | | | [place] | | | [address] | | [facility] | | | | | | / | | CENTER | | | | | | | + +--------+------+ +--------+--------+--------+ Procedures + +--------+ + + + | Procedure Name | Priori | Date/Time | Associated Diagnosis | Comments | | | ty | | | | + +--------+ + + + | LABS - EXTERNAL SCAN | | 11/06/2019 | | Results for this | | | | 12:00 AM | | procedure are in the | | | | PDT | | results section. | + +--------+ + + + | EXTRACTION CATARACT | | 10/30/2019 | Age-related | | | W/ OR W/O LENS | | 11:27 AM | nuclear cataract, | | | IMPLANT | | PDT | right eye | | + +--------+ + + + | CORONAVIRUS | Routin | 10/25/2019 | Pre-op testing | Results for this | | (COVID-19) NAAT | e | 7:31 AM | | procedure are in the | | | | PDT | | results section. | + +--------+ + + + | LABS - EXTERNAL SCAN | | 10/15/2019 | | Results for this | | | | 12:00 AM | | procedure are in the | | | | PDT | | results section. | + +--------+ + + + | EXTRACTION CATARACT | | 10/02/2019 | Age-related | | | W/ OR W/O LENS | | 10:26 AM | nuclear cataract, | | | IMPLANT | | PDT | left eye | | + +--------+ + + + | ECG 12 LEAD | Routin | 10/01/2019 | Tachycardia | Results for this | | | e | 2:24 PM | | procedure are in the | | | | PDT | | results section. | + +--------+ + + + | CORONAVIRUS | Routin | 09/27/2019 | Pre-op testing | Results for this | | (COVID-19) NAAT | e | 7:17 AM | | procedure are in the | | | | PDT | | results section. | + +--------+ + + + from Last 3 Months Results LABS - EXTERNAL SCAN (11/06/2019 12:00 AM PDT)Only the most recent of 2 results within the time period is included. + + + | Narrative | Performed At | + + + | Ordered by an | | | unspecified provider. | | + + + Coronavirus (COVID-19) NAAT (10/25/2019 7:31 AM PDT)Only the most recent of 2 results with in the time period is included. + + + + + + | [...] assay.This | | | | | | nucleic acid | | | | | | amplification test was | | | | | | developed and its | | | | | | performancecharacteristi | | | | | | cs determined by [facility] | | | | | | Laboratories. Nucleic | | | | | | acidamplification tests | | | | | | include PCR and TMA. | | | | | | This test has not been | | | | | | FDAcleared or approved. | | | | | | This test has been | | | | | | authorized by FDA under | | | | | | anEmergency Use | | | | | | Authorization (EUA). | | | | | | This test is only | | | | | | authorized forthe | | | | | | duration of time the | | | | | | declaration that | | | | | | circumstances | | | | | | existjustifying the | | | | | | authorization of the | | | | | | emergency use of in | | | | | | vitrodiagnostic tests | | | | | | for detection of | | | | | | SARS-CoV-2 virus and/or | | | | | | diagnosisof COVID-19 | | | | | | infection under section | | | | | | 564(b)(1) of the Act, 21 | | | | | | U.S.C.360bbb-3(b) (1), | | | | | | unless the authorization | | | | | | is terminated or | | | | | | revokedsooner.When | | | | | | diagnostic testing is | | | | | | negative, the | | | | | [...] + + | Performed at: 01 - [facility] [address], | REFERENCE LAB | | [place], [place] [id number] Silver Wrapper: Geovany Yost MD, Phone: | [facility] | | [phone] | | + + + + + + + + | Performing | Address | City/State/Zipcode | Phone Number | | Organization | | | | + + + + + | REFERENCE LAB | [address] | [place], [place] | [phone] | | [facility] | [place] | [address] | | + + + + + ECG 12 lead (10/01/2019 2:24 PM PDT) + + + + + + | Component | Value | Ref Range | Performed | Pathologist | | | | | At | Signature | + + + + + + | VENTRICULAR | 106 | BPM | [facility] | | | RATE EKG | | | | | + + + + + + | ATRIAL RATE | 106 | BPM | [facility] | | + + + + + + | P-R | 278 | ms | [facility] | | | INTERVAL | | | | | + + + + + + | QRS | 52 | ms | [facility] | | | DURATION | | | | | + + + + + + | Q-T | 276 | ms | [facility] | | | INTERVAL | | | | | + + + + + + | Q-T | 366 | ms | [facility] | | | INTERVAL | | | | | | (CORRECTED) | | | | | + + + + + + | P WAVE AXIS | 57 | degrees | [facility] | | + + + + + + | QRS AXIS | 109 | degrees | [facility] | | + + + + + + | T AXIS | 22 | degrees | [facility] | | + + + + + + | INTERPRETAT | Sinus tachycardia with | | [facility] | | | ION TEXT | 1st degree A-V | | | | | | blockRightward axisLow | | | | | | voltage QRSNonspecific | | | | | | ST and T wave | | | | | | abnormalityAbnormal | | | | | | ECGWhen compared with | | | | | | ECG of 28-AUG-2019 | | | | | | 14:50,QRS axis Shifted | | | | | | rightNon-specific change | | | | | | in ST segment in | | | | | | Inferior leadsConfirmed | | | | | | by ANA JARAMILLO | | | | | | ([id number]) on 10/01/2019 | | | | | | 5:02:23 PMAlso confirmed | | | | | | by MAURO HUGHES MD | | | | | | ([id number]) on 10/02/2019 | | | | | | 3:14:20 PM | | | | + + [...] | | | + +---------+ + + from Last 3 Months Insurance [...] +--------+ +---------+--------+ | MEDICARE | MEDICA | [id number] | 05/21/19 | [phone] | | Medica | | | RE | | 01-Pre | 5 | | re | | | PART A | | sent | | | | | | AND B | | | | | | + +--------+ +--------+ +---------+--------+ | MEDICARE | MEDICA | [id number] | 05/21/19 | [phone] | | Medica | | | RE | | 01-Pre | 5 | | re | | | PART A | | sent | | | | | | AND B | | | | | | + +--------+ +--------+ +---------+--------+ | CIGNA | CIGNA | [id number] | 09/26/19 | [phone] | | Indemn | | | MDCR | | 20-Pre | 1 | | ity | | | SUPPLE | | sent | | | | | | MENT | | | | | | | | SOLUTI | | | | | | | | ONS | | | | | | + +--------+ +--------+ +---------+--------+ | CIGNA | CIGNA | [id number] | | [phone] | | Indemn | [...] | Self | [birth year] | [address] | | Jennifer | angus/Pito | | 1936 | [phone] | [place] | | | [place] | | | [address] (Home) | [phone] | + +--------+ +--------+ + + | Kae Jeter | Person | Self | [birth year] | [address] | | Jennifer | al/Fam | | 1936 | [phone] | [place] | | | [place] | | | [address] ([place]) | [address] | + +--------+ +--------+ + + Advance Directives + + + + + | Type | Date Recorded | Patient | Explanation | | | | Tube Teller | | + + + + + | Power of | | | | | Outside Plant Cable Engineer | | | | + + + + + | Advance | 10/30/2019 8:25 | | | | Directive | AM | | | + + + + + + + + + + | Code Status | Date | Date | Comments | | | Activated | Inactivated | | + + + + + | Full Code | 10/30/2019 | 10/30/2019 | | | | 11:57 AM | 2:37 PM | | + + + + + + + + +---+ | | | | | + + + +---+ | Full Code | 10/02/2019 | 10/02/2019 | | | | 11:04 AM | 1:40 PM | | + + + +---+"
--- OUTSIDE RECORDS SUMMARY | ~2019-12-09 | XMS | Encounter Summary ---
Demographics + + + | Address | [address] | | | [place] [address] | + + + | Home Phone | | + + + | Preferred Language | Unknown | + + + | Marital Status | | + + + | Judaism Affiliation | Unknown | + + + | Race | White | + + + | Ethnic Group | Not or | + + + Author + + + | Author | [facility] | | | and [place] | + + + | Organization | [facility] | | | and [...] Team Providers + +------+ + | Care Cycle Touring Guide Name | Role | Phone | + +------+ + | Jaz Desir | PCP | | | PA-C | | | + +------+ + Reason for Visit +---------+--------+ + | Reason | Onset | Comments | | | Date | | +---------+--------+ + | Testing | 09/08/ | | | | 2020 | | +---------+--------+ + Encounter Details +--------+ + + + + | Date | Type | Department | Care Team | Description | +--------+ + + + + | 09/08/ | Telephone | [facility] | Ana Cross | Testing | | 2020 | | CARDIOLOGY CLAIRE | [address] | | | | | [address] | [address] | | | | | [address] | [place] [address] | | | | | [address] | [phone] | | | | | [phone] | | | +--------+ + + + [...] encounter Miscellaneous Notes Telephone Encounter - Ana Cross FNP - 09/09/2019 4:35 PM PDTI called and left a message with her daughter Briseida to stop her digoxin for bradycardia and 2nd degree AV bloc k per Dr. Auguste who received alert from her event monitor documented in this encounter Plan of Treatment [...] | | | | | | [place] [address] | | | | | | [phone] | | | | | | | | +--------+ + + + + | 03/18/ | Office | Cardiology | Ana Cross | | | 2020 | Visit | | [address] | | | | | | [address] | | | | | | [place] [address] | | | | | | [phone] | | | | | | | | +--------+ + + + + documented as of this encounter Visit Diagnoses Not on filedocumented in this encounter"
--- OUTSIDE RECORDS SUMMARY | ~2019-12-09 | XMS | Encounter Summary ---
Demographics + + + | Address | [address] | | | [place] [address] | + + + | Home Phone | | + + + | Preferred Language | Unknown | + + + | Marital Status | | + + + | Voodoo Affiliation | Unknown | + + + | Race | White | + + + | Ethnic Group | Not or | + + + Author + + + | Author | [facility] | | | and [place] | + + + | Organization | [facility] | | | [...] Team Providers + +------+ + | Care Blue Print Control Clerk Name | Role | Phone | + +------+ + | Jaz Desir | PCP | | | PA-C | | | + +------+ + Encounter Details +--------+ + + + + | Date | Type | Department | Care Team | Description | +--------+ + + + + | 10/29/ | Anesthesia | [facility] | Patrick García, | | | 2019 | Event | [facility] | [address] | | | | | [address] | [place] | | | | | [place] | [address] | | | | | [address] | | | | | | [phone] | | | +--------+ + + + + Anesthesia Record + + + + + | Procedure Name | Responsible | Anesthesia Start | Anesthesia Stop Time | | | Anesthesiologist | Time | | + + + + + | RIGHT EXTRACTION | Patrick García MD | 10/30/19 1126 | 10/30/19 1202 | | CATARACT W/ OR W/O | | | | | LENS IMPLANT (Right | | | | | Eye) | | | | + + + + + +----+---+ + + | Da | T | Event | Comment | | te | i | | | | | m | | | | | e | | | +----+---+ + + | 09 | 1 | | | | /1 | 1 | | | | 0/ | 2 | | | | 20 | 5 | | | | 20 | | | | +----+---+ + + | | 1 | An Start | Reassessment prior to anesthesia induction/procedure. | | | 1 | | | | | 2 | | | | | 6 | | | +----+---+ + + | | 1 | An Checkout | Pre-use anesthesia machine/equipment checkout. | | | 1 | | | | | 2 | | | | | 7 | | | +----+---+ + + | | 1 | Pre-Procedu | | | | 1 | ral Timeout | | | | 2 | Completed | | | | 8 | | | +----+---+ + + | | 1 | An | | | | 1 | Induction | | | | 3 | | | | | 0 | | | +----+---+ + + | | 1 | Anesthesia | | | | 1 | Ready | | | | 3 | | | | | 2 | | | +----+---+ + + | | 1 | Breathing | | | | 1 | Spontaneous | | | | 3 | ly | | | | 7 | | | +----+---+ + + | | 1 | First | | | | 1 | Inc/Proc St | | | | 4 | | | | | 0 | | | +----+---+ + + | | 1 | an stop | | | | 1 | data | | | | 5 | | | | | 5 | | | +----+---+ + + | | 1 | An Stop | Patient handed off to recovery nurse. | | | 0 | | | | | 2 | | | +----+---+ + + +------+ | Meds | +------+ + +--------+ | Name | Total | + +--------+ | propofol | 40 mg | + +--------+ | lidocaine 2% | 40 mg | + +--------+ | lactated ringers (LR) infusion | 700 mL | + +--------+ + + | Name | + + | N2O Flow Rate (L/Min) | + + | O2 Flow Rate (L/Min) | + + | Insp O2 | + + | Air Flow Rate (L/Min) | + + + + | No blood administrations on file. | + + +--------+ + + + | Type | Details | Placement | Removal | +--------+ + + + | Wound | 10/02/19; 1039; Incision; Left; | 10/02/19 1039 by | 10/30/19 1205 by | | | eye; 10/30/19; 1205 | Aurora Schuster, | Arianne Molina, | | | | RN | RN | +--------+ + + + | Periph | 10/30/19; 0959; Right; Forearm; | 10/30/19 0959 by | 10/30/19 1226 by | | halina | cllo-cti-ravptc catheter system; | Mily Canseco, | Arianne Molina, | | IV | 20 gauge, 1 1/4 in length; | RN | RN | | | intradermal injection, tolerated | | | | | well; no longer indicated; | | | | | 10/30/19; 1226 | | | +--------+ + + + | Wound | 10/30/19; 1144; Incision; Right; | 10/30/19 1144 by | 10/30/19 1226 by | | | eye; Healing; 10/30/19; 1226 | Aurora Schuster, | Arianne Molina, | | | | RN | RN | +--------+ + + + documented in this encounter Social History + +-------+ +--------+------+ | Tobacco [...] + + documented as of this encounter OR Notes Anesthesia Postprocedure Evaluation - Patrick García MD - 10/30/2019 12:26 PM PDTFormyolai marlee of this note might be different from the original. ANESTHESIA POSTANESTHESIA EVALUATION Kaefely Rodriguez Corona 84 y.o. female 1935 [id number] Procedure(s) RIGHT EXTRACTION CATARACT W/ OR W/O LENS IMPLANT (Right Eye) Cooperates? Yes Mental Status Performs simple tasks. Respiratory Satisfactory - Airway patent (self maintained). Cardiovascular Satisfactory - Blood pressure and heart rate acceptable Temperature Satisfactory Pain Satisfactory N/V Control Satisfactory Hydration Satisfactory - No signs of dehydration Adverse Events ADVERSE EVENTS: No adverse events Vitals Value Taken Time Temp 36.4 C (97.5 F) 10/30/19 1201 Pulse 74 10/30/19 1221 Resp 16 10/30/19 1201 BP 141/77 10/30/19 1220 Arterial Line BP Arterial Line BP 2 SpO2 95 % 10/30/19 1221 Vitals shown include unvalidated device data. Electronically signed by Patrick García MD 10/30/2019 12:26 PM PDT [facility] Patrick García MD at 10/20 12:26 PM PDTAnesthesia Preprocedure Evaluation - Patrick García MD - 10/29/2019 11: 24 AM PDT ANESTHESIA PREANESTHESIA EVALUATION Kae Jeter 84 y.o. female 1935 [id number] Procedure(s): RIGHT EXTRACTION CATARACT W/ OR W/O LENS IMPLANT (Right Eye) Medical,anesthesia, drug, allergy histories reviewed, NPO status verified. Labs reviewed. Review of Systems / Med History Anesthesia History Past Medical History: No date: 1st degree AV block No date: Asthma, mild intermittent No date: Diverticula of colon No date: GERD (gastroesophageal reflux disease) 04/14/2019: HTN (hypertension) No date: Hyperlipidemia No date: Osteoporosis No date: Wears dentures Comment: Full upper. No anesthesia complications except where noted below. Cardiovascular Negative except where noted below. (+) hypertension and essential (+) Dysrhythmias: (+) valvular problems/murmurs : MR . Pulmonary Negative except where noted below.(+) asthma. Gastrointestinal/Hepatic (+) acid reflux. Physical Exam Airway MP I, TM >3 FB, Mouth opening >2 FB. Neck: full ROM, extends >30 degrees. Jaw protrusi on normal. Facial hair present: No Dental (+) dentures-upper. CV cardiovascular normal Pulm Clear to auscultation bilaterally. Neuro grossly normal. Anesthesia Plan ASA: 2 Type: MAC. Induction: Intravenous. Potential problems: None anticipated. Monitors: Standard ASA monitors. Consent statement: Anesthetic plan, alternatives, risks and benefits discussed with patient and family. drug r eaction, heart problems, perioperative CV events, respiratory events Consenting person understands and agrees to proceed. PARQ. Electronically Signed by: Patrick García MD ESig date/time: 10/29/2019 11:24 AM PDT documented in this en counter Miscellaneous Notes Anesthesia Post-op Handoff - Patrick García MD - 10/30/2019 12:01 PM PDTFormatting of thi s note might be different from the original. ANESTHESIA HANDOFF NOTE Kae Jeter 84 y.o. female 1935 [id number] RIGHT EXTRACTION CATARACT W/ OR W/O LENS IMPLANT (Right Eye) HANDOFF NOTE Handoff Protocol Used: post-procedure handoff checklist completed The following were completed during the transfer of care: 1. Identification of patient 2. Identification of responsible practitioner (primary service) 3. Discussion of pertinent medical history 4. Discussion of the surgical/procedure course (procedure, reason for surgery, procedure pe rformed) 5. Intraoperative anesthetic management and issues/concerns 6. Expectations/plans for the early post-procedure period 7. Opportunity for questions and acknowledgement of understanding of report from receiving team Patient Location: Phase II Condition: alert and awake Airway/O2: no supplemental O2 Multimodal analgesia: multimodal analgesia used between 6 hours prior to anesthesia start t o PACU discharge The significant anesthesia concerns and VS in Epic were reviewed with the receiving team. Patrick García MD 10/30/2019 12:01 PM PDT [facility] signed by Patrick García MD at 10/20 12:01 PM PDTdocumented in this encounter Plan of [...] [place], | | | | | | [place] [address] | | | | | | [phone] | | | | | | | | +--------+ + + + + | 03/18/ | Office | Cardiology | [facility] | | | 2020 | Visit | | [address] | | | | | | [address] | | | | | | [place] [address] | | | | | | [phone] | | | | | | | | +--------+ + + + + documented as of this encounter Visit Diagnoses Not on filedocumented in this encounter Administered Medications + +---------+ +------+------+------+ | Medication Order | MAR | Action | Dose | Rate | Site | | | Action | Date | | | | + +---------+ +------+------+------+ | lactated ringers (LR) infusion | New Bag | 10/30/19 | | | | | at 10-100 mL/hr, Intravenous, | | 20 11:32 | | | | | CONTINUOUS, Starting Jackie 10/30/19 | | AM PDT | | | | | at 0945, TKO., Pre-op | | | | | | + +---------+ +------+------+------+ +---+---+ | | | +---+---+ + +-------+ +-------+---+---+ | lidocaine (PF) 2% injection | Given | 10/30/19 | 40 mg | | | | Intravenous, PRN, Starting Jackie | | 20 11:32 | | | | | 10/30/19 at 1132, Anesthesia | | AM PDT | | | | | Intra-op | | | | | | + +-------+ +-------+---+---+ +---+---+ | | | +---+---+ + +-------+ +-------+---+---+ | propofol (DIPRIVAN) injection | Given | 10/30/19 | 40 mg | | | | Intravenous, PRN, Starting Jackie | | 20 11:32 | | | | | 10/30/19 at 1132, Anesthesia | | AM PDT | | | | | Intra-op | | | | | | + +-------+ +-------+---+---+ +---+---+ | | | +---+---+ documented in this encounter"
--- OUTSIDE RECORDS SUMMARY | ~2019-12-09 | XMS | Encounter Summary ---
Demographics + + + | Address | [address] | | | [place] [address] | + + + | Home Phone | | + + + | Preferred Language | Unknown | + + + | Marital Status | | + + + | Congregational Affiliation | Unknown | + + + | Race | White | + + + | Ethnic Group | Not or | + + + Author + + + | Author | [facility] | | | and [place] | + + + | Organization | [facility] | | | [...] Team Providers + +------+ + | Care Slitter And Cutter Operator Name | Role | Phone | + +------+ + | Jaz Desir | PCP | | | PA-C | | | + +------+ + Reason for Visit +--------+--------+ + | Reason | Onset | Comments | | | Date | | +--------+--------+ + | LABS | 10/16/ | | | | 2020 | | +--------+--------+ + Encounter Details +--------+ + + + + | Date | Type | Department | Care Team | Description | +--------+ + + + + | 10/16/ | Telephone | [facility] | [facility] | LABS | | 2020 | | CARDIOLOGY [place] | [address] | | | | | [address] | [address] | | | | | [place], [place] | [place] [address] | | | | | [address] | [phone] | | | | | [phone] | | | +--------+ + + + [...] this encounter Miscellaneous Notes Telephone Encounter - Nancy Branham CMA - 10/17/2019 11:07 AM PDTPatient called to let us know she got labs drawn on 10/15/19, she said Ana Espinoza wanted to know because sometimes [facility] does not send over results. I call [facility] to have them send us results. Electron aniket signed by Nancy Branham CMA at 10/17/2019 11:12 AM PDTdocumented in this encounter Plan of [...] | | | | | | [place] [address] | | | | | | [phone] | | | | | | | | +--------+ + + + + | 03/18/ | Office | Cardiology | [facility] | | | 2020 | Visit | | [address] | | | | | | [address] | | | | | | [place] [address] | | | | | | [phone] | | | | | | | | +--------+ + + + + documented as of this encounter Visit Diagnoses Not on filedocumented in this encounter"
--- OUTSIDE RECORDS SUMMARY | ~2019-12-09 | XMS | Encounter Summary ---
Demographics + + + | Address | [address] | | | [place] [address] | + + + | Home Phone | | + + + | Preferred Language | Unknown | + + + | Marital Status | | + + + | Hindu Affiliation | Unknown | + + + | Race | White | + + + | Ethnic Group | Not or | + + + Author + + + | Author | [facility] | | | and [place] | + + + | Organization | [facility] | | | [...] Team Providers + +------+ + | Care Communication Center Coordinator Name | Role | Phone | + +------+ + | Jaz Desir | PCP | | | PA-C | | | + +------+ + Encounter Details +--------+---------+ + + + | Date | Type | Department | Care Team | Description | +--------+---------+ + + + | 10/01/ | Surgery | [facility] | Power Aries S, | LEFT EXTRACTION | | 2019 | | MED CTR OR INTRA OP | MD [address] | CATARACT W/ OR W/O | | | | [address] | [place] | LENS IMPLANT | | | | [place], [place] | [address] | | | | | [address] | | | | | | [phone] | | | +--------+---------+ + + + [...] walking, reading, watching TV, working on the [employer], shaving, bathing, or shampooing your hair. Do [...] Lewis, M D [address] | [place] [address] | P: [phone] | F: [phone] | [email or web address] documented in this encounter Medications at Time [...] + documented as of this encounter H&P Aries Howard MD - 10/02/2019 10:15 AM PDTSURGICAL INTERIM HISTORY & PHYSICAL UPDATE Pt. Name/Age/: Kae Jeter 84 y.o. 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 Anterior chambers [...] Transcribed on 09/30/2019 16:26:17 by mikel job# [id number] Confirmation #: [id number] signed by Aries Sena MD at 10/02/2019 [...] | | | | | | [place] [address] | | | | | | [phone] | | | | | | | | +--------+ + + + + | 03/18/ | Office | Cardiology | [facility] | | | 2020 | Visit | | [address] | | | | | | [address] | | | | | | [place] [address] | | | | | | [phone] | | | | | | | [...] | + + | Age-related nuclear cataract, left eye | + + documented in this [...] | | | | First dose on Sun10/02/19 at | | | | | | | 0930, For 2 doses, Pre-op | | | | | | + +-------+ +--------+---+---+ +---+---+ | | | +---+---+ + +-------+ + +---+---+ | balanced salts sterile | Given | 10/02/19 | 1 | | | | ophthalmic irrigation solution | | 20 10:40 | Applicat | | | | PRN, Starting Sun10/02/19 at | | AM PDT | ion | | | | 1040, Intra-op | | | | | | + +-------+ + +---+---+ +---+---+ | | | +---+---+ + +-------+ [...] | | | | | | | [facility] 10/02/19 at 0902, For 3 | | [...] glucose < 50, | | | Starting [facility] 10/02/19 at 0902, | | | Repeat in 15 min if blood glucose | | | remains < 70 mg/dL. Repeat | | | blood glucose in 30 min once | | | blood glucose > 70., Pre-op | | + +---+ | | | + +---+ + +-------+ +--------+---+ + | EPINEPHrine 1 mg/mL injection | Given | 10/02/19 | 0.4 mg | | Eye-Left | | PRN, Starting Jackie 10/02/19 at | | 20 10:40 | | | | | 1040, Intra-op | | AM PDT | | [...] | hyaluronate & chondroitin | Given | 10/02/19 | 1 kit | | | | hyaluronate (DUOVISC) intraocular | | 20 10:41 | | | | | kit PRN, Starting Sun10/02/19 | | AM PDT | | | | | at 1041, Intra-op | | | | | | + +-------+ +-------+---+---+ +---+---+ | | | +---+---+ + + [...] lidocaine (PF) 2% injection | Given | 10/02/19 | 3 mLs | | Eye-Left | | PRN, Starting Jackie 10/02/19 at | | 20 10:41 | | | | | 1041, Intra-op | | AM PDT | | | | + +-------+ +-------+---+ + +---+---+ | | | +---+---+ + +-------+ +--------+---+ + | moxifloxacin (VIGAMOX) 0.5 % | Given | 10/02/19 | 0.5 mg | | Eye-Left | | intracameral injection PRN, | | 20 10:41 | | | | | Starting [facility] 10/02/19 at 1041, | | AM PDT | | | [...] | | | | | | Starting [facility] 10/02/19 at 0902, For | | [...] povidone-iodine 5 % ophthalmic | Given | 10/02/19 | 1 drop | | | | solution PRN, Starting Jackie | | 20 10:36 | | | | | 10/02/19 at 1036, Intra-op | | AM PDT | | [...] + | triamcinolone acetonide | Given | 10/02/19 | 5 mg | | Eye-Left | | (KENALOG-10) 10 mg/mL injection | | 20 10:41 | | | | | PRN, Starting [facility] 10/02/19 at | | AM PDT | | | | | 1041, Intra-op | | | | | | [...] | | | | | | | [facility] 10/02/19 at 0902, For 3 | | [...]
--- OUTSIDE RECORDS SUMMARY | ~2019-12-09 | XMS | Encounter Summary ---
Demographics + + + | Address | [address] | | | [place] [address] | + + + | Home Phone | | + + + | Preferred Language | Unknown | + + + | Marital Status | | + + + | Religion Affiliation | Unknown | + + + [...] Team Providers + +------+ + | Care Douper Name | Role | Phone | + +------+ + | Jaz Desir | PCP | | | PA-C | | | + +------+ + Reason for Referral Evaluate & Treat (Routine) + + + + + + + | Status | Reason | Specialty | Diagnoses / | Referred By | Referred To | | | | | Procedures | Contact | Contact | + + + + + + + | Authorized | Specialty | Sleep | Diagnoses | [place], | [facility], | | | Services | Medicine | Tachycardia | Ana Espinoza, | David Maldonado MD | | | Required | | First | ELECT[employer] IN[employer] | [address] | | | | | degree AV | [address] | [facility] | | | | | block Risk | [address] | [place] [address] | | | | | factors for | [place], [place] | [address] | | | | | obstructive | [address] | [place], [place] | | | | | sleep apnea | Phone: | [phone] Phone: | | | | | | [phone] | [phone] | | | | | Palpitations | Fax: | Fax: | | | | | | [phone] | [phone] | + + + + + + + Reason for Visit + + + | Reason | Comments | + + + | Follow-up | Hospital | + + + Encounter Details +--------+---------+ + + + | Date | Type | Department | Care Team | Description | +--------+---------+ + + + | 09/30/ | Office | [facility] | Ana Cross | Tachycardia (Primary | | 2020 | Visit | CARDIOLOGY [place] | [address] | Dx); First degree | | | | [address] | [address] [address] | AV block; Essential | | | | [address], [place] | [place] [address] | hypertension; Mild | | | | [address] | [phone] | tricuspid | | | | [phone] | | regurgitation by | | | [...] | | | | | Palpitations | +--------+---------+ + + + Social History [...] + + + | Blood Pressure | 106/60 | 10/01/2019 2:04 PM | | | | | PDT | | + + + + + | Pulse | 103 | 10/01/2019 2:04 PM | | | | | PDT | | + + + + + | Temperature | 36.7 C (98 F) | 10/01/2019 2:04 PM | | | | | PDT | | + + + + + | Respiratory Rate | - | - | | + + + + + | Oxygen Saturation | 95% | 10/01/2019 2:04 PM | | | | | PDT | | + + + + + | Inhaled Oxygen | - | - | | | Concentration | | | | + + + + + | Weight | 51.8 kg (114 lb 4.8 | 10/01/2019 2:04 PM | | | | oz) | PDT | | + + + + + | Height | 152.4 cm (5') | 10/01/2019 2:04 PM | | | | | PDT | | + + + + + | Body Mass Index | 22.32 | 10/01/2019 2:04 PM | | | | | PDT | | + + + + + documented in this encounter Patient Instructions Patient Instructions Ana Cross FNP - 10/01/2019 2:00 PM PDTPlease bring your m edication bottles to all clinic visits to help us maintain safe care for you, and ensure acc urate medication record I have referred you to Dr. Nogueira at [facility] , call [phone] for an appoi ntment next week Get non fasting labs done in 2 weeks at [facility] , and I will see if need to decrease pota ssium dose Have Briseida Call me 2 days after get labs done , so I can make sure I get results from Int erpath See Dr. Darnell as scheduled in December 01 in [place] No changes to medications today, and continue to hold chlorthalidone and stopped digoxin I will see if I can cancel telephone visit on Nov 09 ,after labs, but will keep for now documented in this encounter Progress Notes Ana Cross FNP - 10/01/2019 2:00 PM PDTFormatting of this note might be differe nt from the original. Date of visit: 10/01/2019 Primary Care Physician: Jaz Desir PA-C CHIEF COMPLAINT: Chief Complaint Patient presents with Follow-up Hospital HISTORY OF PRESENT ILLNESS: Ms. Kae Jeter is an 84 year old woman who is here today to follow up on her even t monitor, plus emergency room admission on September 16 at [facility] She is accompanied today by her other daughter , as Briseida who is primary industrial maintenance mechanic not a vailable, and she contributed to history,as her mother is very frail, and also has a hearin g deficit. Today, I reviewed all previous documentation available to me in electronic medical akil rds and from external sources. She is a patient of Dr. Auguste and last seen by him 03/12/2019 for consultation on pos sible atrial fibrillation, and will be transferring care to Dr. Darnell in November so can be se en closer to home. She has a history of fast and irregular heart rate, PAC's, and first and second-degree AV block hypertension , and asthma, and severe osteoporosis and arthritis . She had been consulted by Dr. Auguste for concern of atrial fib and he noted her EKG and e vent monitor showed her rhythm was sinus tachycardia, sinus arrhythmia with frequent PAC's, and noted first-degree AV block made the P waves merges with the T waves. He felt there was no indication for anticoagulation. He recommended an echocardiogram and Cardizem 120 mg once a day. Her current and previous testing and procedures are detailed below. I saw her first on April 14, 2019 when I followed up with her about her Echo, which i s detailed below, and increased her Cardizem to 180 mg daily for ongoing sinus tachycardia. I saw her again on July 07, 2019 when I added digoxin 125 mcg to her medications to help with rate control, and ordered a BMP, TSH and digoxin level to be done in 1 month. I called her daughter Briseida on August 18, 2019 as her labs had shown severe hypokalemia at 2.8, but a normal TSH and renal function, and started her on 20 mEq of potassium twice kevin y. Her digoxin level had not been performed, so when I ordered a repeat BMP to follow-up on her severe hypokalemia, I had the lab also perform a digoxin level. When I called her daughter on August 17, she reported her mother was feeling quite weak. I r eceived notification from her coil inspector, Dr. Steve about her possible atrial fib, an d for cardiac risk evaluation for cataract surgery on August 20. I saw her last on August 27 to follow-up on reports from her coil inspector that she may have atrial fibrillation and ordered her a 2-week event monitor, her EKG at that time had shown a sinus rhythm with prolonged first-degree AV block but no atrial fib or flutter. Her labs performed on August 25 after she had been on potassium 20 mEq twice daily had shown a normal po tassium of 4.4. Alert from her event monitor on September 07 for bradycardia and second-degree AV block and Dr. Auguste had recommended stopping digoxin, and I called her daughter on September 08 and told her to stop the digoxin. She continued to have urgent reports on September 10 and for second-degree AV block with 2-1 conduction with heart rates dropping into the 40's primarily at night during at midnight, 2 AM , 4:50 AM. Daughter called again on September 16 saying her mother continues to be weak had not had an a ppetite, and had ongoing nausea and vomiting, and I spoke to her and encouraged her daughter to take her to the emergency room, as her hypokalemia was likely worsened by her nausea and vomiting. I had told her to stop her Cardizem as well prior to going to the emergency room. She was seen in the emergency room on September 16 at 1230 and I reviewed records today which do cument last dose of diltiazem was on September 15 that she had been progressively weaker she had no chest pain no lower extremity pain or swelling or no fever or cough. EKG reviewed by me showed sinus rhythm with degree AV block with 2-1 conduction, and Q wav es leads III and aVR ,aVF at 90 bpm Her labs done on admission showed a very low potassium of 2.5 with normal renal function and elevated glucose of 131 and troponin T less than 0.010. It noted that her heart rate wa s in the 90's and 120's when she was there and she gave her diltiazem 180 mg in the emergenc y room and her heart rate decreased to 105. Potassium supplemented with both intravenous an d oral potassium chlorthalidone stopped. Her TSH was also checked in the emergency room and it was 1.6 Today Kae reports that she has felt much improved with increased potassium, and her la bs performed on September 28 show a potassium of 4.7, and she has remained off chlorthalidone w ith only trace lower extremity edema. I had previously told her to stop her chlorthalidone when I saw her last, he had been off it for 1 week without any increase to her lower extremity edema. Her heart rate remains in the low 100's, but she seems symptomatically much improved. She denies any palpitations, chest pain, lightheadedness, or syncope, or any signs or symptoms o f stroke or TIA. She is planning on having her cataract surgery at [place], and went through pre-op scree selina on Sunday. She exercises minimally due to limited mobility and walker. She denies any smoking history, drink 2 servings of tea lately ,and drinks a beer every 2 -3 month, and denies use of recreational or illicit drugs . She did not Bring her medications with her, and reviewed her pharmacy dispense record wi th her and requested she bring it to the next clinic visit. REVIEW OF SYSTEMS: Negative except for pertinent [...] color change. Denies rash or lesions Neurological: Occasional lightheadedness, improved. Denies history of stroke/Transient isc hemic attack.Denies history of seizures. Denies dizziness, syncope and numbness. Hematological/Oncology . [...] use. Exer cises seldom . Lives in [place] Outpatient Medications Prior to Visit Medication Sig Dispense Refill Albuterol Sulfate (VENTOLIN HFA IN) Inhale 2 puffs into the lungs as needed. aspirin 325 MG EC tablet Take 1 tablet by mouth Daily. (Patient not taking: Reported on 10/01/2019.) 360 tablet dilTIAZem (CARDIZEM CD) 180 mg 24 [...] by mouth 2 times daily . No facility-administered medications prior to visit. PHYSICAL EXAM: Wt Readings from Last 3 Encounters: 10/01/19 51.8 kg (114 lb 4.8 oz) 08/28/19 51 kg (112 lb 8 oz) 07/07/19 54.7 kg (120 lb 9.6 oz) Temp Readings from Last 3 Encounters: 10/01/19 36.7 C (98 F) 09/27/19 36.8 C (98.2 F) (Oral) BP Readings from Last 3 Encounters: 10/01/19 106/60 08/28/19 110/64 07/07/19 106/66 Pulse Readings from Last 3 Encounters: 10/01/19 103 09/27/19 104 08/28/19 72 GENERAL: Frail elderly woman , in no distress. Appears approximately stated age. HEENT: Normocephalic, atraumatic. EYES: PERRL, EOM normal. NECK: No JVD, lymphadenopathy, thyromegaly, bruits. Carotid pulses are 2+ bilaterally LUNGS/CHEST: Clear bilaterally, with no rales, rhonchi or wheezing noted, respirations unl abored. R/a sat 95% HEART: Nondisplaced PMI, regular rate and rhythm [...] mmHg v alve not well visualized, trace VA EKG/EVENT MONITOR Event monitor: 2-week: September 03-September 18, 2019:( preliminary) Sinus rhythm 53%, average rate 83 bpm, range 53-161, multiple episodes of missed beats, but no pauses or asystole and slow est bradycardia 49 bpm. No PVC's or ventricular tachycardia. Multiple episodes of SVT with longest run 119 bpm for 1 minute and 19 seconds and fastest run 169 bpm for 4 beats. No At rial fib or flutter. Most episodes of slow heart rate occurring between midnight and 5:00 i n the morning. Multiple episodes of second-degree AV block with heart rates in the 40's, an d digoxin stopped 03/11/2019. Cardizem held from September 15 until September 16 due to feelings of we akness, and slow heart rates Event Monitor 2 week : 01/2019: Predominantly [...] and anterior le ads.Rate 90 bpm , VA 254, QRS 74 ms, QTC 443, tracing personally reviewed by me EK07/07/2019:( Cardizem 180 mg) Sinus tachycardia with first-degree AV block, ongoing lo w voltage QRS leads III, aVL, aVF and anterolateral leads. Rate 103 bpm, VA 236 ms, QRS 75 ms, QTC 403 ms, tracing personally reviewed by me, and compared to EKG performed in February, rate is less well-controlled EK08/28/2019 (Cardizem 180/digoxin 125 )sinus rhythm with prolonged first-degree AV block. Rate 76 bpm, VA 346 ms, QRS 68 ms, QTC 391 ms, tracing personally reviewed by me and denise red to EKG performed in June, first-degree AV block has increased, and rate better controlled EK10/01/2019: ( Cardizem 180 mg) Sinus tachycardia with first-degree AV block low voltage QRS, nonspecific ST -T abnormality.. Rate 106 bpm, VA 278 ms, QRS 52 ms, QTC 366 ms jazmin gaviria personally reviewed by me, and compared to EKG performed in August, first-degree AV block olvera s decreased, and rate is less well controlled LABS Labs: 12/10/2018:( [facility]) CBC: WBC 5.7, RBC 4.9, hemoglobin 16.3, hematocrit 47.4, platel ets 202. CMP: Glucose 121, BUN 10, creatinine 0.55, GFR 106, sodium 137, potassium 3.2, alb umin 3.5 bilirubin 0.9, AST 24, ALT 15, alk phos 99, troponin T i <0.010, BNP 124 Labs: 12/25/2018: ( [facility]):CBC: WBC 7.6, RBC 4.9, hemoglobin 15.9, hematocrit 46.8, platele ts 235. BMP: Glucose 98, BUN 18, creatinine 0.62, GFR 92, sodium 136, potassium 3.4, chlorid e 96, CO2 30, troponin T <0.010 Labs: 08/15/2019: BMP: Sodium 136, potassium 2.8, chloride 93, glucose 151, BUN 16, creatin ine 0.74, GFR 75. : TSH 1.82. Labs: 08/26/2019: BMP: (Potassium 20 meq bid ): Sodium 142, potassium 4.4, chloride 109, gluc ose 123, BUN 18, creatinine 0.66, GFR 85. Digoxin 0.88 Labs: 09/17/2019: ( [facility]) : 12:38: CBC: WBC 10.2, RBC 5.04, hemoglobin 16.7, hematocrit 48 , platelets 236. CMP: Glucose 131, BUN 19, creatinine 0.65, GFR 87, sodium 134, potassium 2 .5, chloride 93, magnesium 1.9, albumin 3.4, total bili 1.7, AST 25, ALT 15, alk phos 104, t roponin T <0.010. Thyroid: TSH 1.6. Labs: 09/29/2019: CMP: Sodium 139, potassium 4.7, chloride 105, glucose 90, BUN 17, creatini ne 0.59, GFR 97, calcium 8.4, AST 21, ALT 12, alk phos 110, total bili 0.8, albumin 2.9 Addendum labs: 10/15/2019::( Off chlorthalidone/ on potassium replacement) BMP: Sodium 141, potassium 4.9, chloride 106, glucose 82, calcium 8.5, BUN 19, creatinine 0.63, GFR 90 ASSESSMENT & PLAN: She was here today with her daughter to follow up on 2-week event monitor, as well as re cent emergency room visit after I told her to go to the emergency room on September 16 with hypok alemia and weakness. She has problems as detailed below Her EKG performed in the clinic today shows tachycardia with first-degree AV block and is d etailed above. Labs performed in the emergency room on September 16 are detailed above and had shown severe h ypokalemia with negative troponin and normal thyroid function and normal CBC though hemoglob in and hematocrit mildly elevated. Her labs performed on September 28 are detailed above and s how a normal CMP with now normal potassium of 4.7 and total bilirubin which been mildly elev ated previously is now normal. Her event monitor showed no afib or flutter , but did report multiple episodes of SVT with longest run 119 bpm for 1 minute and 19 seconds and fastest run 169 bpm for 4 beats. Most episodes of slow heart rate occurring between midnight and 5:00 in the morning.She also had multiple episodes of second-degree AV block with heart rates in the 40's, and digoxin stop ped 09/09/2019. Cardizem held from September 15 until September 16 due to feelings of weakness, and sl ow heart rates, but was tachycardic when in ER , and restarted, and weakness has improved wi th resolution of severe hypokalemia. I discussed with her today that I would like to see how she does on Cardizem 180 mg daily now that her potassium is back to normal , and that she also may have some underlying sleep apnea. I had previously stopped her chlorthalidone , and not sure why she took it again, but has stayed off if since ER , and has been off digoxin Since 09/09/2019. Her systolic blood pre ssure only in low 100's so does not need chlorthalidone for hypertension or pedal edema I am reluctant to add any more rate limiting medications with her slow heart rates with 2n d degree AV block . I had previously added ASA 325 mg while evaluating her for atrial fib, but this likely ca n be stopped again in future. I again encouraged her to use her Advair as prescribed twice daily to help decrease incide nce of asthma exacerbations. I have also ordered a repeat BMP to be performed in 2 weeks, with copies to be sent to h er PCP Jaz Desir to Follow up on her renal function and potassium now that she is Re maining off chlorthalidone. I will call her about her labs, and will see if she still needs potassium 20 mEq BID. If she continues to have fast and slow heart rates, with increasing 2nd degree AVB, she ma y need referral to EP for consideration of pacemaker. I have referred her to [facility] for evaluation of sleep apnea, which can contribute to bradycardia, and atrial tachycardias. She will see Dr. Darnell next on December 01 to establish with him as her primary cardiology, as she does not wish to travel to [place] to see Dr. Auguste on a regular basis. I have a tentative telephone visit set up with her on Nov 09, which I can cancel if not odilon cruz. She will then have complete cardiology team of a farebox repairer, as well as a cardiology odilon oliveira practitioner. 1. Tachycardia 2. First degree AV block 3. Essential hypertension 4. Mild tricuspid regurgitation by prior echocardiogram 5. Moderate mitral regurgitation by prior echocardiogram 6. Nonrheumatic aortic valve insufficiency 7. Premature atrial contractions 8. 2nd degree AV block 9. Risk factors for obstructive sleep apnea 10. Hypokalemia 11. Palpitations Orders Placed This Encounter Procedures Basic Metabolic Panel Ambulatory Referral to Sleep Medicine ECG 12 lead The following portions of the patient's history were personally reviewed by me and updated as appropriate: EKG tracings, other specialty provider and PCP notes,any Hospital admission and discharge summaries, any ER records , current and previous cardiac testing and procedure reports and d colin, medication bottles NOT brought to visit today . Allergies, current medications.labs Family history, past medical history, past social history, past surgical history. Problem list. This encounter was dictated with voice recognition software and may contain inadvertent rec ognition errors. Portions of this chart may have been copied from previous notes for continuity of care purp ron MEEKS [facility] Cardiology 10/01/2019 CAdojon watson in this encounter Plan of Treatment +--------+ + + + + | Date | Type | Specialty | Care Team | Description | +--------+ + + + + | 12/10/ | Procedure | Cardiology | Alexander Darnell, | | 2019 | visit | | MD [address] | | | | | | [place], | | | | | | [place] [address] | | | | | | [phone] | | | | | | | | +--------+ + + + + | 03/18/ | Office | Cardiology | Ana Cross | | | 2020 | Visit | | [address] | | | | | | [address] | | | | | | [place] [address] | | | | | | [phone] | | | | | | | | +--------+ + + + + + +------+--------+ + + | Name | Type | Priori | Associated Diagnoses | Order Schedule | | | | ty | | | + +------+--------+ + + | Basic Metabolic | Lab | Routin | Essential | Expected: | | Panel | | e | hypertension | 10/15/2019, Expires: | | | | | Hypokalemia | 09/30/2020 | + +------+--------+ + + + + +--------+ + + | Name | Type | Priori | Associated Diagnoses | Order Schedule | | | | ty | | | + + +--------+ + + | Ambulatory Referral | Outpatient | Routin | Tachycardia First | Ordered: 10/01/2019 | | to Sleep Medicine | Referral | e | degree AV block | | | | | | Risk factors for | | | | | | obstructive sleep | | | | | | apnea Palpitations | | + + +--------+ + + [...] in this encounter Results ECG 12 lead (10/01/2019 2:24 PM PDT) [...] JARAMILLO | | | | | | ([id number]) on 10/01/2019 | | | | | | 5:02:23 PMAlso confirmed | | | | | | by MAURO HUGHES MD | | | | | | ([id number]) on 10/02/2019 | | | | | [...] Primary Tachycardia, unspecified | + + | First degree AV block First degree atrioventricular block | + + | Essential hypertension Unspecified essential hypertension | + + | Mild tricuspid regurgitation by prior echocardiogram Diseases of tricuspid valve | + + | Moderate mitral regurgitation by prior echocardiogram Mitral valve disorders | + + | Nonrheumatic aortic valve insufficiency Aortic valve disorders | + + | Premature atrial contractions Supraventricular premature beats | + + | 2nd degree AV block Other second degree atrioventricular block | + + | Risk factors for obstructive sleep apnea | + + | Hypokalemia Hypopotassemia | + + | Palpitations | + + documented in this encounter"
--- OUTSIDE RECORDS SUMMARY | ~2019-12-09 | XMS | Encounter Summary ---
Demographics + + + | Address | [address] | | | [place] [address] | + + + | Home Phone [...] + + + | Author | [facility] | | | and [place] | + + + | Organization | [facility] | | [...] Team Providers + +------+ + | Care Science Technicians Name | Role | Phone | + +------+ + | Jaz Desir | PCP | | | PA-C | | | + +------+ + Reason for Visit + +--------+ + | Reason | Onset | Comments | | | Date | | + +--------+ + | Lab Results | 10/21/ | | | | 2020 | | + +--------+ + Encounter Details +--------+ + + + + | Date | Type | Department | Care Team | Description | +--------+ + + + + | 10/21/ | Telephone | [facility] | Ana Cross | Lab Results | | 2019 | | CARDIOLOGY [facility] | [address] | | | | | [address] | [address] | | | | | [address] | [place] [address] | | | | | [address] | [phone] | | | | | [phone] | | | +--------+ + + + [...] this encounter Miscellaneous Notes Telephone Encounter - Daniella Akbar CMA - 10/22/2019 4:26 PM PDTLet daughter know, she was thankful. Wanted to know if her mom still needed to be on 4 potassium tablets and still needed to have the telephone visit on the 02 of November. She had no further questions. PH ----- Message from MYLES Cooper sent at 10/16/2019 12:06 PM PDT ----- Regarding: leonel Carpenter, Please let her daughter Briseida know I saw her labs performed 10/15/2019, and they looked goo d with normal potassium and kidney function. Thanks MB documented in this encounter Plan of Treatment +--------+ + + + + | Date | Type | Specialty | Care Team | Description | +--------+ + + + + | 12/10/ | Procedure | Cardiology | Alexander Darnell, | | | 2019 | visit | | [address] | | | | | | [place] | | | | | | [place] [address] | | | | | | [phone] | | | | | | | | +--------+ + + + + | 03/18/ | Office | Cardiology | Ana Cross | | | 2020 | Visit | | [address] | | | | | | [address] | | | | | | [place] [address] | | | | | | [phone] | | | | | | | | +--------+ + + + + documented as of this encounter Visit Diagnoses Not on filedocumented in this encounter"
--- OUTSIDE RECORDS SUMMARY | ~2019-12-09 | XMS | Encounter Summary ---
Demographics + + + | Address | [address] | | | [place] [address] | + + + | Home Phone [...] + | Author | [facility] | | | and [place] | + + + | Organization | [facility] | | | and [...] Team Providers + +------+ + | Care Incident Response Engineer Name | Role | Phone | + [...] | | | | | [address] | [place] | | | | | [place] | [address] | | | | | [address] | | | | | | [phone] | | | +--------+ + + + [...] 10/30/19 1226 by | | halina | fopv-lpp-bauxdr catheter system; | Mily Canseco, | Arianne [...] Kaefely Rodriguez Corona 84 y.o. female 1935 [id number] Procedure(s) RIGHT EXTRACTION CATARACT W/ OR W/O [...] García MD 10/30/2019 12:26 PM PDT [facility] Patrick García MD at 10/20 12:26 PM PDTAnesthesia Preprocedure Evaluation - Patrick García MD - 10/29/2019 11: 24 AM PDT ANESTHESIA PREANESTHESIA EVALUATION Kae Jeter 84 y.o. female 1935 [id number] Procedure(s): RIGHT EXTRACTION CATARACT W/ OR W/O [...] NOTE Kae Jeter 84 y.o. female 1935 [id number] RIGHT EXTRACTION CATARACT W/ OR W/O LENS [...] Patrick García MD 10/30/2019 12:01 PM PDT [facility] Patrick García MD at 10/20 [...] [place], | | | | | | [place] [address] | | | | | | [phone] | | | | | | | | +--------+ + + + + | 03/18/ | Office | Cardiology | [facility] | | | 2020 | Visit | | [address] | | | | | | [address] | | | | | | [place] [address] | | | | | | [phone] | | | | | | | [...]
--- OUTSIDE RECORDS SUMMARY | ~2019-12-09 | XMS | Encounter Summary ---
Demographics + + + | Address | [address] | | | [place] [address] | + + + | Home Phone | | + + + | Preferred Language | Unknown | + + + | Marital Status | | + + + | Uatsdin Affiliation | Unknown | + + + | Race | White | + + + | Ethnic Group | Not or | + + + Author + + + | Author | [facility] | | | and [place] | + + + | Organization | [facility] | | | [...] Team Providers + +------+ + | Care Power Tool Repairer Name | Role | Phone | + +------+ + | Jaz Desir | PCP | | | PA-C | | | + +------+ + Reason for Visit + +--------+ + | Reason | Onset | Comments | | | Date | | + +--------+ + | Patient Concerns | 09/16/ | | | | 2019 | | + +--------+ + Encounter Details +--------+ + + + + | Date | Type | Department | Care Team | Description | +--------+ + + + + | 09/16/ | Telephone | [facility] | Ana Cross | Patient Concerns | | 2019 | | CARDIOLOGY CLAIRE | [address] | | | | | [address] | | | | | [address] | [place] [address] | | | | | [address] | [phone] | | | | | [phone] | | | +--------+ + + + [...] Telephone Encounter - Ana Cross FNP - 09/17/2019 9:36 AM PDTI called her [address] [place] back and spoke to her. She reports her mother is not having a lot of emesis, but is having a small amount at [facility] every other day, and though is able to eat a little, is not eating or drinking a lot, a nd may be dehydrated. I told her daughter to hold her Cardizem for now, but that she should go to the emergency room and get her mom assessed as I was concerned with her vomiting as she already had low p otassium, and I think she is dehydrated. She can get updated labs, and EKG while she is the re, and be rehydrated if necessary. I told her I would like to see her back sooner, possibly in [place] on September 29. She appreciated the call. documented in this encounter Plan of Treatment +--------+ + + + + | Date | Type | Specialty | Care Team | Description | +--------+ + + + + | 12/10/ | Procedure | Cardiology | Alexander Darnell, | | 2019 | visit | | [address] | | | | | | [place], | | | | | | [place] [address] | | | | | | [phone] | | | | | | | | +--------+ + + + + | 03/18/ | Office | Cardiology | Ana Cross | | | 2020 | Visit | | [address] | | | | | | [address] | | | | | | [place] [address] | | | | | | [phone] | | | | | | | | +--------+ + + + + documented as of this encounter Visit Diagnoses Not on filedocumented in this encounter"
--- OUTSIDE RECORDS SUMMARY | ~2019-12-09 | XMS | Encounter Summary ---
Demographics + + + | Address | [address] | | | [place] [address] | + + + | Home Phone | | + + + | Preferred Language | Unknown | + + + | Marital Status | | + + + | Hinduism Affiliation | Unknown | + + + [...] Team Providers + +------+ + | Care Voip Network Technician Name | Role | Phone | [...] + + | 09/03/ | Documentati | [facility] | Hermelinda Mcgovern, | Other (end of study) | | 2020 | on | CARDIOLOGY [place] | Technologist | | | | | [address] | | | | | | [facility] [place] | | | | | | [address] | | | | | | [phone] | | | +--------+ + + + [...] Date of Event Monitor: 09/04/19 Referring Physician: [place]: Kae Jeter : 1935 Age: 84 y.o. [...] [place] | | | | | | [place] [address] | | | | | | [phone] | | | | | | | | +--------+ + + + + | 03/18/ | Office | Cardiology | Ana Cross | | | 2020 | Visit | | [address] | | | | | | [address] | | | | | | [place] [address] | | | | | | [phone] | | | | | | | | +--------+ + + + + documented as of this encounter Visit Diagnoses Not on filedocumented in this encounter"
--- OUTSIDE RECORDS SUMMARY | ~2019-12-09 | XMS | Encounter Summary ---
Demographics + + + | Address | [address] | | | [place] [address] | + + + | Home Phone [...] + + + | Author | [facility] | | | and [place] | + + + | Organization | [facility] | | | [...] Team Providers + +------+ + | Care Dehairing Machine Tender Name | Role | Phone | + +------+ + | Jaz Desir | PCP | | | PA-C | | | + +------+ + Reason for Visit + + + | Reason | Comments | + + + | Follow-up | 6 week, med changes | + + + Encounter Details +--------+---------+ + + + | Date | Type | Department | Care Team | Description | +--------+---------+ + + + | 07/06/ | Office | [facility] | Ana Cross | Tachycardia (Primary | | 2019 | Visit | CARDIOLOGY [place]NA [place]URA | [address] | Dx); First degree | | | | [address] | [address] | AV block; Premature | | | | [address] | [place] [address] | atrial contractions; | | | | [place] | [phone] | Essential | | | | [address] | | hypertension; | | | | [phone] | | Nonrheumatic aortic | | | [...] | | | | therapy; Hypokalemia | +--------+---------+ + + + Social History [...] + + + | Blood Pressure | 106/66 | 07/07/2019 2:05 PM | | | | | PDT | | + + + + + | Pulse | 111 | 07/07/2019 2:05 PM | | | | | PDT | | + + + + + | Temperature | - | - | | + + + + + | Respiratory Rate | - | - | | + + + + + | Oxygen Saturation | 94% | 07/07/2019 2:05 PM | | | | | PDT | | + + + + + | Inhaled Oxygen | - | - | | | Concentration | | | | + + + + + | Weight | 54.7 kg (120 lb 9.6 | 07/07/2019 2:05 PM | | | | oz) | PDT | | + + + + + | Height | 152.4 cm (5') | 07/07/2019 2:05 PM | | | | | PDT | | + + + + + | Body Mass Index | 23.55 | 07/07/2019 2:05 PM | | | | | PDT | | + + + + + documented in this encounter Patient Instructions Patient Instructions Ana Cross FNP - 07/07/2019 2:00 PM PDTI have ordered you non fasting labs to be done at [facility] in one month , but can drink water prior to [facility] labs done . Do not take your digoxin the day of your lab draw, take it after lab drawn I made changes to medications by adding digoxin 125 mcg daily in the morning See me back in 6 weeks, and I will have you establish care with Dr. Darnell in 4-5 months so h adriana primary application support manager who comes to [facility]. documented in this encounter Progress Notes Ana Cross FNP - 07/07/2019 2:00 PM PDTFormatting of this note might be differe nt from the original. Date of visit: 07/07/2019 Primary Care Physician: Jaz Desir PA-C CHIEF COMPLAINT: Chief Complaint Patient presents with Follow-up 6 week, med changes HISTORY OF PRESENT ILLNESS: Ms. Kae Jeter is an 84 year old woman who is here today to follow up on response to Cardizem 180 mg She is accompanied today by her daughter [...] procedures are detailed below. I saw her last on April 14, 2019 when I followed up with her about her echo, and willi ed her Cardizem to 180 mg daily for ongoing sinus tachycardia. She reports today that she has felt improved on Cardizem, and did not have any side effec ts with increased dose, though did have one episode since she saw me last of lightheadedness , which was transient. She denies any chest pain, and feels her breathing and activity tolerance has improved, and she feels she is back to her baseline pulmonary function since her asthma exacerbation in [facility]. She reports occasional mild pedal edema , and denies any dizziness or syncope, or any sign s or symptoms of stroke. She exercises minimally due to limited mobility and walker. She denies any smoking history, drink 2 servings of tea lately ,and drinks a beer every 2 -3 month, and denies use of recreational or illicit drugs . She brought her medications with her, and I personally reviewed REVIEW OF SYSTEMS: Negative except for pertinent items noted in HPI. Constitutional: Denies fatigue or unexplained weight loss. Appetite is average . Weight i s stable. Denies night sweats fevers or chills HENT: Denies nosebleeds. Moderate hearing Loss with hearing aids Denies dysphagia Eyes: Cataracts, needs surgery .Denies visual disturbance or double vision. Respiratory/Sleep::Mild HUMPHERYS with more extreme exertions. Asthma . Denies [...] use. Exer cises seldom . Lives in [facility] Medications Prior to Visit Medication Sig Dispense Refill Albuterol Sulfate (VENTOLIN HFA IN) Inhale 2 puffs into the lungs as needed. chlorthalidone 25 mg tablet Take 25 mg by mouth Daily. dilTIAZem (CARDIZEM CD) 180 mg 24 hr capsule Take 1 capsule by mouth Daily. 30 capsule 11 fluticasone-salmeterol (ADVAIR, WIXELA INHUB) 250-50 mcg/puff diskus inhaler Inhale 1 p uff into the lungs 2 times daily. gabapentin (NEURONTIN) 300 mg capsule Take 300 mg by mouth 3 times daily. potassium chloride (MICRO-K) 10 mEq CR capsule Take 10 mEq by mouth Daily. Take two tab lets by mouth once daily No facility-administered medications prior to visit. PHYSICAL EXAM: Wt Readings from Last 3 Encounters: 07/07/19 54.7 kg (120 lb 9.6 oz) 04/14/19 53.4 kg (117 lb 11.2 oz) 03/12/19 53.5 kg (118 lb) Temp Readings from Last 3 Encounters: No data found for Temp BP Readings from Last 3 Encounters: 07/07/19 106/66 04/14/19 110/70 03/12/19 108/72 Pulse Readings from Last 3 Encounters: 07/07/19 111 04/14/19 89 03/12/19 90 GENERAL: Frail elderly [...] mmHg v alve not well visualized, trace MI EKG/EVENT MONITOR Event Monitor 2 week : [...] and anterior le ads.Rate 90 bpm , MI 254, QRS 74 ms, QTC 443, tracing personally reviewed by me EK07/07/2019:( Cardizem 180 mg) Sinus tachycardia with first-degree AV block, ongoing lo w voltage QRS leads III, aVL, aVF and anterolateral leads. Rate 103 bpm, MI 236 ms, QRS 75 ms, QTC 403 ms, tracing personally reviewed by me, and compared to EKG performed in February, rate is less well-controlled LABS Labs: 12/10/2018:( [facility]) CBC: WBC 5.7, RBC 4.9, hemoglobin 16.3, hematocrit 47.4, platel ets 202. CMP: Glucose 121, BUN 10, creatinine 0.55, GFR 106, sodium 137, potassium 3.2, alb umin 3.5 bilirubin 0.9, AST 24, ALT 15, alk phos 99, troponin T i <0.010, BNP 124 Labs: 12/25/2018: ( [facility]):CBC: WBC 7.6, RBC 4.9, hemoglobin 15.9, hematocrit 46.8, platele ts 235. BMP: Glucose 98, BUN 18, creatinine 0.62, GFR 92, sodium 136, potassium 3.4, chlorid e 96, CO2 30, troponin T <0.010 Addendum: Labs: 08/15/2019: BMP: Sodium 136, potassium 2.8, chloride 93, glucose 151, BUN 16 , creatinine 0.74, GFR 75. Thyroid: TSH 1.82. ASSESSMENT & PLAN: She was here today with her daughter to follow up on response to Cardizem 180 mg She has problems as detailed below Her EKG performed in the clinic today shows sinus tachycardia with first-degree AV block, a nd rate is less well controlled than previously. I reviewed the EKG results in detail with her and her daughter, and discussed with them that I did not want to increase her Cardizem further as her blood pressure was not very high , but still thought that she could benefit from better rate control. I have added digoxin 125 mcg to her cardiac medications to help co I made no other changes to cardiac medications today, and she should continue on dilti azem 180 mg daily, chlorthalidone 25 mg daily, and potassium 10 mEq daily, and I have also e ncouraged her to use her Advair as prescribed twice daily to help avoid future asthma exacer bations. I have also ordered a BMP, and TSH to ensure no other etiology for her increased heart rate , as well as a digoxin level to be performed in 2 weeks, with copies to be sent to her PCP. I will see her back on August 27 to follow-up on her response to digoxin and lab results but s ooner if needed. I will also have her establish care with Dr. Darnell as her primary application support manager who comes t o [facility] so that she has a complete cardiology team of a application support manager, as well as a [facility] ology nurse practitioner. She has an appointment with him on December 01. 1. Tachycardia 2. First degree AV block 3. Premature atrial contractions 4. Essential hypertension 5. Nonrheumatic aortic valve insufficiency 6. Moderate mitral regurgitation by prior echocardiogram 7. Mild tricuspid regurgitation by prior echocardiogram 8. Screening for thyroid disorder 9. Encounter for monitoring digoxin therapy Orders Placed This Encounter Procedures Basic Metabolic Panel TSH, Reflex Free T4 Digoxin Level ECG 12 lead The following portions of the patient's history were personally reviewed by me and updated as appropriate: EKG tracings, other specialty provider and PCP notes,any Hospital admission and discharge summaries, any ER records , current and previous cardiac testing and procedure reports and d colin, medication bottles brought to visit today personally reviewed by me. Allergies, current medications.labs Family history, past medical history, past social history, past surgical history. Problem list. This encounter was dictated with voice recognition software and may contain inadvertent rec ognition errors. Portions of this chart may have been copied from previous notes for continuity of care [facility]/2019 docume nted in this encounter Miscellaneous Notes Addendum Note - Ana Cross FNP - 07/07/2019 2:00 PM PDT Addended by: ANA CROSS on: 08/18/2019 04:58 PM Modules accepted: Orders documented in this encounter Plan of Treatment [...] | | | | | | [place] [address] | | | | | | [phone] | | | | | | | | +--------+ + + + + | 03/18/ | Office | Cardiology | IjeomaAna wade | | | 2020 | Visit | | [address] | | | | | | [address] | | | | | | [place] [address] | | | | | | [phone] | | | | | | | | +--------+ + + + + + +------+--------+ + + | Name | Type | Priori | Associated Diagnoses | Order Schedule | | | | ty | | | + +------+--------+ + + | ECG 12 lead | ECG | Routin | Tachycardia First | Ordered: 07/07/2019 | | | | e | degree AV block | | | | | | Premature atrial | | | | | | contractions | [...] | | | prior echocardiogram | | + +------+--------+ + + | TSH, Reflex Free T4 | Lab | Routin | Screening for | Expected: | | | | e | thyroid disorder | 08/07/2019, Expires: | | | | | | 07/06/2020 | + +------+--------+ + + | Digoxin Level | Lab | Routin | Encounter for | Expected: | | | | e | monitoring digoxin | 08/25/2019, Expires: | | | | | therapy | 08/17/2020 | + +------+--------+ + + documented as of this encounter Visit Diagnoses + + | Diagnosis | + + | Tachycardia - Primary Tachycardia, unspecified | + + | First degree AV block First degree atrioventricular block | + + | Premature atrial contractions Supraventricular premature beats | + + | Essential hypertension Unspecified essential hypertension | + + | Nonrheumatic aortic valve insufficiency Aortic valve disorders | + + | Moderate mitral regurgitation by prior echocardiogram Mitral valve disorders | + + | Mild tricuspid regurgitation by prior echocardiogram Diseases of tricuspid valve | + + | Screening for thyroid disorder | + + | Encounter for monitoring digoxin therapy Encounter for therapeutic drug monitoring | + + | Hypokalemia Hypopotassemia | + + documented in this encounter"
--- OUTSIDE RECORDS SUMMARY | ~2019-12-09 | XMS | Encounter Summary ---
Demographics + + + | Address | [address] | | | [place] [address] | + + + | Home Phone | | + + + | Preferred Language | Unknown | + + + | Marital Status | | + + + | Buddhism Affiliation | Unknown | + + + | Race | White | + + + | Ethnic Group | Not or | + + + Author + + + | Author | [facility] | | | and [place] | + + + | Organization | [facility] | | [...] Team Providers + +------+ + | Care Reception Specialist Name | Role | Phone | + +------+ + | Jaz Desir | PCP | | | PA-C | | | + +------+ + Encounter Details +--------+---------+ + + + | Date | Type | Department | Care Team | Description | +--------+---------+ + + + | 10/01/ | Surgery | [facility] | Power Aries S, | LEFT EXTRACTION | | 2019 | | MED CTR OR INTRA OP | MD [address] | CATARACT W/ OR W/O | | | | [address] | [place] | LENS IMPLANT | | | | [place], [place] | [address] | | | | | [address] | | | | | | [phone] | | | +--------+---------+ + + + [...] walking, reading, watching TV, working on the [place], shaving, bathing, or shampooing your hair. 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 Anterior chambers [...] Transcribed on 09/30/2019 16:26:17 by mikel job# [id number] Confirmation #: [id number] signed by Aries Sena MD at 10/02/2019 [...] | | | | | | [place] [address] | | | | | | [phone] | | | | | | | | +--------+ + + + + | 03/18/ | Office | Cardiology | Ana Cross | | | 2020 | Visit | | [address] | | | | | | [address] | | | | | | [place] [address] | | | | | | [phone] | | | | | | | [...] | | | | | | | [facility] 10/02/19 at 0902, For 3 | [...] | | | Starting [facility] 10/02/19 at 0902, | | | [...] 10:41 | | | | | Starting [facility] 10/02/19 at 1041, | | AM [...] | | | Starting [facility] 10/02/19 at 0902, For | | [...] | | | | | PRN, Starting [facility] 10/02/19 at | | AM PDT [...] | | | | | | | [facility] 10/02/19 at 0902, For 3 | [...]
--- OUTSIDE RECORDS SUMMARY | ~2019-12-09 | XMS | Encounter Summary ---
Demographics + + + | Address | [address] | | | [place] [address] | + + + | Home Phone | | + + + | Preferred Language | Unknown | + + + | Marital Status | | + + + | Christianity Affiliation | Unknown | + + + [...] Team Providers + +------+ + | Care Social Media Editor Name | Role | Phone | + [...] + + | 09/08/ | Telephone | [facility] | Ana Cross | Testing | | 2020 | | CARDIOLOGY CLAIRE | [address] | | | | | [address] | [address] | | | | | [address] | [place] [address] | | | | | [address] | [phone] | | | | | [phone] | | | +--------+ + + + [...] | | | | | | [place] [address] | | | | | | [phone] | | | | | | | | +--------+ + + + + | 03/18/ | Office | Cardiology | Ana Cross | | | 2020 | Visit | | [address] | | | | | | [address] | | | | | | [place] [address] | | | | | | [phone] | | | | | | | | +--------+ + + + + documented as of this encounter Visit Diagnoses Not on filedocumented in this encounter"
--- OUTSIDE RECORDS SUMMARY | ~2019-12-09 | XMS | Encounter Summary ---
Demographics + + + | Address | [address] | | | [place] [address] | + + + | Home Phone [...] + + + | Author | [facility] | | | and [place] | + + + | Organization | [facility] | | | and [...] Team Providers + +------+ + | Care Toolroom Attendant Name | Role | Phone | + +------+ + | Jaz Desir | PCP | | | PA-C | | | + +------+ + Reason for Visit + + + | Reason | Comments | + + + | Follow-up | 6 week, Cataract clx, possible afib, hypokalemia | + + + Encounter Details +--------+---------+ + + + | Date | Type | Department | Care Team | Description | +--------+---------+ + + + | 08/27/ | Office | [facility] | Ana Cross | Tachycardia (Primary | | 2020 | Visit | CARDIOLOGY [place] | [address] | Dx); First degree | | | | [address] | [address] | AV block; Premature | | | | [address] | [place] [address] | atrial contractions; | | | | [place] | [phone] | Essential | | | | [address] | | hypertension; | | | | [phone] | | Nonrheumatic aortic | | | [...] Instructions Patient Instructions Ana Cross FNP - 08/28/2019 2:30 PM PDTI have ordered you non fasting labs to be done at [facility] in one month , but can drink water prior to hav ing labs done I also ordered you a 2 week event monitor I made changes to medications by holding chlorathalidone , and adding ASA 325 mg enteric co ated, and take after a meal , and hold 5-7 days before cataract surgery Let me know if develops swelling See me back in 6 weeks for telephone visit, and do blood pressure, weight ,and heart rate f or the visit, and have medications ready to go documented in this encounter Progress Notes Ana Cross FNP - 08/28/2019 2:30 PM PDTFormatting of this note might be differe nt from the original. Date of visit: 08/29/2019 Primary Care Physician: Jaz Desir PA-C CHIEF COMPLAINT: Chief Complaint Patient presents with Follow-up 6 week, Cataract clx, possible afib, hypokalemia HISTORY OF PRESENT ILLNESS: Ms. Kae Jeter is an 84 year old woman who is here today to follow up reports fro m her network programmer that she may have atrial fibrillation as he noted an irregular heart rate when he examined her, and also to follow-up on her labs and response to potassium repla cement, as she had severe hypokalemia on labs done after I saw her last. She is accompanied today by her daughter Briseida who contributed to history,and is her kiana ana caregiver as her mother is very frail, and also has a hearing deficit. They also report that she needs a cardiac risk evaluation for planned cataract surgery from her network programmer Dr. Steve. Today, I reviewed all previous documentation available to me in electronic medical akil rds and from external sources. She is a patient of Dr. Auguste and last seen by him 03/12/2019 for consultation on pos sible atrial fibrillation.. She has a history of fast and irregular heart rate, hypertension , and asthma, and severe osteoporosis [...] up with her about her Echo, which is detailed below, and increased her Cardizem to 180 mg daily for ongoing sinus tachycardia. I saw her last on July 07, 2019 when I added digoxin 125 mcg to her medications to help w ith rate control, and ordered a BMP, TSH [...] her daughter on August 17, she reported Her mother was feeling quite weak. I r eceived notification from her network programmer, Dr. Steve about her possible atrial fib, an d for cardiac risk evaluation for cataract surgery on August 20. Today Kae reports that she has felt better since increased potassium, but does not lik e the potassium capsules, and preferred her 10 mEq tablets, as thinks the capsules are too l arge. Though she feels improved, and thinks her heart rate has improved, she still feels weak, an d was in a wheelchair today, and her daughter has ongoing concerns that her physical ability and energy has declined in the last 4 to 5 months. She reports today that she has not had any episodes of lightheadedness, and does not notice any palpitations, and feels that she is back to her baseline pulmonary function since her asthma exacerbation in December. She reports occasional [...] medications with her, and I personally reviewed with her and her daughter . Her daughter reports that she has been out of chlorthalidone for at least 1 week, as she picked up her new prescription, and they lost it. She has not had any increase to her dyspn ea, or pedal edema since she has been off chlorthalidone. REVIEW OF SYSTEMS: Negative except for pertinent [...] use. Exer cises seldom . Lives in [place] Outpatient Medications Prior to Visit Medication Sig Dispense Refill Albuterol Sulfate (VENTOLIN HFA IN) Inhale 2 puffs into the lungs as needed. chlorthalidone 25 mg tablet Take 25 mg by mouth Daily. digoxin (LANOXIN) 125 mcg tablet Take 1 tablet by mouth Daily. 30 tablet 11 dilTIAZem (CARDIZEM CD) 180 mg 24 hr capsule Take 1 capsule by mouth Daily. 30 capsule 11 fluticasone-salmeterol (ADVAIR, WIXELA INHUB) 250-50 mcg/puff diskus inhaler Inhale 1 p uff into the lungs 2 times daily. gabapentin (NEURONTIN) 300 mg capsule Take 300 mg by mouth 3 times daily. potassium chloride (KLOR-CON) 10 MEQ ER tablet Take 20 mEq by mouth Daily. potassium chloride (MICRO-K) 10 mEq CR capsule Take 2 capsules by mouth 2 times daily ( with breakfast & dinner). (Patient not taking: Reported on 08/28/2019.) 120 capsule 11 No facility-administered medications prior to visit. PHYSICAL EXAM: Wt Readings from Last 3 Encounters: 08/28/19 51 kg (112 lb 8 oz) 07/07/19 54.7 kg (120 lb 9.6 oz) 04/14/19 53.4 kg (117 lb 11.2 oz) Temp Readings from Last 3 Encounters: No data found for Temp BP Readings from Last 3 Encounters: 08/28/19 110/64 07/07/19 106/66 04/14/19 110/70 Pulse Readings from Last 3 Encounters: 08/28/19 72 07/07/19 111 04/14/19 89 GENERAL: Frail elderly woman , in no [...] aVF and anterolateral leads. Rate 103 bpm, SD 236 ms, QRS 75 ms, QTC 403 ms, tracing personally reviewed by me, and compared to EKG performed in February, rate is less well-controlled EK08/28/2019 (Cardizem 180/digoxin 125 )sinus rhythm with prolonged first-degree AV block. Rate 76 bpm, SD 346 ms, QRS 68 ms, QTC 391 ms, tracing personally reviewed by me and denise red to EKG performed in June, first-degree AV block has increased, and rate better controlled LABS Labs: 12/10/2018:( [facility]) CBC: WBC 5.7, RBC 4.9, hemoglobin 16.3, hematocrit 47.4, platel ets 202. CMP: Glucose 121, BUN 10, creatinine 0.55, GFR 106, sodium 137, potassium 3.2, alb umin 3.5 bilirubin 0.9, AST 24, ALT 15, alk phos 99, troponin T i <0.010, BNP 124 Labs: 12/25/2018: ( [facility]):CBC: WBC 7.6, RBC 4.9, hemoglobin 15.9, [...] 18, creatinine 0.66, GFR 85. Digoxin 0.88 ASSESSMENT & PLAN: She was here today with her daughter to follow up on hypokalemia, response to digoxin 12 5 mcg, as well as Cardizem 180 mg. She also needs a cardiac risk evaluation for planned cat aract surgery, as her network programmer, Dr. Steve, had thought she might be in atrial fib w hen he examined her, as he had auscultated an irregular heart rate. She has problems as detailed below Her EKG performed in the clinic today shows sinus rhythm at 76 bpm with increased first-deg ree AV block, so heart rate is considerably better controlled than previously, and blood pre ssure also well controlled. Her labs performed on August 14 are detailed above and showed a normal BMP except for severe hypokalemia with potassium of 2.8, and mildly elevated glucose of 151, and normal TSH. Her repeat labs performed on August 25 on potassium 20 mEq twice daily had showing a normal BMP wit h potassium improved to 4.4, and glucose also less elevated at 123, and digoxin therapeutic at 0.88. I reviewed the results of her EKG, and labs with her and her daughter, and discussed the po ssibility of atrial fibrillation. She has previously been evaluated by Dr. Auguste with an event monitor in January 2019 which had not shown any atrial fib but occasional PAC's, and her echo performed in March 2019 had shown a normal EF, with mild to moderate AI and mi ld to moderate MR. I told them at this point in time there was no strong indication to start her on anticoa gulation, but I would order another 2-week event monitor to assess her for any arrhythmias o r atrial fibrillation. In case she is having presently, I did add aspirin 325 mg to her med ications, and told her to stop it 5-7 days prior to her planned cataract surgery. I also told them that there was no need to hold off on her cataract surgery, as even peo ple in atrial fib for an anticoagulation can have cataract surgery as long as anticoagulatio n stopped prior to Procedure. For her cardiac medications, I have continued digoxin 125 mcg daily for rate control, and d iltiazem 180 mg daily for rate control and hypertension, potassium 20 mEq twice daily for hy pokalemia, and encouraged her to use her Advair as prescribed twice daily to help decrease i ncidence of asthma exacerbations. I have stopped her chlorthalidone, as she has been off of it by accident for 7-10 days with no increase in her pedal edema, and no increase to dyspne a, and has been less lightheaded. Given her systolic blood pressure is usually in the low 1 00's, I do not think that she needs it II have also ordered a repeat BMP to be performed in 4 weeks, with copies to be sent to her PCP Jaz Desir to her renal function and potassium now that she is off chlorthalid one. I will see her back on August 27 to follow-up on her response to digoxin and lab results but s ooner if needed. Her 2 week event monitor will be placed on September 03, and I will perform a telephonic visit with her on November 02 to follow-up, but they are aware they can see me in clinic if neede d or perform an earlier visit if indicated. She will establish care with Dr. Darnell as her primary cook chili who comes to [place] on 12/02/2019 so that she has a complete cardiology team of a cook chili, as well as a ca rdiology nurse practitioner. 1. Tachycardia 2. First degree AV block 3. Premature atrial contractions 4. Essential hypertension 5. Nonrheumatic aortic valve insufficiency 6. Moderate mitral regurgitation by prior echocardiogram 7. Mild tricuspid regurgitation by prior echocardiogram 8. Hypokalemia 9. Encounter for monitoring digoxin therapy 10. Palpitations Orders Placed This Encounter Procedures Basic Metabolic Panel ECG 12 lead Event monitor - 2 week The following portions of the patient's history [...] notes for continuity of care [facility] 08/29[facility]2019 docume nted in this encounter Plan of Treatment +--------+ + + + + | Date | Type | Specialty | Care Team | Description | +--------+ + + + + | 12/10/ | Procedure | Cardiology | Alexander Darnell, | | | 2019 | visit | | MD [address] | | | | | | [place] [place] | | | | | | [place] [address] | | | | | | [phone] | | | | | | | | +--------+ + + + + | 03/18/ | Office | Cardiology | Ana Cross | | | 2020 | Visit | | [address] | | | | | | [address] | | | | | | [place] [address] | | | | | | [phone] | | | | | | | | +--------+ + + + + + +------+--------+ + + | Name | Type | Priori | Associated Diagnoses | Order Schedule | | | | ty | | | + +------+--------+ + + | Event monitor - 2 | ECG | Routin | Tachycardia First | Expected: | | week | | e | degree AV block | 09/04/2019, Expires: | | | | | Premature atrial | 08/27/2020 | | | | | contractions | | | | | | Palpitations | | + +------+--------+ + + documented [...] in this encounter Results ECG 12 lead (08/28/2019 2:50 PM [...] | | | | | ECG of 12-MAR-2019 | | | | | | 15:14,Premature [...] J[place]O | | | | | | ([id number]) on 08/28/2019 | | | | | [...] of tricuspid valve | + + | Hypokalemia Hypopotassemia | + + | Encounter for monitoring digoxin therapy Encounter for therapeutic drug monitoring | + + | Palpitations | + + documented in this encounter"
--- OUTSIDE RECORDS SUMMARY | ~2019-12-09 | XMS | Encounter Summary ---
Demographics + + + | Address | [address] | | | [place] [address] | + + + | Home Phone | | + + + | Preferred Language | Unknown | + + + | Marital Status | | + + + | Sabianism Affiliation | Unknown | + + + | Race | White | + + + | Ethnic Group | Not or | + + + Author + + + | Author | [facility] | | | and [place] | + + + | Organization | [facility] | | [...] Team Providers + +------+ + | Care Propulsion Motor And Generator Repairer Name | Role | Phone | [...] + + | 09/11/ | Documentati | [facility] | Hermelinda Mcgovern, | Other (urgent | | 2020 | on | CARDIOLOGY [place] | Technologist | report) | | | | [address] | | | | | | [place], [place] | | | | | | [address] | | | | | | [phone] | | | +--------+ + + + [...] as of this encounter Progress Notes Hermelinda Mcgovern Technologist - 09/12/2019 10:11 AM PDTReceived urgent [...] | | | | | | [place] [address] | | | | | | [phone] | | | | | | | | +--------+ + + + + | 03/18/ | Office | Cardiology | Ana Cross | | | 2020 | Visit | | [address] | | | | | | [address] | | | | | | [place] [address] | | | | | | [phone] | | | | | | | | +--------+ + + + + documented as of this encounter Visit Diagnoses Not on filedocumented in this encounter"
--- OUTSIDE RECORDS SUMMARY | ~2019-12-09 | XMS | Encounter Summary ---
Demographics + + + | Address | [address] | | | [place] [address] | + + + | Home Phone [...] + + + | Author | [facility] | | | and [place] | + + + | Organization | [facility] | | | [...] Team Providers + +------+ + | Care Wrinkle Chaser Name | Role | Phone | + [...] + + | 09/16/ | Telephone | [facility] | Betty Novoa, | Weakness; Emesis | | 2019 | | CARDIOLOGY ROMERO | AKASH | | | | | [address] | | | | | | [place] | | | | | | [address] | | | | | | [phone] | | | +--------+ + + + [...] with any changes or concerns. AKASH Hern[facility]dez [facility] umented in this encounter Plan of Treatment [...] | | | | | | [place] [address] | | | | | | [phone] | | | | | | | | +--------+ + + + + | 03/18/ | Office | Cardiology | Ana Cross | | | 2020 | Visit | | [address] | | | | | | [address] | | | | | | [place] [address] | | | | | | [phone] | | | | | | | | +--------+ + + + + documented as of this encounter Visit Diagnoses Not on filedocumented in this encounter"
--- OUTSIDE RECORDS SUMMARY | ~2019-12-09 | XMS | Encounter Summary ---
Demographics + + + | Address | [address] | | | [place] [address] | + + + | Home Phone | | + + + | Preferred Language | Unknown | + + + | Marital Status | | + + + | Mandaen Affiliation | Unknown | + + + [...] Team Providers + +------+ + | Care Folder And Notcher Name | Role | Phone | + [...] + + | 09/16/ | Telephone | [facility] | Ana Cross | Patient Concerns | | 2019 | | CARDIOLOGY CLAIRE | [address] | | | | | [address] | | | | | [address] | [place] [address] | | | | | [address] | [phone] | | | | | [phone] | | | +--------+ + + + [...] having a small amount at [facility] every other day, and though [...] to see her back sooner, possibly in [place] on September 29. She appreciated the call. [...] [place], | | | | | | [place] [address] | | | | | | [phone] | | | | | | | | +--------+ + + + + | 03/18/ | Office | Cardiology | Ana Cross | | | 2020 | Visit | | [address] | | | | | | [address] | | | | | | [place] [address] | | | | | | [phone] | | | | | | | | +--------+ + + + + documented as of this encounter Visit Diagnoses Not on filedocumented in this encounter"
--- OUTSIDE RECORDS SUMMARY | ~2019-12-09 | XMS | Encounter Summary ---
Demographics + + + | Address | [address] | | | [place] [address] | + + + | Home Phone | | + + + | Preferred Language | Unknown | + + + | Marital Status | | + + + | Methodist Affiliation | Unknown | + + + [...] Providers + +------+ + | Care Supervisor Nut Processing Name | Role | Phone | + +------+ + | Jaz Desir | PCP | | | PA-C | | | + +------+ + Reason for Visit +--------+ + | Reason | Comments | +--------+ + | Other | 14 day monitor | +--------+ + Encounter Details +--------+ + + + + | Date | Type | Department | Care Team | Description | +--------+ + + + + | 02/06/ | Procedure | [facility] | Jaz Desir | Atrial fibrillation, | | 2019 | visit | CARDIOLOGY [place] | CAROL Beckham | unspecified type | | | | [address] | [address] | ([facility]) | | | | [address] | [place], [place] | | | | | [place], [place] | [address] | | | | | [address] | [phone] | | | | | [phone] | | | | | | | Inga Phelps DO | | | | | | [address] | | | | | | [address] [place] | | | | | | [id number] | | | | | | | [...] documented as of this encounter Progress Notes Sandra Carrillo, Machine Packer - 02/06/2019 2:15 PM PST14 day cardiac event monitor placed on patient. EOB/Billing information discussed. Instructions given and understood. P atient instructed to call [employer] for any billing or monitor questions. JDW:DRUG [email or web address]-AAMA. doc umented in this encounter Plan of Treatment +--------+ + + + + | Date | Type | Specialty | Care Team | Description | +--------+ + + + + | 12/10/ | Procedure | Cardiology | [place], Alexander M, | | | 2019 | visit | | [address] | | | | | | [place], | | | | | | [place] [address] | | | | | | [phone] | | | | | | | | +--------+ + + + + | 03/18/ | Office | Cardiology | Ana Cross | | | 2020 | Visit | | [address] | | | | | | [address] | | | | | | [place] [address] | | | | | | [phone] | | | | | | | | +--------+ + + + + documented as of this encounter Visit Diagnoses + + | Diagnosis | + + | Atrial fibrillation, unspecified type (HCC) | + + documented in this encounter"
--- OUTSIDE RECORDS SUMMARY | ~2019-12-09 | XMS | Encounter Summary ---
Demographics + + + | Address | [address] | | | [place] [address] | + + + | Home Phone | | + + + | Preferred Language | Unknown | + + + | Marital Status | | + + + | Baptism Affiliation | Unknown | + + + | Race | White | + + + | Ethnic Group | Not or | + + + Author + + + | Author | [facility] | | | and [place] | + + + | Organization | [facility] | | [...] Team Providers + +------+ + | Care Tractor Sweeper Driver Name | Role | Phone | + [...] | (Primary Dx) | | | | [place], | [address] | | | | | [place] [address] | | | | | | [phone] | | | +--------+ + + + [...] [place], | | | | | | [place] [address] | | | | | | [phone] | | | | | | | | +--------+ + + + + | 03/18/ | Office | Cardiology | Ana Cross | | | 2020 | Visit | | [address] | | | | | | [address] | | | | | | [place] [address] | | | | | | [phone] | | | | | | | | +--------+ + + + + documented as of this encounter Visit Diagnoses + + | Diagnosis | + + | 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
--- OUTSIDE RECORDS SUMMARY | ~2019-12-09 | XMS | Encounter Summary ---
Demographics + + + | Address | [address] | | | [place] [address] | + + + | Home Phone | | + + + | Preferred Language | Unknown | + + + | Marital Status | | + + + | Cheondoism Affiliation | Unknown | + + + | Race | White | + + + | Ethnic Group | Not or | + + + Author + + + | Author | [facility] | | | and [place] | + + + | Organization | [facility] | | [...] Team Providers + +------+ + | Care Network Communications Engineer Name | Role | Phone | [...] | +--------+ + + + + | 02/13/ | Documentati | [facility] | Hermelinda Mcgovern, | Other (urgent | | 2019 | on | CARDIOLOGY [place] | Technologist | report) | | | | [address] | | | | | | [place], [place] | | | | | | [address] | | | | | | [phone] | | | +--------+ + + + [...] encounter Progress Notes Hermelinda Mcgovern, Technologist - 02/13/2019 8:59 AM PSTReceived urgent report 02/13/19 Pt had a urgent report 02/13/19 at 03:27 57 BPM,activity: none, for possible AV block with variable conduction 14 day monitor was placed 02/06/19 Medication: None Will continue to monitor Please see attachment documented in this enco unter Plan of [...] | | | | | | [place] [address] | | | | | | [phone] | | | | | | | | +--------+ + + + + | 03/18/ | Office | Cardiology | [place] | | | 2020 | Visit | | [address] | | | | | | [address] | | | | | | [facility] [place] [address] | | | | | | [phone] | | | | | | | | +--------+ + + + + documented as of this encounter Visit Diagnoses Not on filedocumented in this encounter"
--- OUTSIDE RECORDS SUMMARY | ~2019-12-09 | XMS | Encounter Summary ---
Demographics + + + | Address | [address] | | | [place] [address] | + + + | Home Phone | | + + + | Preferred Language | Unknown | + + + | Marital Status | | + + + | Advent Affiliation | Unknown | + + + | Race | White | + + + | Ethnic Group | Not or | + + + Author + + + | Author | [facility] | | | and [place] | + + + | Organization | [facility] | | | [...] Team Providers + +------+ + | Care Triage Licensed Practical Nurse Name | Role | Phone | + +------+ + | Jaz Desir | PCP | | | PA-C | | | + +------+ + Encounter Details +--------+ + + + + | Date | Type | Department | Care Team | Description | +--------+ + + + + | 10/01/ | [facility] | [facility] | Aries Sena | | | 2019 | Encounter | [facility] | MD [address] | | | | | [address] | [place] | | | | | [place] | [address] | | | | | [address] | | | | | | [phone] | | | +--------+ + + + [...] walking, reading, watching TV, working on the [employer] uter, shaving, bathing, or shampooing your hair. [...] Lewis, M D [address] | [place] [address] | P: [phone] | F: [phone] | [employer] documented in this encounter Medications at Time [...] Sena MD, 10/02/2019 10:[address] 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 Anterior chambers [...] Transcribed on 09/30/2019 16:26:17 by mikel job# [id number] Confirmation #: [id number] signed by Aries Sena MD at 10/02/2019 [...] [place], | | | | | | [place] [address] | | | | | | [phone] | | | | | | | | +--------+ + + + + | 03/18/ | Office | Cardiology | Ana Cross | | | 2020 | Visit | | [address] | | | | | | [address] | | | | | | [place] [address] | | | | | | [phone] | | | | | | | [...] | | | | | | Starting [facility] 10/02/19 at 0902, For | | [...]
--- OUTSIDE RECORDS SUMMARY | ~2019-12-09 | XMS | Encounter Summary ---
Demographics + + + | Address | [address] [facility] | | | [place] [address] | + + + | Home Phone | | + + + | Preferred Language | Unknown | + + + | Marital Status | | + + + | Gnosticist Affiliation | Unknown | + + + | Race | White | + + + | Ethnic Group | Not or | + + + Author + + + | Author | [facility] | | | and [place] | + + + | Organization | [facility] | | [...] Team Providers + +------+ + | Care Crap Game Box Person Name | Role | Phone | + +------+ + | Jaz Desir | PCP | | | PA-C | | | + +------+ + Reason for Visit + +--------+ + | Reason | Onset | Comments | | | Date | | + +--------+ + | Medication Question | 11/05/ | | | | 2019 | | + +--------+ + Encounter Details +--------+ + + + + | Date | Type | Department | Care Team | Description | +--------+ + + + + | 11/05/ | Telephone | [facility] | Ana Cross | Medication Question | | 2019 | | CARDIOLOGY [place]NA [place] | [address] | | | | | [address] | | | | | [address] | [place] [address] | | | | | [place] | [phone] | | | | | [address] | | | | | | [phone] | | | +--------+ + + + [...] Telephone Encounter - Ana Cross FNP - 11/06/2019 4:30 PM [facility] called Briseida wallace and spoke to her about the potassium prescription, as I had previously ordered it as potas sium 10 mEq to take 20 mEq twice daily. The emergency room physician had changed it to 20 mEq tablets twice daily, and I told he r if she called the pharmacy that they should be able to change it back to 10 mEq pills so t hat she can take 2 twice a day if she tells him that she cannot swallow it, as that is the w ay that I originally ordered it. She Is going to phone the pharmacy and request this, and I told her if there was any diff iculties, that I would address it on Sunday when I had my telephone visit with her mother. She appreciated the call documented in this encounter Plan of Treatment [...] | | | | | | [place] [address] | | | | | | [phone] | | | | | | | | +--------+ + + + + | 03/18/ | Office | Cardiology | Ana Cross | | | 2020 | Visit | | [address] | | | | | | [address] | | | | | | [place] [address] | | | | | | [phone] | | | | | | | | +--------+ + + + + documented as of this encounter Visit Diagnoses Not on filedocumented in this encounter"
--- OUTSIDE RECORDS SUMMARY | ~2019-12-09 | XMS | Encounter Summary ---
Demographics + + + | Address | [address] [facility] | | | [place] [address] | + + + | Home Phone | | + + + | Preferred Language | Unknown | + + + | Marital Status | | + + + | Yarsanism Affiliation | Unknown | + + + | Race | White | + + + | Ethnic Group | Not or | + + + Author + + + | Author | [facility] | | | and [place] | + + + | Organization | [facility] | | | [...] Team Providers + +------+ + | Care Rail Crew Member Name | Role | Phone | + [...] + + | 11/05/ | Telephone | [facility] | Ana Cross | Medication Question | | 2019 | | CARDIOLOGY ANA LAURA | [address] | | | | | [address] | [address] | | | | | [address] | [place] [address] | | | | | [place] | [phone] | | | | | [address] | | | | | | [phone] | | | +--------+ + + + [...] | | | | | | [place] [address] | | | | | | [phone] | | | | | | | | +--------+ + + + + | 03/18/ | Office | Cardiology | Ana Cross | | | 2020 | Visit | | [address] | | | | | | [address] | | | | | | [place] [address] | | | | | | [phone] | | | | | | | | +--------+ + + + + documented as of this encounter Visit Diagnoses Not on filedocumented in this encounter"
--- OUTSIDE RECORDS SUMMARY | ~2019-12-09 | XMS | Encounter Summary ---
Demographics + + + | Address | [address] | | | [place] [address] | + + + | Home Phone [...] + + + | Author | [facility] | | | and [place] | + + + | Organization | [facility] | | [...] Team Providers + +------+ + | Care Natural Resources Instructor Name | Role | Phone | [...] + + | 08/17/ | Telephone | [facility] | Ana Cross | Testing | | 2020 | | CARDIOLOGY [place] | [address] | | | | | [address] | [address] | | | | | [place] | [place] [address] | | | | | [address] | [phone] | | | | | [phone] | | | +--------+ + + + [...] encounter Miscellaneous Notes Telephone Encounter - AmericaAna, PAPER PRODUCTS INSPECTOR - 08/18/2019 4:58 PM PDTI called and [...] | | | | | | [place] [address] | | | | | | [phone] | | | | | | | | +--------+ + + + + | 03/18/ | Office | Cardiology | Ana Cross | | | 2020 | Visit | | [address] | | | | | | [address] | | | | | | [place] [address] | | | | | | [phone] | | | | | | | | +--------+ + + + + documented as of this encounter Visit Diagnoses Not on filedocumented in this encounter"
--- OUTSIDE RECORDS SUMMARY | ~2019-12-09 | XMS | Encounter Summary ---
Demographics + + + | Address | [address] | | | [place] [address] | + + + | Home Phone | | + + + | Preferred Language | Unknown | + + + | Marital Status | | + + + | Judaism Affiliation | Unknown | + + + | Race | White | + + + | Ethnic Group | Not or | + + + Author + + + | Author | [facility] | | | and [place] | + + + | Organization | [facility] | | | and [...] Team Providers + +------+ + | Care Medical Office Secretary Name | Role | Phone | + [...] + + | 09/07/ | Documentati | [facility] | Hermelinda Mcgovern, | Other (urgent | | 2020 | on | CARDIOLOGY MCCON[place]S | Technologist | report) | | | | [address] | | | | | | [place], [place] | | | | | | [address] | | | | | | [phone] | | | +--------+ + + + [...] | | | | | | [place] [address] | | | | | | [phone] | | | | | | | | +--------+ + + + + | 03/18/ | Office | Cardiology | Ana Cross | | | 2020 | Visit | | [address] | | | | | | [address] | | | | | | [place] [address] | | | | | | [phone] | | | | | | | | +--------+ + + + + documented as of this encounter Visit Diagnoses Not on filedocumented in this encounter"
--- OUTSIDE RECORDS SUMMARY | ~2019-12-09 | XMS | Encounter Summary ---
Demographics + + + | Address | [address] | | | [place] [address] | + + + | Home Phone | | + + + | Preferred Language | Unknown | + + + | Marital Status | | + + + | Caodaism Affiliation | Unknown | + + + | Race | White | + + + | Ethnic Group | Not or | + + + Author + + + | Author | [facility] | | | and [place] | + + + | Organization | [facility] | | [...] Team Providers + +------+ + | Care Rn Hematology Name | Role | Phone | + +------+ + | Jaz Desir | PCP | | | PA-C | | | + +------+ + Encounter Details +--------+ + + + + | Date | Type | Department | Care Team | Description | +--------+ + + + + | 10/01/ | Anesthesia | [facility] | Ajay Ann MD | | | 2020 | Event | MED CTR [facility]TRA OP | [address] | | | | | [address] | [place] | | | | | [place] | [address] | | | | | [address] | | | | | | [phone] | | | +--------+ + + + + Anesthesia Record + + + + + | Procedure Name | Responsible | Anesthesia Start | Anesthesia Stop Time | | | Anesthesiologist | Time | | + + + + + | LEFT EXTRACTION | Ajay Ann MD | 10/02/19 1026 | 10/02/19 1102 | | CATARACT W/ OR W/O | | | | | LENS IMPLANT (Left | | | | | Eye) | | | | + + + + + +----+---+ + + | Da | T | Event | Comment | | te | i | | | | | m | | | | | e | | | +----+---+ + + | 08 | 1 | | | | /1 | 0 | | | | 3/ | 1 | | | | 20 | 9 | | | | 20 | | | | +----+---+ + + | | 1 | Anesthesia | | | | 0 | Ready | | | | 2 | | | | | 6 | | | +----+---+ + + | | 1 | An Start | Reassessment prior to anesthesia induction/procedure. | | | 0 | | | | | 2 | | | | | 6 | | | +----+---+ + + | | 1 | Pre-Procedu | | | | 0 | ral Timeout | | | | 3 | Completed | | | | 2 | | | +----+---+ + + | | 1 | First | | | | 0 | Inc/Proc St | | | | 3 | | | | | 8 | | | +----+---+ + + | | 1 | an stop | | | | 0 | data | | | | 5 | | | | | 7 | | | +----+---+ + + | | 1 | An Stop | Patient handed off to recovery nurse. | | | 0 | | | | | 2 | | | +----+---+ + + +------+ | Meds | +------+ + +--------+ | Name | Total | + +--------+ | propofol (DIPRIVAN) injection | 50 mg | | (bolus) (20 mL) | | + +--------+ | lidocaine 2% | 60 mg | + +--------+ | lactated ringers (LR) infusion | 200 mL | + +--------+ + + | Name | + + | N2O Flow Rate (L/Min) | + + | O2 Flow Rate (L/Min) | + + | Insp O2 | + + | Exp SEV | + + | Air Flow Rate (L/Min) | + + + + | No blood administrations on file. | + + +--------+ + + + | Type | Details | Placement | Removal | +--------+ + + + | Periph | 10/02/19; 918; Right (Season | 10/02/19918 by | 10/02/191116 by | | halina | AKASH); Hand; [id number] | Mily Canseco, | Season N AKASH Carrillo | | IV | catheter system; 20 gauge, 1 02/22 | RN | | | | in length; intradermal injection, | | | | | tolerated well; no longer | | | | | indicated; short term use; | | | | | 08/13/20; 1117 | | | +--------+ + + + [...] encounter OR Notes Anesthesia Postprocedure Evaluation - Ajay Ann MD - 10/02/2019 4:39 PM PDT ANESTHESIA POSTANESTHESIA EVALUATION Kae Jeter 84 y.o. female 1935 [id number] Procedure(s) LEFT EXTRACTION CATARACT W/ OR W/O LENS IMPLANT (Left Eye) Cooperates? Yes Mental Status Performs simple tasks. Respiratory Satisfactory - Airway patent (self maintained). Cardiovascular Satisfactory - Blood pressure and heart rate acceptable Temperature Satisfactory Pain Satisfactory N/V Control Satisfactory Hydration Satisfactory - No signs of dehydration Adverse Events ADVERSE EVENTS: No adverse events Vitals Value Taken Time Temp 36.2 C (97.2 F) 10/02/19 1102 Pulse 77 10/02/19 1117 Resp 16 10/02/19 1102 BP 133/82 10/02/19 1116 Arterial Line BP Arterial Line BP 2 SpO2 96 % 10/02/19 1117 Vitals shown include unvalidated device data. Electronically signed by Ajay Ann MD 10/02/2019 4:[address] [facility] Aj[facility] Ann MD at 2019 4:39 PM PDTAnesthesia Preprocedure Evaluation - Ajay Ann MD - 10/01/2019 7:06 P M PDT ANESTHESIA PREANESTHESIA EVALUATION Kae Jeter 84 y.o. female 1935 [id number] Procedure(s): LEFT EXTRACTION CATARACT W/ OR W/O LENS IMPLANT (Left Eye) Medical,anesthesia, drug, allergy histories reviewed, NPO [...] where noted below. (+) hypertension and essential . Pulmonary Negative except where noted below.(+) [...] agrees to proceed. PARQ. Electronically Signed by: Ajay Ann MD ESig date/time: 10/02/2019 10:16 AM PDT documented in this enco unter Miscellaneous Notes Anesthesia Post-op Handoff - Ajay Ann MD - 10/02/2019 11:03 AM PDT ANESTHESIA HANDOFF NOTE Kae Jeter 84 y.o. female 1935 [id number] LEFT EXTRACTION CATARACT W/ OR W/O LENS IMPLANT (Left Eye) HANDOFF NOTE Handoff Protocol Used: post-procedure [...] no supplemental O2 Multimodal analgesia: multimodal analgesia not used between 6 hours prior to anesthesia sta rt to PACU discharge Multimodal analgesia not used reason: A medical reason exists for NOT using multimodal anal gesia. The significant anesthesia concerns and VS in Epic were reviewed with the receiving team. Ajay Ann MD 10/02/2019 11:03 AM PDT [facility] Ajay Ann MD at 2019 11:03 AM PDTdocumented in this encounter Plan of Treatment +--------+ + + + + | Date | Type | Specialty | Care Team | Description | +--------+ + + + + | 12/10/ | Procedure | Cardiology | Alexadner Darnell, | | | 2019 | visit | | [address] | | | | | | [place], | | | | | | [place] [address] | | | | | | [phone] | | | | | | | | +--------+ + + + + | 03/18/ | Office | Cardiology | Ana Cross | | | 2020 | Visit | | [address] | | | | | | [address] | | | | | | [place] [address] | | | | | | [phone] | | | | | | | | +--------+ + + + + documented as of this encounter Visit Diagnoses Not on filedocumented in this encounter Administered Medications + + + +------+------+------+ | Medication Order | MAR | Action | Dose | Rate | Site | | | Action | Date | | | | + + + +------+------+------+ | lactated ringers (LR) infusion | Continue | 10/02/19 | | | | | at 10-100 mL/hr, Intravenous, | d by | 20 10:26 | | | | | CONTINUOUS, Starting Jackie 10/02/19 | Anesthes | AM PDT | | | | | at 0930, TKO., Pre-op | ia | | | | | + + + +------+------+------+ +---------+ +---+-------+---+ | New Bag | 10/02/19 | | 100 | | | | 20 9:19 | | mL/hr | | | | AM PDT | | | | +---------+ +---+-------+---+ +---+---+ | | | +---+---+ + +-------+ +-------+---+---+ | lidocaine (PF) 2% injection | Given | 10/02/19 | 60 mg | | | | Intravenous, PRN, Starting Jackie | | 20 10:27 | | | | | 10/02/19 at 1027, Anesthesia | | AM PDT | | | | | Intra-op | | | | | | + +-------+ +-------+---+---+ +---+---+ | | | +---+---+ + +-------+ +-------+---+---+ | propofol (DIPRIVAN) injection | Given | 10/02/19 | 50 mg | | | | Intravenous, PRN, Starting Jackie | | 20 10:32 | | | | | 10/02/19 at 1032, Anesthesia | | AM PDT | | | | | Intra-op | | | | | | + +-------+ +-------+---+---+ +---+---+ | | | +---+---+ documented in this encounter"
--- OUTSIDE RECORDS SUMMARY | ~2019-12-09 | XMS | Encounter Summary ---
Demographics + + + | Address | [address] | | | [place] [address] | + + + | Home Phone [...] Team Providers + +------+ + | Care Piano Accompanist Name | Role | Phone | + +------+ + | Jaz Desir | PCP | | | PA-C | | | + +------+ + Reason for Visit +--------+ + | Reason | Comments | +--------+ + | Other | [facility]gent Report | +--------+ + Encounter Details +--------+ + + + + | Date | Type | Department | Care Team | Description | +--------+ + + + + | 09/15/ | Documentati | [facility] | Raghu Montilla, | Other ([employer] | | 2019 | on | CARDIOLOGY [place] | Technologist | Urgent Report) | | | | [address] | | | | | | [place] | | | | | | [address] | | | | | | [phone] | | | +--------+ + + + [...] | | | | | | [place] [address] | | | | | | [phone] | | | | | | | | +--------+ + + + + | 03/18/ | Office | Cardiology | Ana Cross | | | 2020 | Visit | | [address] | | | | | | [address] | | | | | | [place] [address] | | | | | | [phone] | | | | | | | | +--------+ + + + + documented as of this encounter Visit Diagnoses Not on filedocumented in this encounter"
--- OUTSIDE RECORDS SUMMARY | ~2019-12-09 | XMS | Encounter Summary ---
Demographics + + + | Address | [address] [address] | | | [place] [address] | + + + | Home Phone | | + + + | Preferred Language | Unknown | + + + | Marital Status | | + + + | Nondenominational Affiliation | Unknown | + + + | Race | White | + + + | Ethnic Group | Not or | + + + Author + + + | Author | [facility] | | | and [place] | + + + | Organization | [facility] | | | [...] Team Providers + +------+ + | Care Knit Goods Washer Name | Role | Phone | + +------+ + | Jaz Desir | PCP | | | PA-C | | | + +------+ + Encounter Details +--------+---------+ + + + | Date | Type | Department | Care Team | Description | +--------+---------+ + + + | 09// | Surgery | [facility] | Power Aries Erica, | RIGHT EXTRACTION | | 2020 | | MED CTR OR INTRA OP | MD [address] | CATARACT W/ OR W/O | | | | [address] | [place], [place] | LENS IMPLANT | | | | [place], [place] | [address] | | | | | [address] | | | | | | [phone] | | | +--------+---------+ + + + [...] walking, reading, watching TV, working on the [employer], shaving, bathing, or shampooing your hair. Do [...] Lewis, M D [address] | [place] [address] | P: [phone] | F: [phone] | [employer] documented in this encounter Medications at Time [...] Steve MD, 10/30/2019 10:57 AM PDT [facility] Electronically signed by Aries Steve MD at 0 10/30/2019 10:57 AM PDTEdwardsAries MD - 10/27/2019 9:28 [address]PROVIDENCE [address] [id number] HISTORY AND PHYSICAL ARIES STEVE MD Patient: KAE JETER Admitting: ARIES STEVE MR #: [id number] LOC: PT TYPE: Adm Date: 10/30/2019 : [...] Transcribed on 10/27/2019 10:30:57 by mikel job# [id number] Confirmation #: [id number] signed by Aries Steve MD at 10/30/2019 [...] [place] | | | | | | [place] [address] | | | | | | [phone] | | | | | | | | +--------+ + + + + | 03/18/ | Office | Cardiology | Ana Cross | | | 2020 | Visit | | [address] | | | | | | [address] | | | | | | [place] [address] | | | | | | [phone] | | | | | | | [...] | | | | First dose on [facility] 10/30/19 at | | | | [...] | | t | | PRN, Starting [facility] 10/30/19 at | | AM PDT [...] | | | | | Starting [facility] 10/30/19 at 0916, For | | [...] glucose < 50, | | | Starting [facility] 10/30/19 at 0916, | | | [...] | | | t | | Starting [facility] 10/30/19 at 1145, | | AM [...] | | | | | Starting [facility] 10/30/19 at 0916, For | | [...] | | | | | Starting [facility] 10/30/19 at 0916, For | | [...]
--- OUTSIDE RECORDS SUMMARY | ~2019-12-09 | XMS | Encounter Summary ---
Demographics + + + | Address | [address] | | | [place] [address] | + + + | Home Phone [...] + + + | Author | [facility] | | | and [place] | + + + | Organization | [facility] | | [...] Team Providers + +------+ + | Care Infrastructure Security Architect Name | Role | Phone | + +------+ + | Jaz Desir | PCP | | | PA-C | | | + +------+ + Reason for Visit + + + | Reason | Comments | + + + | Screening For | | | Communicable Disease | | + + + Encounter Details +--------+ + + + + | Date | Type | Department | Care Team | Description | +--------+ + + + + | 10/24/ | Hospital | [facility] [place] | | Pre-op testing | | 2020 | Encounter | [facility] | | (Primary Dx) | | | | CARE [address] | | | | | | [place] | | | | | | [address] | | | | | | [phone] | | | +--------+ + + + [...] + + documented as of this encounter Medications at Time of Discharge [...] documented as of this encounter Miscellaneous Notes [facility] Triage Notes - Russ Brady RN - 10/25/2019 7:32 AM PDTPRE-PROCEDURE COVID TEST ( Asymptomatic Testing Only) Affix Patient Label [] Photo ID Verified Patient Name:Kae Stacia Jeter Provider:No name on file. :1935 Date:10/25/19 MyChart: Pending Activation Symptom Screen: [] Patient identified as having at least one of the symptoms below: ? Cough, Shortness of Breath, Fever >100.4, Chills, Sore Throat, Body Aches or Muscle Pain, Headache, nausea, vomiting, diarrhea, change in smell and/or taste [x] Patient is not symptomatic of symptoms consistent with COVID-19 Testing Protocol: MA/RN Proceed to testing if ANY of the following conditions are present: DRIVE THRU SWAB SCREENING [x] Asymptomatic, regardless of age, pre-procedure screening only [] Asymptomatic - testing requested by authorized [facility] personnel, [facility] Infection Prevention Nurse or Caregiver Health [] Asymptomatic, regardless of age, pre-travel screening only [] Asymptomatic, regardless of age, housing screening PROVIDER EVALUATION REQUIRED [] Patient identified as having symptoms associated with COVID-19, patient encouraged to notify their PCP or procedure ordering physician of symptoms. Discharge: [x] Social Distancing/Quarantine Guidelines documented in this encounter [...] [place], | | | | | | [place] [address] | | | | | | [phone] | | | | | | | | +--------+ + + + + | 03/18/ | Office | Cardiology | Ana Cross | | | 2020 | Visit | | [address] | | | | | | [address] | | | | | | [place] [address] | | | | | | [phone] | | | | | | | [...] in this encounter Results Coronavirus (COVID-19) NAAT (10/25/2019 7:31 AM PDT) + + + + + [...] | | | | cs determined by [facility] | | | | | | Laboratories. [...] + | Performed at: 01 - [address] [place] [address], | REFERENCE LAB | | [place], [place] [id number] Air Export Operations Agent: Geovany Yost MD, Phone: | [facility] - [facility] | | [phone] | | + + + + + + + + | Performing | Address | City/State/Zipcode | Phone Number | | Organization | | | | + + + + + | REFERENCE LAB | [address] | [place], [place] | [phone] | | [facility] | [place] | [address] | | + + + + + documented in this encounter Visit Diagnoses + + | Diagnosis | + + | Pre-op testing - Primary Preoperative examination, unspecified | + + documented in this encounter"
--- OUTSIDE RECORDS SUMMARY | ~2019-12-09 | XMS | Encounter Summary ---
Demographics + + + | Address | [address] [facility] [facility] | | | [place] [address] | + + + | Home Phone [...] Team Providers + +------+ + | Care Prosthetic Makeup Designer Name | Role | Phone | [...] | | | | | [address] | [place] | | | | | [place] | [address] | | | | | [address] | | | | | | [phone] | | | +--------+ + + + [...] by | | halina | AKASH); Hand; [id number] | Mily Canseco, | Season N AKASH [...] EVALUATION Kae Jeter 84 y.o. female 1935 [id number] Procedure(s) LEFT EXTRACTION CATARACT W/ OR W/O [...] Ann MD 10/02/2019 4:39 PM PDT [facility] Ajay Ann MD at 2019 4:39 PM PDTAnesthesia Preprocedure Evaluation - Ajay Ann MD - 10/01/2019 7:06 P M PDT ANESTHESIA PREANESTHESIA EVALUATION Kae Jeetr 84 y.o. female 1935 [id number] Procedure(s): LEFT EXTRACTION CATARACT W/ OR W/O [...] NOTE Kae Jeter 84 y.o. female 1935 [id number] LEFT EXTRACTION CATARACT W/ OR W/O LENS [...] Ajay Ann MD 10/02/2019 11:03 AM PDT [facility] Ann MD at [...] | | | | | | [place], | | | | | | [place] [address] | | | | | | [phone] | | | | | | | | +--------+ + + + + | 03/18/ | Office | Cardiology | Ana Cross | | | 2020 | Visit | | [address] | | | | | | [address] | | | | | | [place] [address] | | | | | | [phone] | | | | | | | [...]
--- OUTSIDE RECORDS SUMMARY | ~2019-12-09 | XMS | Encounter Summary ---
Demographics + + + | Address | [address] [facility] [facility] | | | [place] [address] | + + + | Home Phone [...] Team Providers + +------+ + | Care Cross Cut Sawyer Name | Role | Phone | + [...] | | | | | unspecified | [place], | [place], [place] | | | | | cardiac | [place] [address] | [address] | | | | | arrhythmia | Phone: | Phone: | | | | | type | [phone] | [phone] | | | | | Procedures | Fax: | Fax: | | | | | ECHO | [phone] | [phone] | | | | | Complete | [...] | | (HCC) | [address] | [place], [place] | | | | | Procedures | Ave | [address] Phone: | | | | | CONSULT & [address] | [place], | [phone] | | | | | day monitor | [place] | Fax: | | | | | | [address] | [phone] | | | | | | Phone: | | | | | | | [phone] | | | | | | | Fax: | | | | | | | [phone] | | + +--------+ + + + + Encounter Details +--------+---------+ + + + | Date | Type | Department | Care Team | Description | +--------+---------+ + + + | 03/12/ | Office | [facility] | Martín Auguste MD | Tachycardia; Cardiac | | 2019 | Visit | CARDIOLOGY [place] | [address] | arrhythmia, | | | | [address] | [place] [address] | unspecified cardiac | | | | [place], [place] | [phone] | arrhythmia type | | | | [address] | | | | | | [phone] | | | +--------+---------+ + + + [...] once a day. Follow-up with Patria toledo Durbin for review the results and the effect [...] [place] | | | | | | [place] [address] | | | | | | [phone] | | | | | | | | +--------+ + + + + | 03/18/ | Office | Cardiology | Ana Cross | | | 2020 | Visit | | [address] | | | | | | [address] | | | | | | [place] [address] | | | | | | [phone] | | | | | | | [...]
--- OUTSIDE RECORDS SUMMARY | ~2019-12-09 | XMS | Encounter Summary ---
Demographics + + + | Address | [address] | | | [place] [address] | + + + | Home Phone [...] Team Providers + +------+ + | Care Solid Waste Facility Operator Name | Role | Phone | + +------+ + | Jaz Desir | PCP | | | PA-C | | | + +------+ + Reason for Visit +--------+ + | Reason | Comments | +--------+ + | Other | [employer] Alert | +--------+ + Encounter Details +--------+ + + + + | Date | Type | Department | Care Team | Description | +--------+ + + + + | 09/17/ | Documentati | 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
--- OUTSIDE RECORDS SUMMARY | ~2019-12-09 | XMS | Encounter Summary ---
Demographics + + + | Address | [address] | | | [place] [address] | + + + | Home Phone | | + + + | Preferred Language | Unknown | + + + | Marital Status | | + + + | Muslim Affiliation | Unknown | + + + | Race | White | + + + | Ethnic Group | Not or | + + + Author + + + | Author | [facility] | | | and [place] | + + + | Organization | [facility] | | | [...] Providers + +------+ + | Care Supervisor [place] Name | Role | Phone | + [...] + + | 08/27/ | Office | [facility] | Ana Cross | Tachycardia (Primary | | 2020 | Visit | CARDIOLOGY [place] | [address] | Dx); First degree | | | | [address] | [address] | AV block; Premature | | | | [address] | [place] [address] | atrial contractions; | | | | [place] | [phone] | Essential | | | | [address] | | hypertension; | | | | [phone] | | Nonrheumatic aortic | | | [...] non fasting labs to be done at [facility] in one month , but can drink [...] to follow up reports fro m her cigar bander that she may have atrial fibrillation as [...] evaluation for planned cataract surgery from her cigar bander Dr. Steve. Today, I reviewed all previous [...] weak. I r eceived notification from her cigar bander, Dr. Steve about her possible atrial fib, [...] use. Exer cises seldom . Lives in [place] Outpatient Medications Prior to Visit Medication Sig [...] mmHg v alve not well visualized, trace WI EKG/EVENT MONITOR Event Monitor 2 week : [...] and anterior le ads.Rate 90 bpm , WI 254, QRS 74 ms, QTC 443, tracing personally reviewed by me EK07/07/2019:( Cardizem 180 mg) Sinus tachycardia with first-degree AV block, ongoing lo w voltage QRS leads III, aVL, aVF and anterolateral leads. Rate 103 bpm, WI 236 ms, QRS 75 ms, QTC 403 ms, tracing personally reviewed by me, and compared to EKG performed in February, rate is less well-controlled EK08/28/2019 (Cardizem 180/digoxin 125 )sinus rhythm with prolonged first-degree AV block. Rate 76 bpm, WI 346 ms, QRS 68 ms, QTC 391 ms, tracing personally reviewed by me and denise red to EKG performed in June, first-degree AV block has increased, and rate better controlled LABS Labs: 12/10/2018:( [facility] ER) CBC: WBC 5.7, RBC 4.9, hemoglobin 16.3, hematocrit 47.4, platel ets 202. CMP: Glucose 121, BUN 10, creatinine 0.55, GFR 106, sodium 137, potassium 3.2, alb umin 3.5 bilirubin 0.9, AST 24, ALT 15, alk phos 99, troponin T i <0.010, BNP 124 Labs: 12/25/2018: ( [facility] ER):CBC: WBC 7.6, RBC 4.9, hemoglobin [...] for planned cat aract surgery, as her cigar bander, Dr. Steve, had thought she might be [...] care with Dr. Darnell as her primary airplane electrical repairer who comes to [place] on 12/02/2019 so that she has a complete cardiology team of a airplane electrical repairer, as well as a ca rdiology nurse [...] notes for [facility] care [facility] 08/29/2019 docume nted in this [...] | | | | | | [place] [address] | | | | | | [phone] | | | | | | | | +--------+ + + + + | 03/18/ | Office | Cardiology | Ana Cross | | | 2020 | Visit | | [address] | | | | | | [address] | | | | | | [place] [address] | | | | | | [phone] | | | | | | | [...] J[place]ILL[place] | | | | | | ([phone]) on 08/28/2019 | | | | | [...]
--- OUTSIDE RECORDS SUMMARY | ~2019-12-09 | XMS | Encounter Summary ---
Demographics + + + | Address | [address] | | | [place] [address] | + + + | Home Phone | | + + + | Preferred Language | Unknown | + + + | Marital Status | | + + + | Adventism Affiliation | Unknown | + + + | Race | White | + + + | Ethnic Group | Not or | + + + Author + + + | Author | [facility] | | | and [place] | + + + | Organization | [facility] | | | [...] Team Providers + +------+ + | Care Veterans' Coordinator Name | Role | Phone | + +------+ + | Jaz Desir | PCP | | | PA-C | | | + +------+ + Reason for Visit + + + | Reason | Comments | + + + | Follow-up | | + + + Encounter Details +--------+ + + + + | Date | Type | Department | Care Team | Description | +--------+ + + + + | 11/09/ | Virtual | [facility] | Ana Cross | First degree AV | | 2019 | Office | CARDIOLOGY [place] | [address] | block (Primary Dx); | | | Visit | [address] | [address] [place] [place] | 2nd degree AV block; | | | | [place] | [place] [address] | Tachycardia; | | | | [address] | [phone] | Essential | | | | [phone] | | hypertension; Mild | | | [...] Hypokalemia | +--------+ + + + + Social [...] + + + | Blood Pressure | 136/81 | 11/10/2019 11:08 AM | | | | | PDT | | + + + + + | Pulse | 90 | 11/10/2019 11:08 AM | | | | | PDT | | + + + + + | Temperature | - | - | | + + + + + | Respiratory Rate | - | - | | + + + + + | Oxygen Saturation | 98% | 11/10/2019 11:08 AM | | | | | PDT | | + + + + + | Inhaled Oxygen | - | - | | | Concentration | | | | + + + + + | Weight | 50.3 kg (110 lb 12.8 | 11/10/2019 11:08 AM | | | | oz) | PDT | | + + + + + | Height | 152.4 cm (5') | 11/10/2019 11:08 AM | | | | | PDT | | + + + + + | Body Mass Index | 21.64 | 11/10/2019 11:08 AM | | | | | PDT | | + + + + + documented in this encounter Patient Instructions Patient Instructions Ana Cross FNP - 11/10/2019 11:00 AM PDTYour labs looked go od that you had done in September ,and on Nov 05 I made no changes to medications See Dr. Darnell back on December 01 as scheduled Call the [facility] sleep lab, and let me know if they are not taking new patients, and I will refer you to [facility] documented in this encounter Progress Notes Ana Cross FNP - 11/10/2019 11:00 AM PDTFormatting of this note might be differe nt from the original. Date of visit: 11/10/2019 Primary Care Physician: Jaz Desir PA-C CHIEF COMPLAINT: Chief Complaint Patient presents with Follow-up Kae Brooksshweta Jeter has independently initiated the visit. Kaefely Rodriguez Corona zapata confirmed her choice to initiate care by, and consents to receive care by Telephone. Participants: Patient Participant is currently at the permanent address on file All medical advice and/or management options were discussed 11/10/2019. Clinical discussion length with provider (including additional time spent for relevant sunitha t review to patient's care): 11-20 minutes of medical discussion via telephone visit ([id number]) Patient has not been seen in office within the past 7 days, and outcome of this call is not to recommend soonest available office visit. Return in about 1 month (around 12/10/2019) for bring medications to all clinic visits. Subjective: Patient ID: Kae Jeter is a 84 y.o. female. CC: Chief Complaint Patient presents with Follow-up HPI: see below The following portions of the patient's history were reviewed and updated as appropriate: Allergies, current medications, family history, past medical history, past social history, past surgical history and problem list. Assessment & Plan See below Ana Cross, MYLES 11/10/2019 HISTORY OF PRESENT ILLNESS: Ms. Kae Jeter is an 84 year old woman who is forming a telephonic visit with me today to follow-up on her hypokalemia and labs Her daughter Briseida who is primary trade economist, was also involved in our phone visit today , and she contributed to history,as her mother is very frail, and also has a hearing defici t. Today, I reviewed all previous documentation available [...] weak. I r eceived notification from her mini baccarat dealer, Dr. Steve about her possible atrial fib, an d for cardiac risk evaluation for cataract surgery on August 20. I saw her on August 27 to follow-up on reports from her mini baccarat dealer that she may have atr ial fibrillation and ordered her a 2-week event monitor,and her EKG at that time had shown a sinus rhythm with prolonged first-degree AV block but no atrial fib or flutter. Her labs p erformed on August 25 after she had been on potassium 20 mEq twice daily had shown a normal pot assium of 4.4. An alert from her event monitor on September 07 for bradycardia and second-degree AV block and Dr. Auguste had recommended stopping digoxin, and I called her daughter on September 08 and chayito d her to stop the digoxin. She continued [...] last dose of diltiazem was on September 15,and that she had been progressively weaker she had no chest pain no lower extremity pain or swelling or no fever or cough. She was found to be very hypokalemic with a potassium of 2.5 with normal renal function and troponin's. I saw her last on September 30 when she seemed much improved heart rate with now only first-de gree AV block and hypokalemia resolved . I had continued Cardizem 180 mg daily for multiple episodes of SVT, and stopped her digox in and chlorthalidone and ordered follow-up labs. Since I saw her last , she was able to get her cataract surgery done on October 01, and h er second cataract surgery completed on October 29. Unfortunately just prior to having her second cataract surgery, she tripped after going to the bathroom, and though they completed the surgery, she did break her wrist. She also apparently had a spell a week ago when she had been standing for a considerable period of time trying to roasted potato, and had become weak and ended up on the floor, but her daughter came, and got her up, and after she ate, she felt better. Her heart rate at home has remained in the 90's, and she denies any palpitations, chest dutch n, pedal edema, dyspnea with exertion, lightheadedness, or syncope. She also denies any sig ns or symptoms of stroke or TIA. They also have been monitoring her pulse ox at home, and he r daughter reports it has been in the mid to high 90's She exercises minimally due to limited mobility and walker. She denies any smoking history, drink 2 servings of tea lately ,and drinks a beer every 2 -3 month, and denies use of recreational or illicit drugs . I reviewed her medications with her and her daughter over the phone today. They have not heard from the [facility] sleep disorders clinic, and also did not toni l them REVIEW OF SYSTEMS: Negative except for pertinent [...] use. Exer cises seldom . Lives in [place] Outpatient Medications Prior to Visit Medication Sig [...] EXAM: Wt Readings from Last 3 Encounters: 11/10/19 50.3 kg (110 lb 12.8 oz) 10/30/19 51.7 kg (114 lb) 10/02/19 51.7 kg (114 lb) Temp Readings from Last 3 Encounters: 10/30/19 36.4 C (97.5 F) (Temporal) 10/02/19 36.2 C (97.2 F) 10/01/19 36.7 C (98 F) BP Readings from Last 3 Encounters: 11/10/19 136/81 10/30/19 141/77 10/02/19 133/82 Pulse Readings from Last 3 Encounters: 11/10/19 90 10/30/19 70 10/02/19 78 GENERAL: Frail elderly woman , in no [...] is less well controlled LABS Labs: 12/10/2018:( [facility] ER) CBC: WBC 5.7, RBC 4.9, hemoglobin 16.3, hematocrit 47.4, platel ets 202. CMP: Glucose 121, BUN 10, creatinine 0.55, GFR 106, sodium 137, potassium 3.2, alb umin 3.5 bilirubin 0.9, AST 24, ALT 15, alk phos 99, troponin T i <0.010, BNP 124 Labs: 12/25/2018: ( [facility]):CBC: WBC 7.6, RBC 4.9, [...] GFR 85. Digoxin 0.88 Labs: 09/17/2019: ( [facility]) : 12:38: CBC: WBC 10.2, RBC [...] phos 110, total bili 0.8, albumin 2.9 Labs: : 10/15/2019::( Off chlorthalidone/ on potassium replacement) BMP: Sodium 141, potassi um 4.9, chloride 106, glucose 82, calcium 8.5, BUN 19, creatinine 0.63, GFR 90 Labs: 11/06/2019: BMP: Sodium 141, potassium 4.4, chloride 105, glucose 87, calcium 8.3, BUN 15, creatinine 0.54, GFR 108. Thyroid: TSH 1.33 ASSESSMENT & PLAN: She was in a telephone visit with me today to follow-up on her labs, she has problems as detailed below Her labs performed on October 14 and again on November 05 are detailed above and show a no rmal CMP, and a normal BMP with potassium and other electrolytes now normal with normal tammie l function, and her TSH was also normal. The results of her labs with her, and as discussed in HPI, she has continued to feel improv ed with normal potassium with no further episodes of weakness and no further ER visit. Her cardiac medications, continued diltiazem 180 mg daily and potassium 20 mEq twice daily with 10 mEq pills that she has difficulty swallowing the larger pills I again encouraged her to use her Advair as prescribed twice daily to help decrease inciden ce of asthma exacerbations. If she continues to have fast and slow heart rates, with increasing 2nd degree AVB, she ma y need referral to EP for consideration of pacemaker. I had referred her to [facility] for evaluation of sleep apnea, w hich can contribute to bradycardia, and atrial tachycardias, have not heard back, and I have requested that they call the sleep lab today, and if they are not accepting any new patient s, to let me know, and I will refer her to the [facility] instead. She will see Dr. Darnell next on December 01 to establish with him as her primary cardiology, as she does not wish to travel to [place] to see Dr. Auguste on a regular basis. She will then have complete cardiology team of a family medicine chair, as well as a cardiology odilon oliveira practitioner. 1. First degree AV block 2. 2nd degree AV block 3. Tachycardia 4. Essential hypertension 5. Mild tricuspid regurgitation by prior echocardiogram 6. Moderate mitral regurgitation by prior echocardiogram 7. Nonrheumatic aortic valve insufficiency 8. Premature atrial contractions 9. Risk factors for obstructive sleep apnea 10. Palpitations 11. Hypokalemia No orders of the defined types were placed in this encounter. The following portions of the patient's history were personally reviewed by me and updated as appropriate: EKG tracings, other specialty provider and PCP notes,any Hospital admission and discharge summaries, any ER records , current and previous cardiac testing and procedure reports and d colin, medication bottles reviewed over the phone today Allergies, current medications.labs Family history, past medical history, past social history, past surgical history. Problem list. This encounter was dictated with voice recognition software and may contain inadvertent rec ognition errors. Portions of this chart may have been copied from previous notes for continuity of care purp ron MEEKS [facility] Cardiology 11/10/2019 docume nted in this encounter Plan of [...] | | | | | | [place] [address] | | | | | | [phone] | | | | | | | | +--------+ + + + + | 03/18/ | Office | Cardiology | Ana Cross | | | 2020 | Visit | | [address] | | | | | | [address] | | | | | | [place] [address] | | | | | | [phone] | | | | | | | [...] + + documented in this encounter Results LABS - EXTERNAL SCAN (11/06/2019 12:00 AM PDT) + + + | Narrative | Performed At | + + + | Ordered by an | | | unspecified provider. | | + + + documented in this encounter Visit Diagnoses + + | Diagnosis | + + | First degree AV block - Primary First degree atrioventricular block | + + | 2nd degree AV block Other second degree atrioventricular block | + + | Tachycardia Tachycardia, unspecified | + + | Essential hypertension Unspecified essential hypertension | + + | Mild tricuspid regurgitation by prior echocardiogram Diseases of tricuspid valve | + + | Moderate mitral regurgitation by prior echocardiogram Mitral valve disorders | + + | Nonrheumatic aortic valve insufficiency Aortic valve disorders | + + | Premature atrial contractions Supraventricular premature beats | + + | Risk factors for obstructive sleep apnea | + + | Palpitations | + + | Hypokalemia Hypopotassemia | + + documented in this encounter"
--- OUTSIDE RECORDS SUMMARY | ~2019-12-09 | XMS | Encounter Summary ---
Demographics + + + | Address | [address] | | | [place] [address] | + + + | Home Phone | | + + + | Preferred Language | Unknown | + + + | Marital Status | | + + + | Spiritism Affiliation | Unknown | + + + [...] Team Providers + +------+ + | Care Magazine Grinder Loader Name | Role | Phone | + [...] + + | 02/13/ | Documentati | [facility] | Hermelinda Mcgovern, | Other (urgent | | 2019 | on | CARDIOLOGY SPRINGER | Technologist | report) | | | | [address] | | | | | | [place], [place] | | | | | | [address] | | | | | | [phone] | | | +--------+ + + + [...] | | | | | | [place] [address] | | | | | | [phone] | | | | | | | | +--------+ + + + + | 03/18/ | Office | Cardiology | America Ana | | | 2020 | Visit | | [address] | | | | | | [address] | | | | | | [facility] [place] [address] | | | | | | [phone] | | | | | | | | +--------+ + + + + documented as of this encounter Visit Diagnoses Not on filedocumented in this encounter"
--- OUTSIDE RECORDS SUMMARY | ~2019-12-09 | XMS | Encounter Summary ---
Demographics + + + | Address | [address] | | | [place] [address] | + + + | Home Phone [...] Author + + + | Author | [facility] | | | and [place] | + + + | Organization | [facility] | | | [...] Team Providers + +------+ + | Care Hospitality Team Member Name | Role | Phone | [...] + + | 07/06/ | Office | [facility] | Ana Cross | Tachycardia (Primary | | 2019 | Visit | CARDIOLOGY [place] | [address] | Dx); First degree | | | | [address] | [place] | AV block; Premature | | | | [address] | [place] [address] | atrial contractions; | | | | [place] | [phone] | Essential | | | | [address] | | hypertension; | | | | [phone] | | Nonrheumatic aortic | | | [...] non fasting labs to be done at [facility] in one month , but can drink water prior to [facility] ng labs done . Do not take your digoxin the day of your lab draw, take it after lab drawn I made changes to medications by adding digoxin 125 mcg daily in the morning See me back in 6 weeks, and I will have you establish care with Dr. 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 documented in this encounter Progress Notes Ana [...] pulmonary function since her asthma exacerbation in [facility]. She reports occasional mild pedal edema [...] use. Exer cises seldom . Lives in [place] Outpatient Medications Prior to Visit Medication Sig [...] aVF and anterolateral leads. Rate 103 bpm, KS 236 ms, QRS 75 ms, QTC 403 ms, tracing personally reviewed by me, and compared to EKG performed in February, rate is less well-controlled LABS Labs: 12/10/2018:( [facility] ER) CBC: WBC 5.7, RBC 4.9, hemoglobin 16.3, hematocrit 47.4, platel ets 202. CMP: Glucose 121, BUN 10, creatinine 0.55, GFR 106, sodium 137, potassium 3.2, alb umin 3.5 bilirubin 0.9, AST 24, ALT 15, alk phos 99, troponin T i <0.010, BNP 124 Labs: 12/25/2018: ( [facility] ER):CBC: WBC 7.6, RBC 4.9, [...] care with Dr. 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 She has an [...] notes for [facility] care [facility]/2019 docume nted in this encounter [...] | | | | | | [place] [address] | | | | | | [phone] | | | | | | | | +--------+ + + + + | 03/18/ | Office | Cardiology | IjeomaAna wade | | | 2020 | Visit | | [address] | | | | | | [address] | | | | | | [place] [address] | | | | | | [phone] | | | | | | | [...]
--- OUTSIDE RECORDS SUMMARY | ~2019-12-09 | XMS | Encounter Summary ---
Demographics + + + | Address | [address] | | | [place] [address] | + + + | Home Phone | | + + + | Preferred Language | Unknown | + + + | Marital Status | | + + + | Worship Affiliation | Unknown | + + + | Race | White | + + + | Ethnic Group | Not or | + + + Author + + + | Author | [facility] | | | and [place] | + + + | Organization | [facility] | | [...] Team Providers + +------+ + | Care Claim Manager Name | Role | Phone | [...] + | 09/17/ | Documentati | [facility] | Raghu Montilla, | Other ([employer] | | 2020 | on | CARDIOLOGY [facility] | Technologist | Alert) | | | | [address] | | | | | | [place] | | | | | | [address] | | | | | | [phone] | | | +--------+ + + + [...] | | | | | | [place] [address] | | | | | | [phone] | | | | | | | | +--------+ + + + + | 03/18/ | Office | Cardiology | Ana Cross | | | 2020 | Visit | | [address] | | | | | | [address] | | | | | | [place] [address] | | | | | | [phone] | | | | | | | | +--------+ + + + + documented as of this encounter Visit Diagnoses Not on filedocumented in this encounter"
--- OUTSIDE RECORDS SUMMARY | ~2019-12-09 | XMS | Encounter Summary ---
Demographics + + + | Address | [address] | | | [place] [address] | + + + | Home Phone [...] + | Author | [facility] | | | and [place] | + + + | Organization | [facility] | | | [...] Team Providers + +------+ + | Care Core Dipper Name | Role | Phone | + [...] + + | 08/17/ | Telephone | [facility] | Ana Cross | Testing | | 2020 | | CARDIOLOGY [place] | [address] | | | | | [address] | [address] | | | | | [place] | [place] [address] | | | | | [address] | [phone] | | | | | [phone] | | | +--------+ + + + [...] encounter Miscellaneous Notes Telephone Encounter - [place]a, [place] COR[facility] - 08/18/2019 4:58 PM PDTI called and [...] [place] | | | | | | [place] [address] | | | | | | [phone] | | | | | | | | +--------+ + + + + | 03/18/ | Office | Cardiology | Ana Cross | | | 2020 | Visit | | [address] | | | | | | [address] | | | | | | [place] [address] | | | | | | [phone] | | | | | | | | +--------+ + + + + documented as of this encounter Visit Diagnoses Not on filedocumented in this encounter"
--- OUTSIDE RECORDS SUMMARY | ~2019-12-09 | XMS | Encounter Summary ---
Demographics + + + | Address | [address] | | | [place] [address] | + + + | Home Phone [...] Team Providers + +------+ + | Care Delicatessen Manager Name | Role | Phone | [...] + + | 10/16/ | Telephone | [facility] | Ana Cross | LABS | | 2020 | | CARDIOLOGY [place] | [address] | | | | | [address] | [address] | | | | | [place], [place] | [place] [address] | | | | | [address] | [phone] | | | | | [phone] | | | +--------+ + + + [...] | | | | | | [place] [address] | | | | | | [phone] | | | | | | | | +--------+ + + + + | 03/18/ | Office | Cardiology | Ana Cross | | | 2020 | Visit | | [address] | | | | | | [address] | | | | | | [place] [address] | | | | | | [phone] | | | | | | | | +--------+ + + + + documented as of this encounter Visit Diagnoses Not on filedocumented in this encounter"
--- OUTSIDE RECORDS SUMMARY | ~2019-12-09 | XMS | Encounter Summary ---
Demographics + + + | Address | [address] | | | [place] [address] | + + + | Home Phone | | + + + | Preferred Language | Unknown | + + + | Marital Status | | + + + | Congregation Affiliation | Unknown | + + + | Race | White | + + + | Ethnic Group | Not or | + + + Author + + + | Author | [facility] | | | and [place] | + + + | Organization | [facility] | | [...] Team Providers + +------+ + | Care Color Tester Name | Role | Phone | [...] + + | 02/06/ | Procedure | [facility] | Jaz Desir | Atrial fibrillation, | | 2019 | visit | CARDIOLOGY [place] | CAROL Beckham | unspecified type | | | | [address] | [address] | ([facility]) | | | | [address] | [place], [place] | | | | | [place], [place] | [address] | | | | | [address] | [phone] | | | | | [phone] | | | | | | | Inga Phelps DO | | | | | | [address] | | | | | | [address] [place] | | | | | | [id number] | | | | | | | [...] of this encounter Progress Notes Sandra Carrillo, Textile Machine Operator - 02/06/2019 2:15 PM PST14 day cardiac event monitor placed on patient. EOB/Billing information discussed. Instructions given and understood. P atient instructed to call [employer] for any billing or monitor questions. JDW:OB/GYN PHYSICIAN-AAMA. doc umented in this encounter Plan of Treatment +--------+ + + + + | Date | Type | Specialty | Care Team | Description | +--------+ + + + + | 12/10/ | Procedure | Cardiology | [place], Alexander M, | | | 2019 | visit | | [address] | | | | | | [place], | | | | | | [place] [address] | | | | | | [phone] | | | | | | | | +--------+ + + + + | 03/18/ | Office | Cardiology | Ana Cross | | | 2020 | Visit | | [address] | | | | | | [address] | | | | | | [place] [address] | | | | | | [phone] | | | | | | | | +--------+ + + + + documented as of this encounter Visit Diagnoses + + | Diagnosis | + + | Atrial fibrillation, unspecified type (HCC) | + + documented in this encounter"
--- OUTSIDE RECORDS SUMMARY | ~2019-12-09 | XMS | Encounter Summary ---
Demographics + + + | Address | [address] | | | [place] [address] | + + + | Home Phone | | + + + | Preferred Language | Unknown | + + + | Marital Status | | + + + | Temple Affiliation | Unknown | + + + | Race | White | + + + | Ethnic Group | Not or | + + + Author + + + | Author | [facility] | | | and [place] | + + + | Organization | [facility] | | | [...] Team Providers + +------+ + | Care Clinical Counselor Name | Role | Phone | + [...] + + | 10/21/ | Telephone | [facility] | Ana Cross | Lab Results | | 2019 | | CARDIOLOGY [place] | [address] | | | | | [address] | [address] | | | | | [address] | [place] [address] | | | | | [address] | [phone] | | | | | [phone] | | | +--------+ + + + [...] [place] | | | | | | [place] [address] | | | | | | [phone] | | | | | | | | +--------+ + + + + | 03/18/ | Office | Cardiology | Ana Cross | | | 2020 | Visit | | [address] | | | | | | [address] | | | | | | [place] [address] | | | | | | [phone] | | | | | | | | +--------+ + + + + documented as of this encounter Visit Diagnoses Not on filedocumented in this encounter"
--- OUTSIDE RECORDS SUMMARY | ~2019-12-09 | XMS | Encounter Summary ---
Demographics + + + | Address | [address] | | | [place] [address] | + + + | Home Phone | | + + + | Preferred Language | Unknown | + + + | Marital Status | | + + + | Presybeterian Affiliation | Unknown | + + + [...] Team Providers + +------+ + | Care Front Desk Host Name | Role | Phone | + [...] + + | 09/11/ | Documentati | [facility] | Hermelinda Mcgovern, | Other (urgent | | 2020 | on | CARDIOLOGY [place] | Technologist | report) | | | | [address] | | | | | | [place], [place] | | | | | | [address] | | | | | | [phone] | | | +--------+ + + + [...] | | | | | | [place] [address] | | | | | | [phone] | | | | | | | | +--------+ + + + + | 03/18/ | Office | Cardiology | Ana Cross | | | 2020 | Visit | | [address] | | | | | | [address] | | | | | | [place] [address] | | | | | | [phone] | | | | | | | | +--------+ + + + + documented as of this encounter Visit Diagnoses Not on filedocumented in this encounter"
--- OUTSIDE RECORDS SUMMARY | ~2019-12-09 | XMS | Encounter Summary ---
Demographics + + + | Address | [address] | | | [place] [address] | + + + | Home Phone | | + + + | Preferred Language | Unknown | + + + | Marital Status | | + + + | Yarsani Affiliation | Unknown | + + + | Race | White | + + + | Ethnic Group | Not or | + + + Author + + + | Author | [facility] | | | and [place] | + + + | Organization | [facility] | | [...] Team Providers + +------+ + | Care Deliverer Pharmacy Name | Role | Phone | + [...] + + | 10/24/ | Hospital | [facility] [place] | | Pre-op testing | | 2020 | Encounter | [facility] | | (Primary Dx) | | | | CARE [address] | | | | | | [place] | | | | | | [address] | | | | | | [phone] | | | +--------+ + + + [...] [] Asymptomatic - testing requested by authorized [facility] personnel, [facility] Infection Prevention Nurse or Caregiver Health [...] [place], | | | | | | [place] [address] | | | | | | [phone] | | | | | | | | +--------+ + + + + | 03/18/ | Office | Cardiology | Ana Cross | | | 2020 | Visit | | [address] | | | | | | [address] | | | | | | [place] [address] | | | | | | [phone] | | | | | | | [...] + | Performed at: 01 - [address] [place] [address], | REFERENCE LAB | | [place], [place] [id number] Any Commodity Buyer: Geovany Yost MD, Phone: | [facility] | | [phone] | | + + + + + + + + | Performing | Address | City/State/Zipcode | Phone Number | | Organization | | | | + + + + + | REFERENCE LAB | [address] | [place], [place] | [phone] | | [facility] | Chiquis Szymanski | [address] | | + + + + + documented in this encounter Visit Diagnoses + + | Diagnosis | + + | Pre-op testing - Primary Preoperative examination, unspecified | + + documented in this encounter"
--- OUTSIDE RECORDS SUMMARY | ~2019-12-09 | XMS | Encounter Summary ---
Demographics + + + | Address | [address] | | | [place] [address] | + + + | Home Phone | | + + + | Preferred Language | Unknown | + + + | Marital Status | | + + + | Rastafari Affiliation | Unknown | + + + [...] Team Providers + +------+ + | Care Orthotic Finish Grinding Technician Name | Role | Phone | [...] [address] | | | | | | ([facility]) | [address] | [place], [place] | | | | | Procedures | Ave | [address] Phone: | | | | | CONSULT & [address] | [place], | [phone] | | | | | day monitor | [place] | Fax: | | | | | | [address] | [phone] | | | | | | Phone: | | | | | | | [phone] | | | | | | | Fax: | | | | | | | [phone] | | + +--------+ + + + + Encounter Details +--------+---------+ + + + | Date | Type | Department | Care Team | Description | +--------+---------+ + + + | 12/01/ | Office | [facility] | Alexander Darnell, | PAT (paroxysmal | | 2020 | Visit | CARDIOLOGY [place] | [address] | atrial tachycardia) | | | | [address] | [address] [place], | ([facility]) (Primary Dx); | | | | [address] | [place] [address] | PSVT (paroxysmal | | | | [place], [place] | [phone] | supraventricular | | | | [address] | | tachycardia) ([facility]); | | | | [phone] | | Mobitz type 1 second | [...] see 1 of our physicians in the [place] office an d has transferred care. I [...] 119 bp m). -- Echo (04/11/19 - [facility]): EF 65-70%, grade 1 diastolic dysfunction, [...] file Gets together: Not on file Attends methodist service: Not on file Active member of [...] for this visit: PAT (paroxysmal atrial tachycardia) ([facility]) - Mobile Cardiac Telemetry; Future PSVT (paroxysmal supraventricular tachycardia) ([facility]) - Mobile Cardiac Telemetry; Future Mobitz type [...] | | | | | | [place] [address] | | | | | | [phone] | | | | | | | | +--------+ + + + + | 03/18/ | Office | Cardiology | Ana Cross | | | 2020 | Visit | | [address] | | | | | | [address] | | | | | | [place] [address] | | | | | | [phone] | | | | | | | [...] 12/09/2019, Expires: | | | | | ([facility]) PSVT | 12/01/2020 | | | | | (paroxysmal | | | | | | supraventricular | | | | | | tachycardia) ([facility]) | | | | | | 2nd [...]
--- OUTSIDE RECORDS SUMMARY | ~2019-12-09 | XMS | Encounter Summary ---
Demographics + + + | Address | [address] | | | [place] [address] | + + + | Home Phone | | + + + | Preferred Language | Unknown | + + + | Marital Status | | + + + | Jew Affiliation | Unknown | + + + [...] Team Providers + +------+ + | Care Landscape Contractor Name | Role | Phone | + [...] 2020 | | [facility] | L, Gas Turbine Powerplant Mechanic Helper | | | | | CARE [address] | | | | | | [place] | | | | | | [address] | | | | | | [phone] | | | +--------+ + + + [...] Miscellaneous Notes Telephone Encounter - Mariah Ogden, Gas Turbine Powerplant Mechanic Helper - 10/27/2019 10:54 AM PDTFormat ting of this note might be different from the original. Reason For Call: RESULTS Called patient and left message to call us back. When patient calls back please notify of the following results: COVID-19 testing as of: 10:54 AM PDT 10/27/2019 Lab Results Component Value Date/Time COVID19 Not Detected 10/25/2019 07:31 AM [facility] umented in this encounter Plan of Treatment [...] | | | | | | [place] [address] | | | | | | [phone] | | | | | | | | +--------+ + + + + | 03/18/ | Office | Cardiology | Ana Cross | | | 2020 | Visit | | [address] | | | | | | [address] | | | | | | [place] [address] | | | | | | [phone] | | | | | | | | +--------+ + + + + documented as of this encounter Visit Diagnoses Not on filedocumented in this encounter"
--- OUTSIDE RECORDS SUMMARY | ~2019-12-09 | XMS | Encounter Summary ---
Demographics + + + | Address | [address] | | | [place] [address] | + + + | Home Phone [...] Team Providers + +------+ + | Care Club Attendant Name | Role | Phone | [...] + + | 09/11/ | Documentati | [facility] | Hermelinda Mcgovern, | Other (urgent | | 2020 | on | CARDIOLOGY [place] | Technologist | report) | | | | [address] | | | | | | [place], [place] | | | | | | [address] | | | | | | [phone] | | | +--------+ + + + [...] | | | | | | [place] [address] | | | | | | [phone] | | | | | | | | +--------+ + + + + | 03/18/ | Office | Cardiology | Ana Cross | | | 2020 | Visit | | [address] | | | | | | [address] | | | | | | [place] [address] | | | | | | [phone] | | | | | | | | +--------+ + + + + documented as of this encounter Visit Diagnoses Not on filedocumented in this encounter"
--- OUTSIDE RECORDS SUMMARY | ~2019-12-09 | XMS | Encounter Summary ---
Demographics + + + | Address | [address] | | | [place] [address] | + + + | Home Phone | | + + + | Preferred Language | Unknown | + + + | Marital Status | | + + + | Moravian Affiliation | Unknown | + + + [...] Team Providers + +------+ + | Care Proposal Coordinator Name | Role | Phone | [...] + + | 09/15/ | Documentati | [facility] | Raghu Montilla, | Other ([employer] | | 2019 | on | CARDIOLOGY [place] | Technologist | Urgent Report) | | | | [address] | | | | | | [place] | | | | | | [address] | | | | | | [phone] | | | +--------+ + + + [...] 12/10/ | Procedure | Cardiology | Alexander Darnlel, | | 2019 | visit | | MD [address] | | | | | | [place] | | | | | | [place] [address] | | | | | | [phone] | | | | | | | | +--------+ + + + + | 03/18/ | Office | Cardiology | Ana Cross | | | 2020 | Visit | | [address] | | | | | | [address] | | | | | | [place] [address] | | | | | | [phone] | | | | | | | | +--------+ + + + + documented as of this encounter Visit Diagnoses Not on filedocumented in this encounter"
--- OUTSIDE RECORDS SUMMARY | ~2019-12-09 | XMS | Encounter Summary ---
Demographics + + + | Address | [address] | | | [place] [address] | + + + | Home Phone | | + + + | Preferred Language | Unknown | + + + | Marital Status | | + + + | Taoist Affiliation | Unknown | + + + | Race | White | + + + | Ethnic Group | Not or | + + + Author + + + | Author | [facility] | | | and [place] | + + + | Organization | [facility] | | [...] Team Providers + +------+ + | Care Regional Property Manager Name | Role | Phone | [...] + + | 11/09/ | Virtual | [facility] | Ana Cross | First degree AV | | 2019 | Office | CARDIOLOGY [place] | [address] | block (Primary Dx); | | | Visit | [address] | [address] | 2nd degree AV block; | | | | [place] | [place] [address] | Tachycardia; | | | | [address] | [phone] | Essential | | | | [phone] | | hypertension; Mild | | | [...] on December 01 as scheduled Call the [facility], and let me know if they are not taking new patients, and I will refer you to [facility] documented in this encounter Progress [...] minutes of medical discussion via telephone visit ([id number]) Patient has not been seen in office [...] labs Her daughter Briseida who is primary grounds/maintenance specialist, was also involved in our phone visit [...] weak. I r eceived notification from her project manager senior, Dr. Steve about her possible atrial fib, an d for cardiac risk evaluation for cataract surgery on August 20. I saw her on August 27 to follow-up on reports from her project manager senior that she may have atr ial fibrillation [...] today. They have not heard from the [facility] sleep disorders clinic, and also did not [...] use. Exer cises seldom . Lives in [place] Outpatient Medications Prior to Visit Medication Sig [...] mmHg v alve not well visualized, trace CT EKG/EVENT MONITOR Event monitor: 2-week: September 03-September [...] and anterior le ads.Rate 90 bpm , CT 254, QRS 74 ms, QTC 443, tracing personally reviewed by me EK07/07/2019:( Cardizem 180 mg) Sinus tachycardia with first-degree AV block, ongoing lo w voltage QRS leads III, aVL, aVF and anterolateral leads. Rate 103 bpm, CT 236 ms, QRS 75 ms, QTC 403 ms, tracing personally reviewed by me, and compared to EKG performed in February, rate is less well-controlled EK08/28/2019 (Cardizem 180/digoxin 125 )sinus rhythm with prolonged first-degree AV block. Rate 76 bpm, CT 346 ms, QRS 68 ms, QTC 391 ms, tracing personally reviewed by me and denise red to EKG performed in June, first-degree AV block has increased, and rate better controlled EK10/01/2019: ( Cardizem 180 mg) Sinus tachycardia with first-degree AV block low voltage QRS, nonspecific ST -T abnormality.. Rate 106 bpm, CT 278 ms, QRS 52 ms, QTC 366 ms jazmin gaviria personally reviewed by me, and compared to EKG performed in August, first-degree AV block olvera s decreased, and rate is less well controlled LABS Labs: 12/10/2018:( [facility]) CBC: WBC 5.7, RBC 4.9, hemoglobin 16.3, hematocrit 47.4, platel ets 202. CMP: Glucose 121, BUN 10, creatinine 0.55, GFR 106, sodium 137, potassium 3.2, alb umin 3.5 bilirubin 0.9, AST 24, ALT 15, alk phos 99, troponin T i <0.010, BNP 124 Labs: 12/25/2018: ( [facility]):CBC: WBC 7.6, RBC 4.9, hemoglobin 15.9, [...] GFR 85. Digoxin 0.88 Labs: 09/17/2019: ( [facility]) : 12:38: CBC: WBC 10.2, RBC [...] of pacemaker. I had referred her [facility] for evaluation of sleep apnea, w hich can contribute to bradycardia, and atrial tachycardias, have not heard back, and I have requested that they call the sleep lab today, and if they are not accepting any new patient s, to let me know, and I will refer her to the [facility] instead. She will see Dr. Darnell next on December 01 to establish with him as her primary cardiology, as she does not wish to travel to [place] to see Dr. Auguste on a regular basis. She will then have complete cardiology team of a manager of applications development, as well as a cardiology odilon oliveira [...] for continuity of care purp ron MEEKS [facility] Cardiology 11/10/2019 docume nted in this [...] | | | | | | [place] [address] | | | | | | [phone] | | | | | | | | +--------+ + + + + | 03/18/ | Office | Cardiology | Ana Cross | | | 2020 | Visit | | [address] | | | | | | [address] | | | | | | [place] [address] | | | | | | [phone] | | | | | | | [...]
--- OUTSIDE RECORDS SUMMARY | ~2019-12-09 | XMS | Encounter Summary ---
Demographics + + + | Address | [address] | | | [place] [address] | + + + | Home Phone [...] Team Providers + +------+ + | Care Tooling Engineer Name | Role | Phone | [...] | | Required | | First | YOUTH DEVELOPMENT PROFESSIONAL [address] | [address] | | | | | degree AV | [address] | [facility] | | | | | block Risk | [address] | [place] [address] | | | | | factors for | [place], [place] | [address] | | | | | obstructive | [address] | [place], [place] | | | | | sleep apnea | Phone: | [address] Phone: | | | | | | [phone] | [phone] | | | | | Palpitations | Fax: | Fax: | | | | | | [phone] | [phone] | + + + + + + + Reason for Visit + + + | Reason | Comments | + + + | Follow-up | Hospital | + + + Encounter Details +--------+---------+ + + + | Date | Type | Department | Care Team | Description | +--------+---------+ + + + | 09/30/ | Office | [facility] | Ana Cross | Tachycardia (Primary | | 2020 | Visit | CARDIOLOGY [place] | [address] | Dx); First degree | | | | [address] | [address] | AV block; Essential | | | | [address] [place], [place] | [place] [address] | hypertension; Mild | | | | [address] | [phone] | tricuspid | | | | [phone] | | regurgitation by | | | [...] have referred you to Dr. Nogueira at [facility] , call [phone] for an appoi ntment next week Get non fasting labs done in 2 weeks at [facility] , and I will see if need to decrease pota ssium dose Have Briseida Call me 2 days after get labs done , so I can make sure I get results from Int erpath See Dr. Darnell as scheduled in December 01 in [place] No changes to medications today, and continue [...] emergency room admission on September 16 at [facility] She is accompanied today by her other daughter , as Briseida who is primary consultant rn not a vailable, and she contributed to [...] weak. I r eceived notification from her mechatronics technician, Dr. Steve about her possible atrial fib, an d for cardiac risk evaluation for cataract surgery on August 20. I saw her last on August 27 to follow-up on reports from her mechatronics technician that she may have atrial fibrillation and [...] planning on having her cataract surgery at [place], and went through pre-op scree selina on [...] use. Exer cises seldom . Lives in [place] Outpatient Medications Prior to Visit Medication Sig [...] mmHg v alve not well visualized, trace [place] EKG/EVENT MONITOR Event monitor: 2-week: September 03-September [...] and anterior le ads.Rate 90 bpm , [place] 254, QRS 74 ms, QTC 443, tracing personally reviewed by me EK07/07/2019:( Cardizem 180 mg) Sinus tachycardia with first-degree AV block, ongoing lo w voltage QRS leads III, aVL, aVF and anterolateral leads. Rate 103 bpm, [place] 236 ms, QRS 75 ms, QTC 403 ms, tracing personally reviewed by me, and compared to EKG performed in February, rate is less well-controlled EK08/28/2019 (Cardizem 180/digoxin 125 )sinus rhythm with prolonged first-degree AV block. Rate 76 bpm, OK 346 ms, QRS 68 ms, QTC 391 ms, tracing personally reviewed by me and denise red to EKG performed in June, first-degree AV block has increased, and rate better controlled EK10/01/2019: ( Cardizem 180 mg) Sinus tachycardia with first-degree AV block low voltage QRS, nonspecific ST -T abnormality.. Rate 106 bpm, [place] 278 ms, QRS 52 ms, QTC 366 [...] she does not wish to travel to [place] to see Dr. Auguste on a regular basis. I have a tentative telephone visit set up with her on Nov 09, which I can cancel if not odilon cruz. She will then have complete cardiology team of a carroting machine offbearer, as well as a cardiology odilon oliveira [...] purp ron MEEKS [facility] Cardiology 10/01/2019 CAdojon watson in this [...] | | | | | | [place] [address] | | | | | | [phone] | | | | | | | | +--------+ + + + + | 03/18/ | Office | Cardiology | Ana Cross | | | 2020 | Visit | | [address] | | | | | | [address] | | | | | | [place] [address] | | | | | | [phone] | | | | | | | [...] JARAMILLO | | | | | | ([id number]) on 10/01/2019 | | | | | | 5:02:23 PMAlso confirmed | | | | | | by MAURO HUGHES MD | | | | | | ([id number]) on 10/02/2019 | | | | | [...]
--- OUTSIDE RECORDS SUMMARY | ~2019-12-09 | XMS | Clinical Summary ---
Demographics + + + | Address | [address] | | | [place] [address] | + + + | Home Phone | | + + + | Preferred Language | Unknown | + + + | Marital Status | | + + + | Mandaeism Affiliation | Unknown | + + + | Race | White | + + + | Ethnic Group | Not or | + + + Author + + + | Author | [facility] | | | and [place] | + + + | Organization | [facility] | | [...] Team Providers + +------+ + | Care Trade Mark Examiner Name | Role | Phone | + [...] | | valve not well visualized, trace NH | + + + + + | [...] tachycardia) | | | | | | ([facility]) (Primary Dx); | | | | | | PSVT (paroxysmal | | | | | | supraventricular | | | | | | tachycardia) ([facility]); | | | | | | Mobitz [...] | | 2019 | | | Stacia Abalone Fisherman | | +--------+ + + + + [...] + | 10/01/ | Surgery | | Jsaon Steve, | LEFT EXTRACTION | | 2019 | [...] [place], | | | | | | [place] [address] | | | | | | [phone] | | | | | | | | +--------+ + + + + | 03/18/ | Office | Cardiology | [facility] | | | 2020 | Visit | | [address] | | | | | | [address] | | | | | | [place] [address] | | | | | | [phone] | | | | | | | [...] | | SAHNI | | 03/21/ | [id number] | | 22.0 - [id number]: | c | | MEDICAL | | 2020 | 219 | | Qty: 1 on 10/02/2019 by | | | OPTICS - | | | /[id number] | | Jason Steve MD at [facility] | | | [place] | | | [phone] | | [facility] | | | | | | / | | CENTER | | | | | | | + +--------+------+ +--------+--------+--------+ | Lens Tecnis Preloaded Pcb | Generi | | SAHNI | | 03/21/ | [id number] | | 22.0 - [id number]: | c | | MEDICAL | | 2022 | 0220 | | Qty: 1 on 10/30/2019 by | | | OPTICS - | | | /[id number] | | Jason Steve MD at [facility] | | | [place] | | | [id number] | | [facility] | | | | | | / [...] + | Performed at: 01 - [facility] [address], | REFERENCE LAB | | [place], [place] [id number] 6Th Grade Teacher: Geovany Yost MD, Phone: | [facility] | | [phone] | | + + + + + + + + | Performing | Address | City/State/Zipcode | Phone Number | | Organization | | | | + + + + + | REFERENCE LAB | [address] | [place], [place] | [phone] | | [facility] | [place] | [address] | | + + + + + [...] JARAMILLO | | | | | | ([id number]) on 10/01/2019 | | | | | | 5:02:23 PMAlso confirmed | | | | | | by MAURO HUGHES MD | | | | | | ([id number]) on 10/02/2019 | | | | | [...] +--------+ +---------+--------+ | MEDICARE | MEDICA | [id number] | 05/21/19 | [phone] | | Medica | | | RE | | 01-Pre | 5 | | re | | | PART A | | sent | | | | | | AND B | | | | | | + +--------+ +--------+ +---------+--------+ | MEDICARE | MEDICA | [id number] | 05/21/19 | [phone] | | Medica | | | RE | | 01-Pre | 5 | | re | | | PART A | | sent | | | | | | AND B | | | | | | + +--------+ +--------+ +---------+--------+ | CIGNA | CIGNA | [id number] | 09/26/19 | [phone] | | Indemn | | | MDCR | | 20-Pre | 1 | | ity | | | SUPPLE | | sent | | | | | | MENT | | | | | | | | SOLUTI | | | | | | | | ONS | | | | | | + +--------+ +--------+ +---------+--------+ | CIGNA | CIGNA | [id number] | | [phone] | | Indemn | [...] Jennifer | angus/Pito | | 1936 | [phone] | [place] | | | [place] | | | [address] (Home) | [phone] | + +--------+ +--------+ + + | Kae Jeter | Person | Self | [birth year] | [address] | | Jennifer | al/Fam | | 1936 | [phone] | [place] | | | [place] | | | [address] ([place]) | [phone] | + +--------+ +--------+ + + Advance Directives + + + + + | Type | Date Recorded | Patient | Explanation | | | | Liquefaction Plant Operator | | + + + + + | Power of | | | | | Trade Mark Examiner | | | | + + + [...]
--- OUTSIDE RECORDS SUMMARY | ~2019-12-09 | XMS | Encounter Summary ---
Demographics + + + | Address | [address] | | | [place] [address] | + + + | Home Phone [...] Team Providers + +------+ + | Care Acid Treater Name | Role | Phone | + [...] | | | [address] | [place] [address] | | | | | [place] | [phone] | | | | | [address] | | | | | | [phone] | | | +--------+ + + + [...] Miscellaneous Notes Telephone Encounter - Ana Cross, PEDIATRIC CARE COORDINATOR - 08/21/2019 12:24 PM PDTReceived notificat ion from her book sewing machine operator Dr. Steve on August 21, 2019 that she may be in atrial fib, and needs cardiac risk evaluation for cardiac surgery. I am seeing her on August 27, and we will repeat her EKG, and possibly order an event monitor if indicated. [facility] umcaryn in this encounter Plan of [...] | | | | | | [place] [address] | | | | | | [phone] | | | | | | | | +--------+ + + + + | 03/18/ | Office | Cardiology | Ana Cross | | | 2020 | Visit | | [address] | | | | | | [address] | | | | | | [place] [address] | | | | | | [phone] | | | | | | | | +--------+ + + + + documented as of this encounter Visit Diagnoses Not on filedocumented in this encounter"
[~2019-12-09 17:48] MED LIST changes: +K-TAB ER20 MEQ PO; +ONDANSETRON ODT8 MG PO
[2019-12-09] MEDS ORDERED: CARTIA XT120 MG PO (18:39)
[2019-12-10] MEDS ORDERED: ADVAIR HFA 230-12 GM PO (08:50)
[2019-12-11] MEDS ORDERED: POTASSIUM CHLO10 ME1 PO (09:22)
== END 2019-12-11 15:03 | disposition home or self-care (01) ==
LOC: ED 17:48 → MS 17:50
PROVIDERS: ADMIT Specialist; ATTEND Specialist
DX: M79.662 Pain in left lower leg (principal); R00.0 Tachycardia, unspecified; E87.6 Hypokalemia; R11.2 Nausea with vomiting, unspecified; B02.29 Other postherpetic nervous system involvement; I10 Essential (primary) hypertension; I25.10 Atherosclerotic heart disease of native coronary artery without angina pectoris; Z20.828 Contact with and (suspected) exposure to other viral communicable diseases; Z91.030 Bee allergy status; Z88.8 Allergy status to other drugs, medicaments and biological substances; Z79.899 Other long term (current) drug therapy; W19.XXXA Unspecified fall, initial encounter
CPT/HCPCS: 36415; 73110; 73560; 73610; 73630; 76705; 80053; 83735; 85025; 97110; 97116; 97162; 97530; 99284-25; C9803; G0378; U0003

== ENCOUNTER 2020-06-05 10:20 | Inpatient (IN) | payer MEDICARE, OTHER ==
[~2020-06-05] VITALS: Ht 154.9 cm; Wt 51.0 kg
[~2020-06-05 10:20] MED LIST changes: +ADVAIR HFA 230-12 GM PO; +CARTIA XT120 MG PO
--- NOTE | 2020-06-05 14:29 | EKG ---
[facility] [address] [place] [address] Signed Sinus tachycardia with 1st degree AV block Low voltage QRS Possible Inferior infarct (cited on or before 25-DEC-2018) Abnormal ECG When compared with ECG of 17-SEP-2019 12:33, premature atrial complexes are no longer present Questionable change in initial forces of Inferior leads ST no longer depressed in Lateral leads Confirmed by COLLIN ROPER MD ([id number]) on 06/05/2020 2:29:26 PM Electronically Signed By: COLLIN ROPER MD 06/05/20 1429 PATIENT NAME: MICHELLE LOMBARDI Electrocardiogram DATE OF : 35 PHYSICIAN: COLLIN ROPER MD REPORT #: [id number] REPORT IS CONFIDENTIAL AND NOT TO BE RELEASED WITHOUT AUTHORIZATION
--- NOTE | 2020-06-05 16:00 | NUR ---
PATIENT BROUGHT TO THE FLOOR AT THIS TIME BY THIS RN FROM ED pt alert and oriented x4. pt NIHSS score of 2, for leg weakness. pt having some nausea at this time, given PRN zofran. pt and her daughters report that this is normal for her, and that rapid movement (like being wheeled down from RD) makes her nauseous. pt able to pass swallow bedside eval at this time and does not appear to be an aspiration risk. pt assessment complete, pts VSS except HR which is 115, pts daughters state that her HR is normally around 105-115. pt on tele #5 at this time. pt getting IVF as ordered. pt dinner ordered and positioned to comfort. pt in bed, table and call light within reach. daughters at bedside.
--- NOTE | 2020-06-05 17:00 | NUR ---
ROUNDING pt has dinner tray at this time and is able to eat it without difficulty. pt sitting up in bed, table and call light within reach.
--- NOTE | 2020-06-05 18:00 | NUR ---
ROUNDING pt reports 1/10 tolerable pain at this time, and denies nausea. pt still working on her dinner at this time, daughter at bedside. table and call light within reach.
--- NOTE | 2020-06-05 19:00 | NUR ---
SHIFT REPORT RECEIVED FROM SHANNONTXDON MEMBRENO AT BEDSIDE. pt AWAKE AND RESTING IN BED, TELE#[address], HR TACHY 105-110. WILL MONITOR. NO NEEDS VERBALIZED, DAUGHTER IN ROOM. CALL LIGHT IN REACH. BOARD UPDATED.
--- NOTE | 2020-06-05 20:50 | NUR ---
ASSESSMENT COMPLETE, SCHEDULED MEDS GIVEN, SEE EMAR. pt A/OX4, PUPILS ROUND AND REACTIVE TO LIGHT. BILATERAL STRENGTH NOTED TO UPPER EXTREMITIES AND LOWER EXTREMITIES. SPEECH CLEAR AND EASILY UNDERSTOOD. pt ATTEMPTED TO GET OOB AND ON TO BSC PER STEPH ARGUELLO. HR NOTED IN 130'S, BEDPAN USED INSTEAD. DR ROPER AWARE. IV FLUIDS INFUSING, SITE WNL. NO FURTHER NEEDS, CALL LIGHT IN REACH. NEW ALLEVYN TO SKIN TEAR TO OUTER RIGHT KNEE. DRESSING DATED. CALL LIGHT IN REACH.
--- NOTE | 2020-06-06 01:02 | NUR ---
pt RESTING QUIETLY IN BED WITH EYES CLOSED, RR EVEN AND UNLABORED. NO DISTRESS NOTED, TELE#[address], HR 105, SINUS TACH. CALL LIGHT IN REACH.
--- NOTE | 2020-06-06 01:50 | NUR ---
IN TO WITH RN TO GET VITALS, PT PUT ON BEDPAN, WILL CALL WHEN READY
--- NOTE | 2020-06-06 02:01 | NUR ---
ASSESSMENT COMPLETE, SCHEDULED CARDIAC MED GIVEN, SEE EMAR. VSS, TELE#[address]. HR 100-107. pt SLIGHTLY WEAKER ON RLE COMPARED TO LLE, LIKELY D/T FALL pt REPORTS SOME DISCOMFORT TO RIGHT HIP. NO NEED FOR PAIN MEDICATION VERBALIZED AT THIS TIME, CALL LIGHT IN REACH. NEW BAG IV FLUIDS HUNG AND INFUSING PER MD ORDERS, SITE WNL.
--- NOTE | 2020-06-06 05:57 | NUR ---
VSS AND I&O'S COMPLETE. NEURO ASSESSMENT UNCHANGED. CALL LIGHT IN REACH, NO ADDITIOANL NEEDS VERBALIZED.
--- NOTE | 2020-06-06 07:30 | NUR ---
SHIFT REPORT FROM LEONELA BUSTOS INCLUDED: pt neuro status seems unchanged from prior shift, pt has some soreness that is slightly more on her right side, showing slightly weaker right leg than left. pt alert and oriented through night assessments, and VSS. pt still on tele #5 and currently HR is 90 sinus. pt had an unevenful evening. pt currently in bed, resting with eyes closed, breathing even and unlabored, table and call light within reach.
--- NOTE | 2020-06-06 08:50 | NUR ---
MED PASS + ASSESSMENT pt assessment complete, NIHSS 2, for leg weakness. pt able to swallow water and take all morning meds without difficulty. attempt to have pt stand with FWW and 2PA and pivot to chair failed. pt unable to stand for more than 8seconds with FWW and 2PA. pt reports that she is "sore all over". pts daughter Cindi in room with her and reports that the pt can stand and pivot to wheelchair or chair at baseline, and is much weaker than normal. pt back to bed and positioned to comfort. pt sitting up, fowlers position, in bed, having breakfast at this time. pt denies nausea and reports 1/10 tolerable pain when resting. pt in bed, table and call light within reach, daughter at bedside.
--- NOTE | 2020-06-06 10:00 | NUR ---
ROUNDING pt sitting up in bed, visiting with her daughter at this time. pt reports 1/10 pain and no nausea at this time. pt denies needs. table and call light within reach.
--- NOTE | 2020-06-06 11:24 | NUR ---
ROUNDING pt up to commode with STEPH and Nisha BUSTOS at this time. pt able to lift herself off the commode with her own strength and slight 1PA. pt able to shuffle to the bed with 2PA with difficulty. pt back to bed, positioned to comfort at this time. pts HR got up to the 140s at this time. pts HR returns to 115-120 back at rest. pt denies further needs at this time. table and call light within reach. daughter at bedside.
--- NOTE | 2020-06-06 12:30 | NUR ---
ROUNDING pt sitting up in bed at this time, having lunch. pt denies pain and nausea at this time. pts daughter at bedside. pt sitting up in bed, table and call light within reach.
--- NOTE | 2020-06-06 13:30 | NUR ---
ROUNDING pt working with physical therapy at this time. call light in reach.
--- NOTE | 2020-06-06 14:30 | NUR ---
ROUNDING pt up to chair at this time. pt resting in chair, reclined with eyes closed, table and call light within reach. breathing even and unlabored.
[2020-06-06] MEDS ORDERED: FLONASE SENSIM5.9 ML NAS (14:46)
--- NOTE | 2020-06-06 15:30 | NUR ---
MED PASS + ASSESSMENT pt able to take meds slowly, but without difficulty. pt repositioned in chair at this time. pt reports 1/10 pain and no nausea at this time. pt assessment complete, VSS, lungs clear. pt given fresh water at this time. pt in chair, table and water within reach. pt watching tv at this time.
--- NOTE | 2020-06-06 15:35 | NUR ---
PATINT AWAKE IN CHAIR. VDAUGHTER IN ROOM. VITALS AND I&OS CHARTED. NO OTHER NEEDS AT THIS TIME
--- NOTE | 2020-06-06 16:30 | NUR ---
ROUNDING pt resting in chair, eyes closed, breathing even and unlabored, table and call light within reach, daughter at chairside.
--- NOTE | 2020-06-06 17:30 | NUR ---
ROUNDING pt sitting up in chiar, having dinner, denies pain and nausea at this time. table and call light within reach.
--- NOTE | 2020-06-06 19:00 | NUR ---
SHIFT REPORT RECEIVED FROM RADHA MEMBRENO AT BEDSIDE. CNAS IN ROOM HELPING pt TO BSC, HR ELEVATED TO 150'S. NOW RESTING ON BSC, HR IN 120'S. WILL MONITOR AND RECHECK ONCE pt IS BACK IN BED.
--- NOTE | 2020-06-06 19:24 | NUR ---
VITALS CHARTED.DAUGHTER IN ROOM. PATIENT REQUESTS HELP TO BSC. 2PA. UNABLE TO URINATE, WILL SIT ON BSC FOR A BIT, DAUGHTER AT SIDE, WILL CALL WHEN READY. PAINFUL WHEN MOVED.
--- NOTE | 2020-06-06 19:25 | NUR ---
WITH HELP FROM RODNEY BUSTOS, pt BACK TO BED. NEW ATTENDS IN PLACE. IV FLUIDS RESUMED AT THIS TIME, NEW BAG IV FLUIDS HUNG AND INFUSING PER MD ORDERS, SITE WNL. CALL LIGHT IN REACH. FAMILY IN ROOM.
--- NOTE | 2020-06-06 19:44 | NUR ---
pt RESTING IN BED, HR 116-120S ON TELE AT REST. pt'S FAMILY IN ROOM. VSS. pt IS RESTING IN BED EATING JELLO, ALERT. pt STATES "I CAN'T EVEN FEEL THAT MY HEART RATE IS GETTING THAT HIGH WHEN I'M UP. MY LEGS HAVE BEEN HURTING WHEN I MOVE". CALL LIGHT IN REACH.
--- NOTE | 2020-06-06 19:45 | NUR ---
CALL MADE TO DR ROPER. pt UP TO BSC AT SHIFT CHANGE, HR UP TO 159 PER CCU. RETURNED TO 105-110 ONCE IN BED FOR A FEW MINUTES. NOW SUSTAINING IN 115-120'S. BP WNL, REMAINING VSS, BP 134/96. pt DENIES SYMPTOMS. NO NEW ORDERS, PER DR ROPER OKAY FOR HR TO SUSTAIN UP TO 130'S LONG REMAINING VSS AND pt IS NONSYMPTOMATIC. WILL CONTINUE TO MONITOR, STAMP REDEMPTION CLERK BAILEY AND CCU STAFF AWARE.
--- NOTE | 2020-06-06 21:30 | NUR ---
ASSESSMENT COMPLETE, SCHEDULED MEDS GIVEN. NEURO WNL, RATES PAIN 1-2/10 AT REST. DENIES NEED FOR PAIN MEDICATION. IV FLUIDS INFUSING PER MD ORDERS, SITE WNL. TELE#[address], HR 80'S-90'S. pt DENIES CHEST PAIN AND SOB. DUE TO VOID, BUT DENIES NEED TO AT THIS TIME. WILL MONITOR. CALL LIGHT IN REACH.
--- NOTE | 2020-06-06 23:45 | NUR ---
pt ON BEDPAN TO VOID, 300MLS OUTPUT NOTED. REPOSITIONE DIN BED WITH HELP FROM STEPH KENNEDY. PILLOW PLACED UNDER RIGHT SHOULDER AND HIP. NO FURTHER NEEDS, CALL LIGHT IN REACH.
--- NOTE | 2020-06-06 23:46 | NUR ---
2 PA. PATIENT USED BED NOEL. PATIENT VOIDED 300ML.
--- NOTE | 2020-06-07 03:10 | NUR ---
pt RESTING IN BED WITH EYES CLOSED, RR EVEN AND UNLABORED, TELE#[address], hr 88, sinus rhythm. call light in reach.
--- NOTE | 2020-06-07 05:20 | NUR ---
VS AND I&O'S COMPLETE. pt ON BEDPAN, VOIDED 250MLS, BEDPAN REMOVED. pt REPOSITIONED IN BED, NO FURTHER NEEDS. IV SITE REMAINS WNL, CALL LIGHT IN REACH.
--- NOTE | 2020-06-07 07:20 | NUR ---
BEDSIDE HANDOFF REPORT RECEIVED FROM RECRUITER ACCOUNT MANAGER RN. PT RESTING IN BED, DAUGHTER AT BEDSIDE. PT DENIES NEEDS AT THIS TIME.
--- NOTE | 2020-06-07 07:55 | NUR ---
PT RESTING IN BED, EATING BREAKFAST. PT RATING PAIN 4/10 TO RIGHT NECK, SHOULDER AND LEG, WORSE WITH ACTIVITY, GIVEN TYLENOL. PT ON ROOM AIR, LUNG SOUNDS CLEAR. BOWEL TONES ACTIVE, DENIES NAUSEA, TOLERATING BREAKFAST. PT WITHOUTE EDMEA, CMS INTACT. NEURO ASSESSMENT WNL. IV FLUIDS INFUSING NS AT 75ML/HR. DISCUSSED PLAN OF CARE FOR THE DAY. PT DENIES OTHER NEEDS AT THIS TIME.
--- NOTE | 2020-06-07 09:29 | NUR ---
PATIENT SITTING UP IN BED, DAUGHTER IN ROOM. VITALS AND I&O'S CHARTED. AM CARE DONE. FRESH WATER GIVEN. CALL LIGHT IN REACH. NO FURTHER NEEDS AT THIS TIME.
--- NOTE | 2020-06-07 09:55 | NUR ---
PT RESTING IN BED. PT STATES PAIN SLIGHTLY IMPROVED AFTER TYLENOL. P.T. AT BEDSIDE.
--- NOTE | 2020-06-07 10:30 | NUR ---
PT WORKING WITH Clem, ASSISTED TO BSC, HAD SMALL BM AND VOIDED, PERICARE PERFORMED. PT ASSISTED TO CHAIR WITH Clem AND FWW. DAUGHTER AT BEDSIDE.
--- NOTE | 2020-06-07 12:15 | NUR ---
PT SITTING IN CHAIR, REPOSITIONED TO EAT LUNCH. PT STATES PAIN CONTINUES TO BE AT AN ACCEPTABLE LEVEL. PT DENIES OTHER NEEDS AT THIS TIME.
--- NOTE | 2020-06-07 15:00 | NUR ---
Spoke with pt and she resides at home, her daughter Cindi stays at night and goes to work at 5:30. Daughter Ulices arrives shortly and gives her breakfast and returns and makes lunch. Cindi return home at 2 pm and stays with pt. Pt has minimal time alone and states she sleeps in her chair while daughters are gone. She has been using a wc for the last 8 weeks and not walking. Pt plans on returning home when cleared medically. I will call her daughter, Briseida, and confirm all is well.
--- NOTE | 2020-06-07 15:17 | NUR ---
PT ASSISTED FROM CHAIR TO BSC, VOIDED AND HAD MEDIUM SOFT STOOL. PT THEN ASSISTED TO BED. PT ON ROOM AIR, LUNG SOUNDS CLEAR, DENIES SOB. PT STATES PAIN IS TOLERABLE AT THIS TIME, DECLINING PAIN MEDICATION. NIH STROKE ASSESSMENT COMPLETED, SCORE OF 4 FOR RIGHT LEG DEFICITS. PT WITH REDNESS, EXCORIATED SKIN UNDER LEFT BREAST, NIO ORDER PLACED FROM MICONAZOLE POWDER. PT DENIES OTHER NEEDS AT THIS TIME. HANDOFF GIVEN TO AKASH BROWN.
--- NOTE | 2020-06-07 15:25 | NUR ---
REPORT RECEIVED PT CARE ASSUMED. PT STATES SHE IS "JUST FINE" AND "HAS EVEYTHING SHE NEEDS" SITTING UP IN BED WATCHING TV. CALL LIGHT AND NEEDED ITEMS IN REACH
--- NOTE | 2020-06-07 16:25 | NUR ---
PT RESTING EYES CLOSED FAMILY PRESENT IN ROOM WATCHING TV
--- NOTE | 2020-06-07 16:50 | NUR ---
Called and spoke with Briseida. She states concern for mom to return home as she is becoming weaker and has stopped transfering or taking steps. Pt and daughter do not want her placed. We did discuss she may need to go to rehab if she cannot stay alone. Also discussed [facility], but per Briseida she would run out of income soon. She states concern why mom became dizzy and updated Dr. michaud is researching this and has received old records. Will discuss with Dr. michaud in am if pt can safely return home or if she will need placement for rehab.
--- NOTE | 2020-06-07 18:42 | NUR ---
PATIENT IN BED, DAUGHTER AT BESIDE. VITALS AND I&O'S CHARTED. PATIENT REFUSED ORAL CARE THIS MORNING AND AGAIN THIS AFTERNOON. CALL LIGHT IN REACH. NO FURTHER NEEDS AT THIS TIME.
--- NOTE | 2020-06-07 19:12 | NUR ---
REPORT RECEIVED FROM DAY SHIFT RN. PT LYING IN BED BED ALERT AND ORIENTED. DENIES NEEDS AT THIS TIME. WHITE BOARD UPDATED. CALL LIGHT IN REACH.
--- NOTE | 2020-06-07 20:30 | NUR ---
THIS SUPERVISOR CUSTOMER SERVICES AND PRIMARY RN SHWETHA HELPED PATIENT GET UP TO USE THE BEDSIDE COMMODE 2 PA USING WALKER. PATIENT IS BACK IN BED. ASSISTED RN CLEAN UNDERBREAST AREA, DRIED AND APPLIED POWDER AND PLACED PILLOWCASE. CALL LIGHT WITHIN REACH.
--- NOTE | 2020-06-07 21:09 | NUR ---
EVENING ASSESSMENT COMPLETE. SCHEDULED MEDS ADMINISTERED PER EMAR. PRN ADMINISTERED FOR NECK PAIN AND GENERALIZED DISCOMFORT. UP TO BSC WITH FWW AND 2PA TO VOID AND HAVE SMALL BM. LILIANE CARE DONE BY STAFF. CLEAN BRIEF PROVIDED. BACK TO BED, DENNIS WELL. LEFT BREAST EXCORIATED WITH OPEN AREAS. AREA CLEANED AND DRIED. SCHEDULED POWDER AND PILLOW CASE PLACED UNDER BREAST. TELE #[address] HR 80'S. NEURO WNL, PT DOES REPORT SHE STILL FEELS LIKE RIGHT LEG IS "WEAKER THAN NORMAL". DENIES QUESTIONS OR CONCERNS. CALL LIGHT IN REACH.
--- NOTE | 2020-06-07 23:22 | NUR ---
PT RESTING IN BED WITH EYES CLOSED. RESPIRATIONS EVEN AND UNLABORED. CALL LIGHT IN REACH.
--- NOTE | 2020-06-08 02:00 | NUR ---
CCU PHONED STATION; PT HAD HAD A 13 BEAT OF V-TACH. DR ROPER WAS ON THE FLOOR AND THIS RN INFORMED DR ROPER. NO NEW ORDERS AT THIS TIME.
--- NOTE | 2020-06-08 02:56 | NUR ---
PT RESTING IN BED WITH EYES CLOSED, NAD. RESPIRATIONS EVEN AND UNLABORED. TELE #[address] HR 80'S. CALL LIGHT IN REACH.
--- NOTE | 2020-06-08 03:49 | NUR ---
CALL LIGHT ANSWERED. PT UP TO BSC WITH FWW AND 2PA TO VOID AND HAVE SMALL BM. LILIANE CARE DONE BY STAFF. BACK TO BED, DENNIS WELL. CCU NOTIFIED RN THAT HR UP TO 130'S WITH ACTIVITY. PT DENIES CP OR SOB. BLANCHABLE REDNESS NOTED ON COCCYX AREA. PT REPOSITIONED WITH PILLOWS TO LEFT SIDE. HR 80'S AT THIS TIME. DENIES FURTHER NEEDS. CALL LIGHT IN HAND.
--- NOTE | 2020-06-08 07:33 | NUR ---
Patient resting in bed, respirations even and non labored. Patient has no distress at this time. Personal supplies and call light within reach.
--- NOTE | 2020-06-08 08:57 | NUR ---
Patient sitting up in chair eating breakfast, alert and oriented x3. Patient denies pain at this time. Patient eating without difficulty. Personal supplies and call light within reach.
--- NOTE | 2020-06-08 10:02 | NUR ---
PT WAS AWAKE, SITTING UP IN CHAIR, VERY PLEASANT DEMEANOR. SHE STATED SHE IS FREE TENRIISM, HER DAUGHTERS "TAKE VERY GOOD CARE OF HER" SHE WELCOMED A PRAYER AND EXPRESSED APPRECIATION FOR THE VISIT.
--- NOTE | 2020-06-08 11:04 | NUR ---
THIS RN INTO ROOM ON BEHALF OF CASE MANAGEMENT. PATIENT SITTING IN CHAIR. DISCUSSED WITH PATIENT THE REQUEST BY HER FAMILY TO TRANSFER TO [facility] FOR REHAB BEFORE DISCHARGING HOME. PATIENT AGREES TO PLACEMENT IF THAT IS THE WISHES OF HER DAUGHTERS. I ADVISED PATIENT CASE MANAGEMENT WILL FOLLOW UP WITH ERI, PATIENTS DAUGHTER FOR FURTHER PLANNING. PATIENT STATES SHE IS DOING WELL TODAY. NO FURTHER CASE MANAGEMENT NEEDS AT THIS TIME. CASE MANAGEMENT TO CONTACT ERI REGARDING PLACEMENT ARRANGEMENTS.
--- NOTE | 2020-06-08 13:00 | NUR ---
Spoke with daughter, Briseida. Per pt she is willing to go the SNF, [facility] for rehab. Briseida is in agreement and will speak with her sister and let me know for sure if this is what family would like. Per daughter pt has slowly been declining and walking less and now using the wc for 8 weeks.
--- NOTE | 2020-06-08 14:03 | NUR ---
Tylenol 650mg po admin for reports of 4/10 generalized pain.
--- NOTE | 2020-06-08 16:10 | NUR ---
Spoke with Jennifer from [facility] and she will have bed availability on or Sunday. FAce sheet, h&P, progress notes, med list, covid test faxed to [facility] at Jennifer's request. Daughter Ulices sent text with update [facility] accepted and I will confirm date tomorrow. Asked her to let me know if this is still what family would like.
--- NOTE | 2020-06-08 17:07 | NUR ---
LE 0945 THIS RN INTO ROOM TO SPEAK WITH PATIENT ON BEHALF OF CASE MANAGEMENT. PATIENT SEATED IN CHAIR WITH FEET UP. DISCUESS WITH PATIENT THE CONVERSATION REGARDING DISCHARGE TO [facility] FOR PT THAT CASE MANAGEMENT HAD WITH HER DAUGHTER ERI. ADVISED PATIENT THAT ERI FEELS PATIENT WOULD BENEFIT FROM REHAB AT [facility] PRIOR TO HER DISCHARGE HOME THE PATIENT HAS BEEN UNABLE TO AMBULATE FOR THE PAST 6-8 WEEKS. PATIENT AGREES TO DISCHARGE TO [facility] STATING "IF THAT'S WHAT THE GIRLS THINK I NEED, THAT'S FINE WITH ME." i ADVISED THE PATIENT CASE MANAGEMENT WILL MAKE ARRANGEMENTS WITH [facility] AND F/U WITH HER DAUGHTER ERI. PATIENT STATES SHE HAS HAD HER FIRST COVID VACCINE AND IS DUE FOR HER SECOND ON SUNDAY. WILL ATTEMPT TO ARRANGE ADMINISTRATION OF SECOND COVID VACCINE BEFORE DISCHARGE. NO FURTHER NEEDS FROM THE PATIENT AT THIS TIME. PATIENT ADVISED CASE MANAGEMENT STAFF WILL CHECK UP ON HER TOMORROW.
--- NOTE | 2020-06-08 19:16 | NUR ---
REPORT RECEIVED FROM DAY SHIFT RN. PT LYING IN BED ALERT AND ORIENTED FINISHING DINNER TRAY. FAMILY IN ROOM. DENIES NEEDS AT THIS TIME. WHITE BOARD UPDATED. CALL LIGHT IN REACH.
--- NOTE | 2020-06-08 19:19 | NUR ---
REPORT RECEIVED FROM DAY SHIFT RN. PT LYING IN BED ALERT. DENIES NEEDS AT THIS TIME. WHITE BOARD UPDATED. CALL LIGHT IN REACH. BED ALARM ON.
--- NOTE | 2020-06-08 21:30 | NUR ---
EVENING ASSESSMENT COMPLETE. SCHEDULED MEDS ADMINISTERED PER EMAR. PRN ADMINISTERED FOR NECK AND SHOULDER PAIN. PT UP TO BSC WITH 2PA AND FWW TO VOID AND HAVE SMALL BM. GAIT WEAK BUT PT ABLE TO TAKE A FEW STEPS TO BSC. STAFF ASSIST WITH LILIANE CARE. BACK TO BED, DENNIS WELL. TELE #5 SINUS TACH. HR LOW 100'S. PT DENIES CP OR SOB. EXCORIATED SKIN UNDER LEFT BREAST CLEANED, DRIED, AND DESENEX POWDER APPLIED. PT DENIES QUESTIONS OR CONCERNS. CALL LIGHT IN REACH.
--- NOTE | 2020-06-09 00:15 | NUR ---
PT RESTING IN BED WITH EYES CLOSED, NAD.
--- NOTE | 2020-06-09 02:35 | NUR ---
PT CALLED, NEEDED TO USE THE BATHROOM. WITH ASSIST OF ANOTHER RN, PT REQUIRED MOD ASSIST TO GET OUT OF BED, REQUIRED ASSISTANCE LIFTING HER RIGHT LEG, BUT WAS MIMIMAL ASSISTANCE ONCE SHE WAS STANDING. FWW, PT ABLE TO TAKE STEPS TO THE COMMODE, ABLE TO STAND AND GET INTO BED WITH MIMIMAL ASSISTANCE. REQUIRED ASSISTANCE TO PUT LEGS IN BED, SHE STATED SHE WAS ABLE TO MOVE EASIER THAN THE DAY BEFORE. WARM BLANKET PROVIDED, CALL LIGHT WITHIN REACH. PT WITH NO OTHER NEEDS.
--- NOTE | 2020-06-09 04:52 | NUR ---
PT RESTING IN BED WITH EYES CLOSED, NAD. RESPIRATIONS EVEN AND UNLABORED. TELE#5. HR 80'S.
--- NOTE | 2020-06-09 06:57 | NUR ---
VS AND I&O COMPLETE. PT DENIES PAIN. TELE #5. HR IN THE 90'S. DENIES NEEDS AT THIS TIME. CALL LIGHT IN REACH.
--- NOTE | 2020-06-09 07:30 | NUR ---
RECEIVED REPORT AT 0700, PT WAS SLEEPING IN BED.
--- NOTE | 2020-06-09 08:00 | NUR ---
Spoke with daughter, plan is for dc tomorrow if [facility] a bed. Ordered Covid swab and plan for its return tomorrow prior to dc. Daughter would like van to transport as they have difficulty getting him in and out of the car. Will schedule after I speak with [facility] for bed availability.
--- NOTE | 2020-06-09 08:15 | NUR ---
both nares swabbed for covid-19 without complication smaple taken to [facility] for testing.
--- NOTE | 2020-06-09 09:00 | NUR ---
LOBES ARE CLEAR, PT DENIES WEAKNESS, ABD SOUNDS PERSENT, NO NEURO SYMPTOMS NOTED AT THIS TIME. SKIN STILL HAS BRUISING ON CHEST AND LEGS, DRESSINGS ARE INTACT BUT NEED TO BE CHANGED TODAY. HR STILL UP TO 160'S WITH ACTIVITY.
--- NOTE | 2020-06-09 11:06 | NUR ---
PT IN ROOM. PT WORKED WITH PT ALREADY. HR STILL UP TO THE 160'S WITH ACTIVITY.
--- NOTE | 2020-06-09 11:45 | NUR ---
Call from Jennifer at [facility] they will have a bed open tomorrow. REquested pt dc to them at 1 pm and she states this is fine. Updated daughter. Spoke with Chino in the lab, asked if covid test will be complete by tomorrow. Per Chino can take 1-3 day for results. He will call and see if he can fast track it. Later notified by Chino, Covid test is running currently and will have results tonight or am. Will cont. to plan for dc in the afternoon in case there are issues with Covid results.
[2020-06-09] MEDS ORDERED: HYDROCODON-ACE1 EA10 PO (12:32)
[2020-06-09] MEDS ORDERED: GABAPENTIN300 MG PO (12:32)
[2020-06-09] MEDS ORDERED: HEALTHYLAX17 GM PO (12:32)
[2020-06-09] MEDS ORDERED: TYLENOL325 MG PO (12:32)
--- NOTE | 2020-06-09 12:49 | NUR ---
ASSISTED PT TO BSC. PT DID WELL OVERALL. RIGHT LEG IS STILL SWOLLEN AND PAINFUL TO TOUCH. WILL CONTINUE TO MONITOR.
[2020-06-09] MEDS ORDERED: ADULT LOW DOSE81 MG PO (13:02)
--- NOTE | 2020-06-09 13:43 | NUR ---
PATIENT AWAKE IN BED, VITALS AND I&OS CHARTED. PATIENT AGREED TO BEDBATH, THIS LIME VAT TENDER WILL BE BACK FOR THAT. CALL LIGHT AND PERSONAL ITEMS NEARBY
--- NOTE | 2020-06-09 14:00 | NUR ---
Called and schedule transport per [facility] and they will pick pt up in the [facility] van at [address]. Dr. Lofton aware and will complete orders.
--- NOTE | 2020-06-09 14:07 | NUR ---
DRESSINGS WERE CHANGED ON RIGHT KNEE AND RIGHT LOWER TAYLOR. SKIN TEAR ON RIGHT MID TAYLOR IS POWER. SKIN TEARS WERE CLEANSED WITH NS AND BACATRACIN WAS APPLIED. RIGHT LEG PAIN AND EDEMA IS UNCHANGED. NO NEW CONCERNS NOTED AT THIS TIME.
--- NOTE | 2020-06-09 14:53 | NUR ---
PASRR, Orders, prescriptions x 2, dc summary, PT notes faxed to Jennifer at [facility]. Called and left message asking she confirm she received.
--- NOTE | 2020-06-09 15:33 | NUR ---
PT TRANSFERED TO COMMODE WITH 2PA, GAIT BELT AND FWW. PT WEAK. SMALL BM PASSED. BACK TO BED AND REPOSITIONED IN BED. NO FURTHER NEEDS
--- NOTE | 2020-06-09 16:29 | NUR ---
BEDBATH COMPLETE, SHOWER CAP AND SKIN CARE PROVIDED. REDNESS AND SWELLING NOTED ON RIGHT LEG, AKASH OLSEN NOTIFIED. PATIENT TRANSFERED FROM CHAIR TO BED-2PA WITH RN. LEGS ELEVATED, PERSONAL ITEMS AND CALL LIGHT WITHIN EASY REACH
--- NOTE | 2020-06-09 17:00 | NUR ---
PT OVERALL HAD A GOOD DAY, DRESSINGS ON RIGHT LOWER LEG WERE CHANGED. SKIN TEARS WERE CLEANED WITH NS AND BACATRACIN WAS APPLIED UNDER A FOAM DRESSING. V/S HAVE BEE WDL TODAY UNTIL THE LAST SET OF V/S WHICH SHOWED A TEMP OF 99.2. RIGHT LEG STILL IS SWOLLEN AND HER ANNKLE IS TENDER TO TOUCH. PT IS ABLE TO BEAR WEIGHT HOWEVER. NO NEW WEAKNESS WAS NOTED. PT NEUROLOGICALLY INTACT.
--- NOTE | 2020-06-09 19:10 | NUR ---
IN ROOM FOR REPORT, PT IS AWAKE IN BED. SHE DENIES NEEDS AT THIS TIME. CALL LIGHT IS CLOSE.
--- NOTE | 2020-06-09 21:06 | NUR ---
IN ROOM TO ASSESS PT AND ADMINISTER MEDICATIONS. ADMINISTERED TYLENOL FOR 5/10 PAIN IN R LEG. IT IS TENDER TO THE TOUCH AND RED, ALLEYVN IN PLACE ON R TAYLOR. DESENEX POWDER APPLIED UNTER L BREAST. 2PA TO BSC AND BACK TO BED, TELE DC'D PER MD ORDER. PT DENIES FURTHER NEEDS AT THIS TIME. CALL LIGHT IS CLOSE.
--- NOTE | 2020-06-09 22:25 | NUR ---
CLARA RN RECEIVED CALL FROM RADIOLOGIST TO NOTIFY STAFF OF PATIENTS ULTRASOUND RESULTS. PLACED CALL TO MD. RECEIVED VERBAL ORDERS. VERIFIED VERBAL ORDER USING THE READBACK METHOD. WILL NOTIFY PRIMARY RN.
--- NOTE | 2020-06-10 00:07 | NUR ---
AMINISTERED LOVENOX INJ, 2PA W/FWW TO BSC AND BACK TO BED. PT DENIES FURTHER NEEDS AT THIS TIME. CALL LIGHT IS CLOSE.
--- NOTE | 2020-06-10 02:20 | NUR ---
PT IS RESTING WITH EYES CLOSED, RR IS EVEN AND NONLABORED. CALL LIGHT IS CLOSE.
--- NOTE | 2020-06-10 03:58 | NUR ---
PT IS RESTING WITH EYES CLOSED, RR IS EVEN AND NONLABORED. CALL LIGHT IS CLOSE.
--- NOTE | 2020-06-10 06:15 | NUR ---
ENTERED ROOM, PT WAS HELPED TO BSC. PT STATES SHE HAS A HEADACHE. ADMINISTERED TYLENOL FOR 2/10 PAIN. 2PA WITH FWW BACK TO BED WITH HELP FROM MAINTENANCE REPAIRMANAKASH Gee LEG DRESSINGS ARE INTACT. PT DENIES SOB AND PT DENIES FURTHER NEEDS AT THIS TIME. CALL LIGHT IS CLOSE.
--- NOTE | 2020-06-10 07:30 | NUR ---
RECEIVED REPORT AT 0700, PT WAS SLEEPING AT THAT TIME.
--- NOTE | 2020-06-10 09:00 | NUR ---
Called and updated Jennifer at [facility] pt now has a DVT, but plans on dc today. She confirms they will accept. UPdated orders and amended DC summary faxed.
--- NOTE | 2020-06-10 09:30 | NUR ---
V/S WDL, NO CHANGES IN RIGHT LEG EITHER. EDEMA PRESENT UNCHANGED. NO NUMBNESS OR TINGLING IN RIGHT FOOT. LOBES CLEAR, PT HAS NO SOB OR CHEST PAIN. WILL CONTINUE TO MONITOR.
[2020-06-10] MEDS ORDERED: ELIQUIS5 MG PO (09:37)
--- NOTE | 2020-06-10 10:00 | NUR ---
Case Management Notified by physician in morning report that patient has a DVT called and spoke with [facility] at [facility], update about DVT, doctors plan for pt to discharge today, Jennifer states this is fine. Updated medication order and updated discharge summery faxed to [facility]. Plan remains pt to discharge at 1pm per wheelchair van.
--- NOTE | 2020-06-10 12:00 | NUR ---
PT IS READY FOR D/C.
== END 2020-06-10 12:50 | DRG 69 ==
LOC: ED 10:20 → MS 15:06
PROVIDERS: ADMIT Internal Medicine; ATTEND Internal Medicine
DX: G45.9 Transient cerebral ischemic attack, unspecified (principal); Z20.822 Contact with and (suspected) exposure to COVID-19; I99.9 Unspecified disorder of circulatory system; R26.89 Other abnormalities of gait and mobility; I10 Essential (primary) hypertension; R09.82 Postnasal drip; R00.0 Tachycardia, unspecified; R05 Cough; Z79.899 Other long term (current) drug therapy; Z88.8 Allergy status to other drugs, medicaments and biological substances; Z99.3 Dependence on wheelchair
CPT/HCPCS: 36415; 70450; 70496; 70498; 71046; 72125; 73502; 73560; 80048; 80053; 81001; 82550; 83735; 84484; 85025; 85610; 85730; 93005; 93010; 93971; 97110; 97162; 97530; 99285-25; C9803; J1650; J2405; J7030; Q9967; U0003

== ENCOUNTER 2020-08-06 01:31 | Emergency (ER) | payer MEDICARE, OTHER ==
[~2020-08-06] VITALS: Ht 154.9 cm; Wt 50.8 kg
[~2020-08-06 01:31] MED LIST changes: +ADULT LOW DOSE81 MG PO; +ELIQUIS5 MG PO; +FLONASE SENSIM5.9 ML NAS; +HEALTHYLAX17 GM PO; +HYDROCODON-ACE1 EA10 PO; +TYLENOL325 MG PO
--- OUTSIDE RECORDS SUMMARY | 2020-08-06 01:34 | XMS ---
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 Shayy VISIT COUNT (12 MO.) Sara Echeverria TOTAL 4 NOTE: Visits indicate total known visits. 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 - Allergy status to other drugs, medicaments and biological substances INPATIENT VISIT TRACKING (12 MO.) 06/05/2020 15:06 [facility] TYPE: [facility] COMPLAINT: - TIA V CVA DIAGNOSES: - Dizziness and giddiness - Transient cerebral ischemic attack, unspecified - Unspecified disorder of circulatory system - Postnasal drip - Other abnormalities of gait and mobility - Other retirement (current) drug therapy - Dependence on wheelchair - Cough - Tachycardia, unspecified - Essential (primary) hypertension - Allergy status to other drugs, medicaments and biological substances 12/09/2019 17:[address] [facility] TYPE: Observation COMPLAINT: - LEFT ANKLE SPRAIN, NOT ABLE TO WALK DIAGNOSES: - Allergy status to other drugs, medicaments and biological substances - Cough - Other retirement (current) drug therapy - Nausea with vomiting, unspecified - Bee allergy status - Essential (primary) hypertension - Hypokalemia - Atherosclerotic heart disease of [place] coronary artery without angina pectoris - Tachycardia, unspecified - Contact with and (suspected) exposure to other viral communicable diseases - Allergy status to other drugs, medicaments and biological substances - Unspecified fall, initial encounter - Other postherpetic nervous system involvement - Pain in left lower leg [email or web address]
[2020-08-06] MEDS ORDERED: GABAPENTIN600 MG PO (02:14)
[2020-08-06] MEDS ORDERED: POTASSIUM CHLO20 ME2 PO (02:14)
--- NOTE | 2020-08-06 17:33 | EKG ---
[facility] [address] [facility] [address] [place], [place] [address] Signed Sinus rhythm with 1st degree AV block Low voltage QRS Possible Inferior infarct (cited on or before 25-DEC-2018) Abnormal ECG When compared with ECG of 05-JUN-2020 10:52, No significant change Confirmed by COLLIN ROPER MD ([id number] on 08/06/2020 5:33:28 PM Electronically Signed By: COLLIN ROPER MD 08/06/20 1733 PATIENT NAME: MARIA CMICHELLE L Electrocardiogram DATE OF : 35 PHYSICIAN: COLLIN ROPER MD REPORT #: [id number] REPORT IS CONFIDENTIAL AND NOT TO BE RELEASED WITHOUT AUTHORIZATION
== END 2020-08-06 04:08 | disposition home or self-care (01) ==
LOC: ED 01:31
DX: R41.82 Altered mental status, unspecified (principal); Z51.5 Encounter for palliative care; I10 Essential (primary) hypertension; Z91.030 Bee allergy status; Z88.1 Allergy status to other antibiotic agents; Z79.899 Other long term (current) drug therapy
CPT/HCPCS: 51701; 70450; 71045; 80053; 81001; 84484; 85025; 85610; 85730; 93005; 93010; 99285-25; J2405